=== PATIENT | female | born 1960 | race Caucasian/White ===

== ENCOUNTER 2018-12-15 09:03 | Day surgery (SDC) | payer BC, OTHER ==
[2018-12-15] MEDS ORDERED: Propofol 200 MG/20 ML SDV ONE (09:25)
[2018-12-15] MEDS ORDERED: fentaNYL 100 MCG/2 ML SDV ONE (09:25)
[2018-12-15] MEDS ORDERED: Midazolam 1 MG/ML 2 ML SDV ONE (09:25)
[2018-12-15] MEDS ORDERED: Dextrose 5%-Lactated Ringers 1,000 ML IV SCH (09:45)
[2018-12-15] MEDS ORDERED: Glycopyrrolate 0.2 MG/ML 2 ML SDV IVPUSH ONE (10:00)
--- NOTE | 2018-12-19 11:07 | OR ---
DATE OF PROCEDURE: 12/15/2018 SURGEON: Erlin Lala MD PREOPERATIVE DIAGNOSIS: Weight regain, status post laparoscopic adjustable gastric band placement. POSTOPERATIVE DIAGNOSES: 1. Weight regain, status post laparoscopic adjustable gastric band placement. 2. Marked esophageal dilation and esophagitis above the band. OPERATIVE PROCEDURE: Esophagogastroduodenoscopy with antral biopsies for CLOtest. ANESTHESIA: IV sedation. INDICATION FOR PROCEDURE: This is a 58-year-old, status post laparoscopic adjustable gastric band placement in December of 2006. This was done in [facility] in [place]. The patient's preoperative weight was 245 pounds. She did get down to around 203 pounds, more or less, postoperatively and maintained the range in the 203 to 208 pounds range for 5 years and gradually has increased her weight. Her present weight is 236 pounds with a height of 5 feet 4.5 inches, giving her a BMI of 39.9. At this point, the patient wishes to consider conversion of band status to Ruperto-en-Y gastric bypass. Plan is to proceed with an upper GI endoscopy for evaluation of the band situation, and potential risks including bleeding and perforation were discussed, and the patient wishes to proceed. DETAILS OF PROCEDURE: The patient was taken to the operating room and placed in a left lateral decubitus position. IV sedation was administered, after which the upper GI endoscope was passed orally through the length of the esophagus into the stomach, and from there, through the pyloric channel and into the proximal duodenum. Findings included a quite markedly dilated esophagus with some marked esophagitis in the distal one-third of the esophagus. This was associated with a band implant, which was in normal location and easily traversed, i.e., there is no obstruction related to the band. We were likely dealing with an esophageal dilation above the band. Apart from that, retroflexion in the stomach revealed no evident complications with the band, such as erosion, and there was some patchy antral gastritis. The visualized portion of the pyloric channel and duodenum were unremarkable. At this point, biopsies were taken from the antrum, and they were sent for CLOtest to assess the patient's H. pylori status, and the scope was withdrawn and the procedure was then concluded. The patient appeared to be a candidate for conversion to Ruperto-en-Y gastric bypass, and in fact, given the degree of esophageal dilation, this would appear to be medically necessary. This will also result in improvement in the patient's obesity to a significant degree, and we will contact the patient's health insurance regarding prior authorization for the conversion of the band to Ruperto-en-Y gastric bypass status. Erlin Lala MD /[id number]
== END 2018-12-15 13:03 | disposition home or self-care (01) ==
LOC: JP.SDS 09:03
PROVIDERS: ATTEND Surgery
DX: K20.9 Esophagitis, unspecified (principal); K29.70 Gastritis, unspecified, without bleeding; Z98.84 Bariatric surgery status; E66.01 Morbid (severe) obesity due to excess calories; Z68.39 Body mass index [BMI] 39.0-39.9, adult; Z88.0 Allergy status to penicillin
CPT/HCPCS: 43239; 87081; J2250; J2704; J3010; J3490; J7042

== ENCOUNTER 2019-03-05 05:28 | Inpatient (IN) | payer OTHER ==
[2019-03-05] MEDS ORDERED: Celecoxib 200 MG Cap PO ONE (05:30)
[2019-03-05] MEDS ORDERED: Gabapentin 300 MG Cap PO ONE (05:30)
[2019-03-05] MEDS ORDERED: Acetaminophen 500 MG Tab PO ONE (05:30)
[2019-03-05] MEDS ORDERED: Scopolamine 1.5 MG Transdermal Patch TOP ONE (06:00)
[2019-03-05] MEDS ORDERED: Dextrose 5%-Lactated Ringers 1,000 ML IV SCH (06:00)
[2019-03-05] MEDS ORDERED: fentaNYL 250 MCG/5 ML SDV ONE ×2 (06:37→08:26)
[2019-03-05] MEDS ORDERED: Lactated Ringers 1,000 ML ONE (06:38)
[2019-03-05] MEDS ORDERED: Dexamethasone 4 MG/ML SDV ONE (06:38)
[2019-03-05] MEDS ORDERED: Ondansetron 4 MG/2 ML SDV ONE (06:38)
[2019-03-05] MEDS ORDERED: Neostigmine Methylsulfate 1 MG/ML 5 ML Syringe ONE (06:38)
[2019-03-05] MEDS ORDERED: Rocuronium 50 MG/5 ML Vial ONE (06:38)
[2019-03-05] MEDS ORDERED: Propofol 200 MG/20 ML SDV ONE (06:38)
[2019-03-05] MEDS ORDERED: Glycopyrrolate 0.2 MG/ML 5 ML MDV ONE (06:38)
[2019-03-05] MEDS ORDERED: Succinylcholine 200 MG/10 ML MDV ONE (06:38)
[2019-03-05] MEDS ORDERED: cefOXitin 2 GM Vial ONE (06:41)
[2019-03-05] MEDS: cefOXitin 2 GM in Sodium Chloride 0.9% 50 ML IV ONE ×2 (07:26→08:46)
[2019-03-05] MEDS ORDERED: Lidocaine 0.4%/D5W 2 GM/500 ML BAG IV SCH (07:30)
[2019-03-05] MEDS ORDERED: Ketamine 500 MG/5 ML MDV IV SCH (07:30)
[2019-03-05] MEDS ORDERED: Ketamine 50 MG in Sodium Chloride 0.9% 49.5 ML IV SCH (07:30)
[2019-03-05] MEDS ORDERED: Lidocaine 2% 100 MG/5 ML Syringe IVPUSH SCH (07:30)
[2019-03-05] MEDS ORDERED: HYDROmorphone 1 MG/ML Syringe IV PRN (11:20)
[2019-03-05] MEDS ORDERED: Ondansetron 4 MG/2 ML SDV IVPUSH PRN (11:20)
[2019-03-05] MEDS ORDERED: HYDROmorphone 0.5 MG/0.5 ML Syringe IVPUSH PRN (11:20)
[2019-03-05] MEDS ORDERED: hydrOXYzine HCl 100 MG/2 ML SDV IM PRN (11:20)
[2019-03-05] MEDS ORDERED: diphenhydrAMINE 50 MG/ML SDV IVPUSH PRN (11:20)
[2019-03-05] MEDS ORDERED: Labetalol 20 MG/4 ML Syringe IVPUSH PRN (11:20)
[2019-03-05] MEDS ORDERED: Metoclopramide 10 MG/2 ML SDV IVPUSH PRN (11:20)
[2019-03-05] MEDS ORDERED: Pantoprazole 40 MG Vial IVPUSH SCH (12:00)
[2019-03-05] MEDS ORDERED: Acetaminophen Soln 650 MG/20.3 ML UD Cup PO SCH (12:00)
[2019-03-05] MEDS: Dextrose 5%-Lactated Ringers 1,000 ML IV SCH ×2 (12:09→23:15)
[2019-03-05] MEDS: Acetaminophen 325 MG Tab PO SCH ×3 (12:11→23:14)
[2019-03-05] MEDS: Gabapentin 250 MG/5 ML Solution ML 470 ML Bottle PO SCH ×2 (14:04→20:18)
[2019-03-05] MEDS: cefOXitin 2 GM in Sodium Chloride 0.9% 50 ML IV SCH ×2 (14:05→20:18)
[2019-03-05] MEDS ORDERED: MVI, Adult with Vitamin K 10 ML, Thiamine 200 MG, Chromium/Copper/Mang/Selen/Zn 1 ML in... IV SCH ×4 (16:00)
[2019-03-05] MEDS: Heparin Sodium 5,000 Units/ML Vial SUBCUT SCH (17:49)
[2019-03-06] MEDS: cefOXitin 2 GM in Sodium Chloride 0.9% 50 ML IV SCH ×3 (01:50→14:08)
[2019-03-06] MEDS ORDERED: Iopamidol 612 MG/ML 50 ML SDV PO STA (02:53)
--- NOTE | 2019-03-06 03:21 | CRLCR ---
Indication: Status post Ruperto-en-Y leak check Technique: Abdomen 3 view Comparison: None Findings/Impression: Three submitted images for interpretation. On the 1st image, contrast is present in the distal esophagus, residual stomach and proximal small bowel with a suture line in the epigastric region. Left upper quadrant drain present. Subsequent 2 images show further small bowel opacification consistent with a gastrojejunostomy without gross extravasation. Dictated by Nikolay Escalante MD @ Mar 06 2019 3:18AM Signed by Dr. Nikolay Escalante @ Mar 06 2019 3:20AM
[2019-03-06] MEDS: Acetaminophen 325 MG Tab PO SCH ×4 (05:33→23:29)
[2019-03-06] MEDS: Heparin Sodium 5,000 Units/ML Vial SUBCUT SCH ×2 (05:36→17:09)
[2019-03-06] MEDS: Dextrose 5%-Lactated Ringers 1,000 ML IV SCH (05:36)
[2019-03-06] MEDS: Celecoxib 200 MG Cap PO SCH (08:17)
[2019-03-06] MEDS: Gabapentin 250 MG/5 ML Solution ML 470 ML Bottle PO SCH ×3 (08:17→20:59)
[2019-03-06] MEDS ORDERED: traZODone 50 MG Tab PO PRN (08:44)
[2019-03-06] MEDS ORDERED: Dextrose 5%-Lactated Ringers 1,000 ML IV SCH (08:45)
[2019-03-06] MEDS: SCOPOLAMINE PATCH CHECK TOP SCH (09:37)
[2019-03-06] MEDS: Aspirin 81 MG Tab.EC PO SCH (09:52)
[2019-03-06] MEDS: Chlorthalidone 25 MG Tab PO SCH (09:52)
[2019-03-06] MEDS: FLUoxetine 10 MG Cap PO SCH (09:52)
[2019-03-06] MEDS ORDERED: Pantoprazole 40 MG Delayed-Release Granules 1 Packet PO SCH (12:00)
[2019-03-06] MEDS ORDERED: MVI, Adult with Vitamin K 10 ML, Thiamine 200 MG, Chromium/Copper/Mang/Selen/Zn 1 ML in... IV SCH ×4 (16:00)
[2019-03-07] MEDS: Acetaminophen 325 MG Tab PO SCH (05:56)
[2019-03-07] MEDS: Heparin Sodium 5,000 Units/ML Vial SUBCUT SCH (05:56)
[2019-03-07] MEDS ORDERED: Magnesium Hydroxide 400 MG/5 ML Susp 30 ML Cup PO PRN (07:24)
[2019-03-07] MEDS: Gabapentin 250 MG/5 ML Solution ML 470 ML Bottle PO SCH (08:52)
[2019-03-07] MEDS: Aspirin 81 MG Tab.EC PO SCH (08:53)
[2019-03-07] MEDS: Chlorthalidone 25 MG Tab PO SCH (08:53)
[2019-03-07] MEDS: FLUoxetine 10 MG Cap PO SCH (08:53)
[2019-03-07] MEDS: SCOPOLAMINE PATCH CHECK TOP SCH (08:53)
[2019-03-07] MEDS: Celecoxib 200 MG Cap PO SCH (08:53)
[2019-03-07] MEDS ORDERED: Cyanocobalamin (Vitamin B12) 1,000 MCG/ML SDV IM ONE (09:00)
--- NOTE | 2019-03-07 15:06 | DISCH ---
ADMISSION DIAGNOSES: 1. Morbid obesity. 2. Intolerance to gastric laparoscopic band. 3. Generalized anxiety disorder. 4. Heartburn. 5. Hyperlipidemia. 6. Hypertension. 7. Insomnia. 8. Obstructive sleep apnea, on CPAP. 9. Osteopenia. DISCHARGE DIAGNOSIS: 1. Removal of laparoscopic gastric band system. 2. Formation of Ruperto-en-Y gastric bypass surgery. 3. Liver biopsy. 4. 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 Date of surgery 03/05/2019. Surgeon, Erlin Lala MD. HISTORY: Aiyana Ortiz is a 58-year-old female, who had laparoscopic gastric band system. She had intolerance to the lap band with gastric reflux. She also had some weight regain. After preoperative evaluation and discussion of possible risks and possible complications, she wished to proceed with surgical procedure. HOSPITAL COURSE: Aiyana had her surgery on 03/05/2019. She had no operative complications. On postoperative day #1, she was started on step 2 gastric bypass diet, her home medications. On postoperative day #2, she received dietary instruction, a B12 1000 mcg IM injection, postop instructions. Vital signs were stable, pain was well managed, and she was able to be discharged to home. PHYSICAL EXAMINATION: GENERAL: Aiyana Ortiz is a 58-year-old female. Height is 5 feet 4.5 inches, weight is 226 pounds, BMI is 38. VITAL SIGNS: TPR is 98, 58, 16. Blood pressure 122/52. HEENT: Negative. NECK: Supple. HEART: Regular rate and rhythm. LUNGS: Clear. ABDOMEN: Incisions look good. Abdominal binder is on. EXTREMITIES: Without peripheral edema. DISPOSITION: Discharged home. CONDITION: Stable and improving. FOLLOWUP APPOINTMENT: Vivian Haley PA-C, 03/14/2019 at 11 a.m. DISCHARGE MEDICATIONS: 1. Tylenol 650 mg q.6 hours p.r.n. pain. 2. Celebrex 200 mg p.o. daily #14. 3. Milk of magnesia 30 mL, 2 were sent home with the patient to take daily as needed for constipation. 4. Zofran ODT 4 mg q.6 hours p.r.n. nausea #30. She is to resume home medications: 1. Chlorthalidone 12.5 mg oral daily. 2. Fluoxetine 10 mg oral daily. 3. Claritin-D 24 hour tablet one oral daily p.r.n. allergies. 4. Lipitor 20 mg oral daily. 5. Trazodone 25 mg oral at bedtime p.r.n. sleep. Discontinue taking all vitamins and supplements until first postoperative appointment. DIET: Step 2 gastric bypass diet for 2 weeks until 03/20/2019. Drink 8 to 10 glasses of water a day. ACTIVITY: No lifting greater than 10 pounds for 2 weeks. Other activity: Walk at least 6 times daily inside your home. Driving, do not drive for one week. Shower/bathing: May shower. DISCHARGE INSTRUCTIONS: Notify provider if any fever, increased pain, nausea, vomiting. Keep site clean and dry. Wear abdominal binder for 2 weeks and then as tolerated. SPECIAL INSTRUCTION: Use incentive spirometer 10 times every hour while awake for 1 week. CC: Francine Choudhury [employer] [place] [id number] [place] [address]
--- NOTE | 2019-03-09 17:39 | PN ---
DATE OF SERVICE: 03/06/2019 The patient has been afebrile with stable vital signs, status post conversion of band status to Ruperto-en-Y gastric bypass. Clinically, she is doing well at this point, and her upper GI x-ray looks good. We will go up to a step-2 diet today and pain control is adequate. We will restart some of her pertinent oral medications. Erlin Lala MD /[id number]
--- NOTE | 2019-03-12 11:43 | OR ---
DATE OF PROCEDURE: 03/05/2019 PREOPERATIVE DIAGNOSIS: Progressive intolerance of laparoscopic adjustable gastric band associated with weight regain. POSTOPERATIVE DIAGNOSES: 1. Progressive intolerance of laparoscopic adjustable gastric band associated with weight regain. 2. Marked hepatomegaly. 3. Immobile small bowel mesentery, requiring small bowel resection to allow adequate mobility of jejunojejunostomy. OPERATIVE PROCEDURE: Diagnostic laparoscopy with 1. Removal of laparoscopic adjustable gastric band system (61664). 2. Formation of Ruperto-en-Y gastric bypass with long limb gastroenterostomy (96679). 3. Palmer-Cut needle liver biopsy (59088). 4. Small bowel resection (05462). ANESTHESIA: General. ATHLETIC FIELD CUSTODIAN: Vivian Haley PA-C, and KELSI Denton1. INDICATION FOR PROCEDURE: This is a 58-year-old presenting for removal of laparoscopic adjustable gastric band system along with conversion to Ruperto-en-Y gastric bypass. The patient has had significant weight regain with the band in place. The patient also had developed pain at her port site as well as symptoms consistent with the endoscopically identified esophageal dilation and fluid retention within the esophagus. The plan is to proceed with band removal and conversion to Ruperto-en-Y gastric bypass. Potential risks including bleeding, infection, leaks from various GI tract closures as well as possibility of bowel obstruction over time were all reviewed, and the patient wishes to proceed. DETAILS OF PROCEDURE: The patient was taken to the operating room and placed in a supine position. After general endotracheal anesthesia was induced, a Koehler catheter was inserted which was removed at the end of the procedure and the abdomen prepped and draped. 15 cm inferior and 5 cm left of xiphoid process, a transverse incision was made and the peritoneal cavity entered under direct vision with an Optiview trocar, inflated to 15 mmHg pressure of CO2. Laparoscope was then reinserted. No underlying trocar insertion site injuries were seen. Following this, bilateral subcostal transverse abdominis plane blocks were placed and 5 additional trocars were placed across the upper and mid abdomen. Attention was then taken initially to removal of the band. The liver was retracted anteriorly, and some attachments between the band and the area of the stomach and the liver were taken down with Harmonic Scalpel. The band was then freed up of its fibrous attachments to the point that it could be mobilized through the band tunnel. The band was divided and removed from the area of encirclement of the gastric cardia. The port tubing was divided in the main portion of the band. It was then detached and brought out through the left lateral trocar site. At this point, the pouch formation was accomplished by means of vision of the imprinted area in the gastric cardia, which provided a nice-sized pouch. This was done with 3 firings of JOSE black loads, and upon completion of the pouch, both staple lines appeared to be intact. At this point, the patient was noted to have marked hepatomegaly, and Palmer-Cut needle biopsy was obtained from left lobe of the liver. The omentum was then divided in the midline up to the level of the transverse colon. This allowed identification of small bowel at ligament of Treitz. The small bowel was then traced out 150 cm distal to that point, where it was divided transversely with the JOSE stapler. The small bowel mesentery was quite thickened and foreshortened. Some of this was related to the band tubing being down in the area of the mesenteric base causing some fibrous reaction in those areas to facilitate a more adequate mobility of the jejunojejunostomy. Roughly 10 cm of the biliopancreatic limb was then divided after division of the underlying mesentery and the small limb being divided with additional JOSE staple load. That small bowel specimen was delivered from the field. The small bowel was then traced out 200 cm distal to that point, where the [id number] enteroenterostomy was accomplished with internal firing of the Endo-JOSE 60 mm stapler. Common opening was then closed transversely with the same stapler and the angles anastomosed and mesenteric defect approximated with some 0 Ethibond stitch along with 4 mL of fibrin sealant. The Ruperto limb was then brought up through the antecolic, positioned up to the level of the gastroesophageal junction without tension. The anvil of a 25 mm EEA stapler was then attached to Uinta sump tube, brought down through the mouth, taken out a small opening in the gastric pouch just posterior of the staple line along the anvil likewise to be pulled down into that area. The main body of the EEA stapler was then brought through the opening made in the end of the Ruperto limb, brought up the anvil, and united with it thus creating gastrojejunostomy. Upon removal of the stapler, double donuts of the mucosa were noted within it, and the small bowel was closed off with a vascular staple line. Gastrojejunostomy was reinforced with some 3-0 Vicryl seromuscular stitch along with fibrin sealant. The omentum was then mobilized along the left side of the anastomosis to the extent possible as well. Leak test was accomplished with injection of 120 mL of air in the gastric pouch while it was submerged with cefoxitin-containing saline solution. No leaks were identified. A single Vinny-Parish drain was then placed through the left lateral trocar site and positioned adjacent to the gastric cardia and from there down into the splenic fossa. With no further problems noted, the trocars were removed and the peritoneal cavity deflated. Incisions were closed with 4-0 Vicryl skin stitch and dressing applied. The patient was taken to the recovery room in satisfactory condition. Physician per diem physical therapist assistant, Vivian Haley, played an essential role in assisting in this case, helping to position the patient, retract structures as needed as well as suturing and cutting sutures when indicated. Her presence improved patient safety and decreased the operative time. Erlin Lala MD /[id number]
== END 2019-03-07 10:10 | disposition home or self-care (01) | DRG 328 ==
LOC: JP.SDSSCHI 05:28 → JP.SDS 05:28 → EDSTATUS 07:15 → JP.2SS 10:00
PROVIDERS: ADMIT Surgery; ATTEND Surgery
PROC: 0DP64CZ Removal of Extraluminal Device from Stomach, Percutaneous Endoscopic Approach (ICD-10-PCS; principal; 2019-03-05)
PROC: 0D164ZA Bypass Stomach to Jejunum, Percutaneous Endoscopic Approach (ICD-10-PCS; 2019-03-05)
PROC: 0FB24ZX Excision of Left Lobe Liver, Percutaneous Endoscopic Approach, Diagnostic (ICD-10-PCS; 2019-03-05)
PROC: 0DB84ZZ Excision of Small Intestine, Percutaneous Endoscopic Approach (ICD-10-PCS; 2019-03-05)
DX: K95.09 Other complications of gastric band procedure (principal); Y83.8 Other surgical procedures as the cause of abnormal reaction of the patient, or of later complication, without mention of misadventure at the time of the procedure; Z98.84 Bariatric surgery status; E66.9 Obesity, unspecified; Z68.38 Body mass index [BMI] 38.0-38.9, adult; R16.0 Hepatomegaly, not elsewhere classified; K59.8 Other specified functional intestinal disorders; F41.1 Generalized anxiety disorder; E78.5 Hyperlipidemia, unspecified; I10 Essential (primary) hypertension; G47.33 Obstructive sleep apnea (adult) (pediatric); Z99.89 Dependence on other enabling machines and devices; Z86.718 Personal history of other venous thrombosis and embolism; M25.659 Stiffness of unspecified hip, not elsewhere classified; M25.652 Stiffness of left hip, not elsewhere classified; G47.00 Insomnia, unspecified; M85.80 Other specified disorders of bone density and structure, unspecified site; Z78.0 Asymptomatic menopausal state; R06.83 Snoring; H25.13 Age-related nuclear cataract, bilateral; Z79.82 Long term (current) use of aspirin; Z90.710 Acquired absence of both cervix and uterus; R63.5 Abnormal weight gain
CPT/HCPCS: 36415; 74240; 86850; 86900; 86901; 88304; 88305; 88307; 88313; 94762; A9270-GY; C9113; J0171; J0330; J0694; J1100; J1644; J2001; J2405; J2704; J2710; J2795; J3010; J3411; J3420; J3490; J7042; J7050; J7120; Q9967

== ENCOUNTER 2019-03-08 08:27 | Inpatient (IN) | payer OTHER ==
[2019-03-08] MEDS ORDERED: Scopolamine 1.5 MG Transdermal Patch TOP SCH (09:00)
[2019-03-08] MEDS ORDERED: Naloxone 0.4 MG/ML SDV IV PRN (09:04)
[2019-03-08] MEDS: HYDROmorphone/Normal Saline 15 MG/30 ML PCA IV PRN (09:26)
[2019-03-08] MEDS: Sodium Chloride 0.9% 1,000 ML IV SCH (09:31)
[2019-03-08] MEDS ORDERED: Ondansetron 4 MG/2 ML SDV IVPUSH PRN (10:56)
[2019-03-08] MEDS ORDERED: fentaNYL 250 MCG/5 ML SDV ONE ×2 (14:25→18:24)
[2019-03-08] MEDS ORDERED: Glycopyrrolate 0.2 MG/ML 5 ML MDV ONE (14:26)
[2019-03-08] MEDS ORDERED: Propofol 200 MG/20 ML SDV ONE (14:26)
[2019-03-08] MEDS ORDERED: Rocuronium 50 MG/5 ML Vial ONE ×2 (14:26→17:26)
[2019-03-08] MEDS ORDERED: Succinylcholine 200 MG/10 ML MDV ONE (14:26)
[2019-03-08] MEDS ORDERED: Ondansetron 4 MG/2 ML SDV ONE (14:26)
[2019-03-08] MEDS ORDERED: Neostigmine Methylsulfate 1 MG/ML 5 ML Syringe ONE (14:26)
[2019-03-08] MEDS ORDERED: Dexamethasone 4 MG/ML SDV ONE (14:26)
[2019-03-08] MEDS ORDERED: Bupivacaine 0.5%/EPINEPHrine 1:200,000 50 ML MDV ONE (17:16)
[2019-03-08] MEDS ORDERED: Meropenem 500 MG SDV ONE (17:16)
[2019-03-08] MEDS ORDERED: hydrOXYzine HCl 100 MG/2 ML SDV IM PRN (18:11)
[2019-03-08] MEDS ORDERED: Benzocaine/Cetylpyridinium/Menthol Lozenge MUCMEM PRN (18:11)
[2019-03-08] MEDS ORDERED: diphenhydrAMINE 50 MG/ML SDV IVPUSH PRN (18:11)
[2019-03-08] MEDS ORDERED: Lactated Ringers 1,000 ML ONE (18:25)
[2019-03-08] MEDS ORDERED: Ketorolac 60 MG/2 ML SDV ONE (18:34)
--- NOTE | 2019-03-08 20:34 | CRLCR ---
INDICATION: Pneumonia TECHNIQUE: Chest radiograph 1 view COMPARISON: None FINDINGS: Severe degradation of image quality noted due to body habitus. Mediastinum: The mediastinum is normal in appearance. The heart silhouette is normal in size and morphology. Lung: Small lung volumes are present bilaterally with patchy airspace infiltrates seen throughout the left lung, likely due to pneumonia. No sign of pleural effusion seen. No pneumothorax is identified. IMPRESSION: 1. Small lung volumes are present bilaterally with patchy airspace infiltrates seen throughout the left lung, likely due to pneumonia. Dictated by Bhanu Casillas MD @ 03/08/2019 8:31:51 PM Dictated by: Bhanu Casillas MD @ 03/08/2019 20:31:54 (Electronically Signed)
[2019-03-08] MEDS ORDERED: Sodium Chloride 0.9% 250 ML IV SCH (21:00)
[2019-03-08] MEDS ORDERED: Sodium Chloride 0.9% 250 ML IV ONE (21:06)
[2019-03-08] MEDS ORDERED: Sodium Chloride 0.9% 1,000 ML IV ONE (23:10)
[2019-03-08] MEDS: Albuterol/Ipratropium 3.0-0.5 MG/3 ML Neb Soln NEB PRN (23:21)
[2019-03-09] MEDS: Sodium Chloride 0.9% 1,000 ML IV SCH ×4 (00:14→23:26)
[2019-03-09] MEDS ORDERED: Iopamidol 612 MG/ML 50 ML SDV PO ONE (08:13)
--- NOTE | 2019-03-09 08:18 | OR ---
DATE OF PROCEDURE: 03/08/2019 SURGEON: Yao Aleman MD PROCEDURES: 1. Diagnostic laparoscopy. 2. Reopening of recent laparotomy. 3. Revision of jejunojejunal anastomosis. FINDINGS: 1. Typical postoperative adhesions secondary to recent laparoscopic Ruperto-en-Y. 2. Jejunojejunal narrowing (not complete narrowing, approximately 50% of luminal volume remains). 3. Significant inflammation of the jejunojejunal anastomosis. 4. Small leak of gastrointestinal contents at the jejunojejunal anastomosis. 5. No other gross abnormalities. COMPLICATIONS: None. PERISHABLE FREIGHT INSPECTOR: None. INDICATIONS: A 58-year-old female who has been diagnosed with a high-grade bowel obstruction at another facility. The patient had significant acute pain in the last 24-hour period. RISKS: Risks, benefits, alternatives, and limitations including, but not limited to infection, bleeding, and perforation were explained to the patient, who wished to proceed. She also understood the risks of revision, open surgery, sepsis, , and other general postoperative complications such as myocardial infarction and stroke. The patient understands these risks and wished to proceed. PROCEDURE IN DETAIL: The patient was placed in a supine position. One of the previous laparoscopic port sites would be opened. This was opened and Optiview trocar was inserted. The patient had, what would be expected as, adhesions in the postoperative period. This was also in conjunction with previous lower abdominal incisions from surgeries in the remote past. Due to these adhesions and the inflammation, it was unable to determine the etiology of this; therefore, this was converted to an open laparotomy. A midline abdominal incision was made. The incision was carried down with electrocautery, and the abdomen was opened sharply with electrocautery. No evidence of enterotomy or abnormality noted during the entry. The small bowel was significantly dilated. The Ruperto-en-Y limb itself showed lymphatic congestion and dilation. This was also similar to the biliopancreatic limb, which also showed significant congestion, dilation and lymphatic congestion. At the jejunal outflow for the common channel, there was significant narrowing due to inflammation. The limb was not stapled off. However, this inflammation was most likely secondary to a small perforation, which was noted and well contained. Therefore, the decision was made to resect this jejunal anastomosis for the concern of a future or ongoing leak. The jejunal anastomosis was removed by using purple load staplers. This was in conjunction with pro yola. The vasculature was transected with pro load staplers. Once this was completed, the common channel was traced back to the ileocecal valve and then ran in a retrograde fashion to ensure a common channel. The anastomosis would be created by [id number] functional end-to-end staplers. These were double anastomosis with two 60 staplers, Vicryl sutures to reinforce the sutures to prevent "unzipping." Once the [id number] anastomosis was completed, the defect in the bowel was grasped with Stephanie clamps and subsequently transected. All anastomoses were inspected for viability, flow, leak, and bleeding, all were viable with no evidence of bleeding and no leaks noted. These were then reinforced with some Vicryl sutures. In addition, Tisseel, 8 mL, was used to reinforce this. Irrigation was performed at multiple points during this procedure with irrigation of both meropenem containing normal saline and normal saline. Once the anastomosis was noted to be viable and complete with Tisseel, two 10 flat Vinny- Parish drains were placed. One was placed in close proximity to the anastomosis and the other was placed in the lower pelvis. A third Vinny-Parish drain, which would be the superior one of the 3 drains, was also placed in the subcutaneous tissues. The fascia was then closed with #1 Vicryl in running sutures x2. The subcutaneous tissues were approximated and thoroughly irrigated. Skin was closed with yola. All drains were sutured in with silk sutures. Aquacel Ag dressing was applied. The patient remained normothermic during the entire procedure. There was no evidence of hypoxia. The patient did not have any episodes of hypotension during this procedure. The patient tolerated the procedure well. Yao Aleman MD /[id number]
--- NOTE | 2019-03-09 08:30 | CONS ---
DATE OF SERVICE: 03/08/2019 REFERRING PHYSICIAN: CONSULTING PHYSICIAN: Yao Aleman MD REASON FOR CONSULTATION: Abdominal pain. HISTORY OF PRESENT ILLNESS: A 58-year-old female who was admitted by the Bariatric Service for evaluation of abdominal pain. The patient was discharged on 03/07/2019, with an admission diagnosis related to a conversion of laparoscopic band to Ruperto-en-Y with small bowel resection. The patient was noted to have dietary instruction, along with starting a diet. She did not have a bowel movement during her hospitalization. The patient reports last bowel movement was a day prior to admission. Her pain is described as 5 to 6/10, is intermittent. A CT scan, which report is not available during this consultation, reports a high-grade bowel obstruction. No physician-to- physician report was given. PAST MEDICAL HISTORY: 1. Osteopenia. 2. History of knee pain. 3. Insomnia. 4. Hypertension. 5. Hyperlipidemia. 6. Heartburn. 7. Anxiety. 8. History of colon polyps. 9. Cataracts. 10.DVT. 11.Knee pain. 12.Sciatic problems. 13.Appendectomy. 14. x2. 15.Band as described above. 16.Hysterectomy. 17.Ventral hernia repair. SOCIAL HISTORY: She is not a smoker. REVIEW OF SYSTEMS: GENERAL: The patient is appropriate for condition. HEENT: Some coughing. CARDIOVASCULAR: No current chest pain. RESPIRATORY: Mild shortness of breath. NEUROLOGICAL: Alert and oriented x3. PSYCHIATRIC: No gross depression. PHYSICAL EXAMINATION: VITAL SIGNS: Temperature 96.4, blood pressure 154/72, pulse 63, respirations 18, and 97% on 2 L. HEENT: Pupils are equal. NECK: Supple. LUNGS: Crackles bilaterally. CARDIOVASCULAR: Regular rhythm and rate. ABDOMEN: Pain with palpation, diffuse mild tenderness, mild guarding, no rebound. EXTREMITIES: Full range of motion. LABORATORY RESULTS: No laboratory results ordered, but apparently were performed at another facility, but not available at this moment. A CT scan as described above. ASSESSMENT AND PLAN: 1. Abdominal pain, report of narrowing/stricture at the Jejunojejunal anastomosis. Plan: The patient will be taken to the operating room for exploratory diagnostic laparoscopy. There is obviously concern at the jejunojejunal anastomosis for a pending problem. The patient also states she has not passed gas for a few days. Plan will be diagnostic laparoscopy with possible revision of her jejunojejunal anastomosis or her Ruperto-en-Y limb. If this is an internal hernia, this will obviously be reduced. We also discussed the possibility of open surgery. We discussed risks, benefits, alternatives, and limitations of this plan, including infection, bleeding, requirement for revision of jejunojejunal anastomosis, septic shock, respiratory failure, cardiovascular compromise, and other risks not listed here. 2. Pneumonia. The patient has pneumonia reported. We will start the patient on broad- spectrum antibiotics in the postoperative pneumonia protocol. Yao Aleman MD /[id number]
[2019-03-09] MEDS: Enoxaparin 40 MG/0.4 ML Syringe SUBCUT SCH (09:00)
[2019-03-09] MEDS: SCOPOLAMINE PATCH CHECK TOP SCH (09:17)
--- NOTE | 2019-03-09 09:29 | CRLCR ---
Addendum: There is air in fluid in the gastric remnant. Contrast is identified within the loop of small bowel in the left abdomen that is likely distal to the jejunostomy. No evidence for small bowel leak or extraluminal contrast. Dictated by Micaela Marino MD @ Mar 09 2019 10:58AM Signed by Dr. Micaela Marino @ Mar 09 2019 11:01AM
--- NOTE | 2019-03-09 09:47 | CRLCR ---
INDICATION: Shortness of breath TECHNIQUE: Chest 2 views. COMPARISON: 17 ET FINDINGS: Two views of the chest. The lungs show mild interstitial opacities consistent with pulmonary edema. This may be increased in the prior study. No evidence for pneumonia. Costophrenic angles sharp. Heart size is within normal. IMPRESSION: Mild pulmonary edema. Dictated by Micaela Marino MD @ Mar 09 2019 9:53AM Signed by Dr. Micaela Marino @ Mar 09 2019 9:54AM
--- NOTE | 2019-03-09 11:18 | PN ---
DATE OF SERVICE: 03/09/2019 SUBJECTIVE: The patient is doing well, significantly improved compared to last night. 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 No nausea, vomiting, shortness of breath, or chest pain. Pain is tolerable with a 2 to 3 out of 10 with Dilaudid. PHYSICAL EXAMINATION: VITAL SIGNS: Temperature 98.3, blood pressure 97/62, pulse of 83, respirations 14, 95% on 6 L. CARDIOVASCULAR: Regular rhythm and rate. RESPIRATORY: Poor inspiratory effort bilaterally. ABDOMEN: Dressing intact. Drain output is serosanguineous. LABORATORY RESULTS: Show hemoglobin 11.9, white blood cell count is normal. Creatinine is slightly elevated at 1.4. ASSESSMENT: Status post revision of jejunojejunal anastomosis. PLAN: 1. GI: The patient will undergo an upper GI. She has already been started on a clear liquid diet, but not taking much amount of intake. 2. Pain. Continue Dilaudid QUALITY ASSURANCE ASSOCIATE. 3. General Disability: We will work on activity and ambulation today. 4. Prophylaxis. The patient is on SCD and Lovenox. 5. Pneumonia: She is on meropenem. Overall, her stats show subjective and objective improvement compared to last 24 hours. 6. ICU status. The patient will remain in the ICU until her saturations are improved. 7. The patient will be transferred to Dr. Chadwick today. Yao Aleman MD /[id number]
[2019-03-10] MEDS: Albuterol/Ipratropium 3.0-0.5 MG/3 ML Neb Soln NEB PRN ×2 (00:38→04:49)
[2019-03-10] MEDS: HYDROmorphone/Normal Saline 15 MG/30 ML PCA IV PRN (04:38)
[2019-03-10] MEDS: Sodium Chloride 0.9% 1,000 ML IV SCH ×3 (07:30→22:31)
[2019-03-10] MEDS: Enoxaparin 40 MG/0.4 ML Syringe SUBCUT SCH (09:51)
--- NOTE | 2019-03-10 09:56 | PCM.SURGPN ---
- General Info Date of Service: 03/10/19 Date of Surgery/Procedure: 03/08/19 POD#: 2 Post-Op Diagnosis: Leak Admission Diagnosis/Problem: Abdominal pain Functional Status: Reports: Pain Controlled, Tolerating Diet, Ambulating, Urinating (Koehler), Incentive Spirometry - Review of Systems General: Reports: No Symptoms HEENT: Reports: No Symptoms Pulmonary: Reports: No Symptoms Cardiovascular: Reports: No Symptoms Gastrointestinal: Reports: No Symptoms, Other (Tolerating Step 1 bariatric diet) . Denies: Flatus Genitourinary: Reports: No Symptoms Musculoskeletal: Reports: No Symptoms Skin: Reports: No Symptoms Neurological: Reports: No Symptoms Psychiatric: Reports: No Symptoms - Patient Data Vitals - Most Recent: Last Vital Signs Temp 95.8 F 03/10/19 07:00 Pulse 83 03/10/19 09:00 Resp 19 03/10/19 07:00 BP 108/66 03/10/19 07:00 Pulse Ox 96 03/10/19 07:00 Weight - Most Recent: 238 lb I&O - Last 24 Hours: Intake & Output 03/09/19 03/10/19 03/10/19 22:59 06:59 14:59 Intake Total 2566 1353 Output Total 475 625 Balance 2095 728 Lab Results Last 24 Hrs: Laboratory Results - last 24 hr 03/10/19 Range/Units 04:40 WBC 13.0 H (4.5-11.0) K/uL RBC 3.34 (3.30-5.50) M/uL Hgb 10.2 L (12.0-15.0) g/dL Hct 33.4 L (36.0-48.0) % MCV 100 H (80-98) fL MCH 31 (27-31) pg MCHC 31 L (32-36) % Plt Count 242 (150-400) K/uL Add Manual Diff Yes Neutrophils % (Manual) 57 (36-66) % Band Neutrophils % 15 H (5-11) % Lymphocytes % (Manual) 14 L (24-44) % Monocytes % (Manual) 13 H (2-6) % Eosinophils % (Manual) 1 L (2-4) % Med Orders - Current: Current Medications Albuterol/Ipratropium (Duoneb 3.0-0.5 Mg/3 Ml) 3 ml NEB Q4H PRN PRN Reason: Shortness of Breath Last Admin: 03/10/19 04:49 Dose: 3 ml Benzocaine/Menthol (Cepacol Sore Throat) 1 lozenge MUCMEM Q1H PRN PRN Reason: Sore Throat Diphenhydramine HCl (Benadryl) 50 mg IVPUSH Q4H PRN PRN Reason: Itching Enoxaparin Sodium (Lovenox) 40 mg SUBCUT DAILY [facility] Last Admin: 03/09/19 09:00 Dose: 40 mg Hydromorphone HCl (Dilaudid Pen Rider 15 Mg In Ns 30 Ml) 0 mg IV ASDIRECTED PRN; Protocol PRN Reason: Pain Last Admin: 03/10/19 04:38 Dose: 15 mg Hydroxyzine HCl (Vistaril) 100 mg IM Q4H PRN PRN Reason: Nausea Last Admin: 03/08/19 18:37 Dose: 100 mg Sodium Chloride (Normal Saline) 1,000 mls @ 125 mls/hr IV ASDIRECTED [facility] Last Admin: 03/10/19 07:30 Dose: 125 mls/hr Meropenem 1 gm/ Sodium (Chloride) 50 mls @ 100 mls/hr IV Q8H [facility] Last Admin: 03/10/19 07:44 Dose: 100 mls/hr Naloxone HCl (Narcan) 0.1 mg IV ASDIRECTED PRN PRN Reason: decreased respiratory rate Scopolamine Patch (Check) 1 each TOP DAILY [facility] Last Admin: 03/09/19 09:17 Dose: Not Given Ondansetron HCl (Zofran) 4 mg IVPUSH Q4H PRN PRN Reason: Nausea/Vomiting Scopolamine (Transderm-Scop) 1.5 mg TOP Q72H [facility] Stop: 03/11/19 08:00 Last Admin: 03/08/19 09:36 Dose: 1.5 mg Discontinued Medications Bupivacaine HCl/Epinephrine Bitart (Marcaine 0.5%/Epinephrine 1:200,000) Confirm Administered Dose 50 ml .ROUTE .STK-MED ONE Stop: 03/08/19 17:17 Last Admin: 03/08/19 17:30 Dose: 40 ml Ropivacaine 53 ml/Dexamethasone 8 mg/Epinephrine HCl 0.4 mg/ Sodium Chloride 24.6 ml 0 ml NERVRT ASDIRECTED [facility] Last Admin: 03/08/19 17:26 Dose: 80 syringe Dexamethasone (Dexamethasone) Confirm Administered Dose 4 mg .ROUTE .STK-MED ONE Stop: 03/08/19 14:27 Fentanyl (Sublimaze) Confirm Administered Dose 250 mcg .ROUTE .STK-MED ONE Stop: 03/08/19 14:26 Fentanyl (Sublimaze) Confirm Administered Dose 250 mcg .ROUTE .STK-MED ONE Stop: 03/08/19 18:25 Glycopyrrolate (Robinul) Confirm Administered Dose 1 mg .ROUTE .STK-MED ONE Stop: 03/08/19 14:27 Lactated Ringer's (Ringers, Lactated) Confirm Administered Dose 1,000 mls @ as directed .ROUTE .STK-MED ONE Stop: 03/08/19 18:26 Sodium Chloride (Normal Saline) 250 mls @ 250 mls/hr IV ASDIRECTED [facility] Sodium Chloride (Normal Saline) 250 mls @ 250 mls/hr IV ONETIME ONE Stop: 03/08/19 21:59 Last Admin: 03/08/19 21:09 Dose: 250 mls/hr Sodium Chloride (Normal Saline) 1,000 mls @ 999 mls/hr IV .BOLUS ONE Stop: 03/09/19 00:10 Last Admin: 03/08/19 23:20 Dose: 999 mls/hr Iopamidol (Isovue-300 (61%)) 50 ml PO ASDIRECTED ONE Stop: 03/09/19 08:14 Last Admin: 03/09/19 08:56 Dose: 50 ml Ketorolac Tromethamine (Toradol) Confirm Administered Dose 60 mg .ROUTE .STK- MED ONE Stop: 03/08/19 18:35 Meropenem (Merrem) Confirm Administered Dose 500 mg .ROUTE .STK-MED ONE Stop: 03/08/19 17:17 Last Admin: 03/08/19 17:31 Dose: 500 mg Neostigmine Methylsulfate (Neostigmine) Confirm Administered Dose 5 mg .ROUTE .STK-MED ONE Stop: 03/08/19 14:27 Ondansetron HCl (Zofran) Confirm Administered Dose 4 mg .ROUTE .STK-MED ONE Stop: 03/08/19 14:27 Propofol (Diprivan 20 Ml) Confirm Administered Dose 200 mg .ROUTE .STK-MED ONE Stop: 03/08/19 14:27 Rocuronium [place] (Zemuron) Confirm Administered Dose 50 mg .ROUTE .STK-MED ONE Stop: 03/08/19 14:27 Rocuronium [place] (Zemuron) Confirm Administered Dose 50 mg .ROUTE .STK-MED ONE Stop: 03/08/19 17:27 Succinylcholine Chloride (Quelicin) Confirm Administered Dose 200 mg .ROUTE .STK -MED ONE Stop: 03/08/19 14:27 - Exam Wound/Incisions: Dressing Dry and Intact General: Alert, Oriented, Cooperative, No Acute Distress Lungs: Clear to Auscultation, Normal Respiratory Effort Cardiovascular: Regular Rate, Regular Rhythm GI/Abdominal Exam: Normal Bowel Sounds, Soft, Non-Tender Extremities: Normal Inspection Skin: Warm, Dry, Intact Neurological: No New Focal Deficit Psy/Mental Status: Alert, Normal Affect, Normal Mood - Problem List & Annotations (1) Status post gastric bypass for obesity SNOMED Code(s): 672668429, 903365503, 713666930, 682386982 Code(s): Z98.84 - BARIATRIC SURGERY STATUS Status: Acute Current Visit: No Annotation/Comment:: Removal of band - Problem List Review Problem List Initiated/Reviewed/Updated: Yes - My Orders Last 24 Hours: Active Orders 24 hr Category Date Time Status Transfer Patient (Change bed) [ADT] Routine ADT 03/10/19 09:48 Ordered DC Koehler Catheter [Urinary Catheter Removal] [RC] Per Care 03/10/19 09:50 Ordered Unit Routine Bariatric Diet [DIET] Diet 03/09/19 Lunch Active Bariatric Diet [DIET] Diet 03/10/19 Lunch Ordered Enoxaparin [Lovenox] Med 03/09/19 09:00 Active 40 mg SUBCUT DAILY Oral Care [OM.PC] BID Oth 03/09/19 18:15 Ordered Oral Care [OM.PC] BID Oth 03/09/19 18:45 Ordered Medication Orders Albuterol/Ipratropium (Duoneb 3.0-0.5 Mg/3 Ml) 3 ml NEB Q4H PRN PRN Reason: Shortness of Breath Last Admin: 03/10/19 04:49 Dose: 3 ml Admin: 03/10/19 00:38 Dose: 3 ml Admin: 07/18/19 23:21 Dose: 3 ml Benzocaine/Menthol (Cepacol Sore Throat) 1 lozenge MUCMEM Q1H PRN PRN Reason: Sore Throat Diphenhydramine HCl (Benadryl) 50 mg IVPUSH Q4H PRN PRN Reason: Itching Enoxaparin Sodium (Lovenox) 40 mg SUBCUT DAILY [facility] Last Admin: 03/09/19 09:00 Dose: 40 mg Hydromorphone HCl (Dilaudid Pen Rider 15 Mg In Ns 30 Ml) 0 mg IV ASDIRECTED PRN; Protocol PRN Reason: Pain Last Admin: 03/10/19 04:38 Dose: 15 mg Admin: 03/08/19 09:26 Dose: 15 mg Hydroxyzine HCl (Vistaril) 100 mg IM Q4H PRN PRN Reason: Nausea Last Admin: 03/08/19 18:37 Dose: 100 mg Sodium Chloride (Normal Saline) 1,000 mls @ 125 mls/hr IV ASDIRECTED [facility] Last Admin: 03/10/19 07:30 Dose: 125 mls/hr Infusion: 03/10/19 07:26 Dose: 125 mls/hr Admin: 03/09/19 23:26 Dose: 125 mls/hr Infusion: 03/09/19 23:26 Dose: 125 mls/hr Admin: 03/09/19 15:47 Dose: 125 mls/hr Infusion: 03/09/19 15:47 Dose: 125 mls/hr Admin: 03/09/19 08:55 Dose: 125 mls/hr Infusion: 03/09/19 08:14 Dose: 125 mls/hr Admin: 03/09/19 00:14 Dose: 125 mls/hr Infusion: 03/08/19 17:31 Dose: 125 mls/hr Admin: 03/08/19 09:31 Dose: 125 mls/hr Meropenem 1 gm/ Sodium (Chloride) 50 mls @ 100 mls/hr IV Q8H [facility] Last Admin: 03/10/19 07:44 Dose: 100 mls/hr Admin: 03/09/19 23:25 Dose: 100 mls/hr Admin: 03/09/19 15:48 Dose: 100 mls/hr Admin: 03/09/19 08:55 Dose: 100 mls/hr Admin: 03/08/19 22:31 Dose: 100 mls/hr Admin: 03/08/19 15:28 Dose: 100 mls/hr Naloxone HCl (Narcan) 0.1 mg IV ASDIRECTED PRN PRN Reason: decreased respiratory rate Scopolamine Patch (Check) 1 each TOP DAILY [facility] Last Admin: 03/09/19 09:17 Dose: Ondansetron HCl (Zofran) 4 mg IVPUSH Q4H PRN PRN Reason: Nausea/Vomiting Scopolamine (Transderm-Scop) 1.5 mg TOP Q72H [facility] Stop: 03/11/19 08:00 Last Admin: 03/08/19 09:36 Dose: 1.5 mg - Assessment Assessment (Free Text/Narrative):: Doing well. Tolerating Step 1 bariatric diet. No flatus. Good UOP. Moving air well. - Plan Plan (Free Text/Narrative):: Step 2 diet. D/C Zakia. Transfer to Med/surg floor.
[2019-03-10] MEDS: SCOPOLAMINE PATCH CHECK TOP SCH (12:00)
[2019-03-11] MEDS: SCOPOLAMINE PATCH CHECK TOP SCH (09:37)
[2019-03-11] MEDS: Enoxaparin 40 MG/0.4 ML Syringe SUBCUT SCH (09:37)
[2019-03-11] MEDS ORDERED: Furosemide 20 MG/2 ML VIAL IVPUSH ONE (09:54)
[2019-03-11] MEDS ORDERED: Simethicone 80 MG Tab.Chew PO PRN (09:57)
--- NOTE | 2019-03-11 10:03 | PCM.SURGPN ---
- General Info Date of Service: 03/11/19 Date of Surgery/Procedure: 03/08/19 POD#: 3 Post-Op Diagnosis: Leak Functional Status: Reports: Pain Controlled, Tolerating Diet, Ambulating, Urinating, Incentive Spirometry - Review of Systems General: Reports: No Symptoms HEENT: Reports: No Symptoms Pulmonary: Reports: No Symptoms Cardiovascular: Reports: No Symptoms Gastrointestinal: Reports: No Symptoms, Flatus Genitourinary: Reports: No Symptoms Musculoskeletal: Reports: No Symptoms Skin: Reports: No Symptoms Neurological: Reports: No Symptoms Psychiatric: Reports: No Symptoms - Patient Data Vitals - Most Recent: Last Vital Signs Temp 97.9 F 03/11/19 07:45 Pulse 68 03/11/19 07:45 Resp 16 03/11/19 07:45 BP 135/78 03/11/19 07:45 Pulse Ox 95 03/11/19 07:45 Weight - Most Recent: 238 lb I&O - Last 24 Hours: Intake & Output 03/10/19 03/11/19 03/11/19 22:59 06:59 14:59 Intake Total 530 500 290 Output Total 1080 980 500 Balance -550 -480 -210 Lab Results Last 24 Hrs: Laboratory Results - last 24 hr 03/11/19 03/11/19 Range/Units 05:22 05:22 WBC 11.1 H (4.5-11.0) K/uL RBC 3.40 (3.30-5.50) M/uL Hgb 10.2 L (12.0-15.0) g/dL Hct 33.6 L (36.0-48.0) % MCV 99 H (80-98) fL MCH 30 (27-31) pg MCHC 30 L (32-36) % Plt Count 265 (150-400) K/uL Sodium 142 (140-148) mmol/L Potassium 3.7 (3.6-5.2) mmol/L Chloride 106 (100-108) mmol/L Carbon Dioxide 30 (21-32) mmol/L Anion Gap 6.4 (5.0-14.0) mmol/L BUN 11 (7-18) mg/dL Creatinine 0.7 (0.6-1.0) mg/dL Est Cr Clr Drug Dosing 78.83 mL/min Estimated GFR (MDRD) > 60 (>60) Glucose 99 (74-106) mg/dL Calcium 8.0 L (8.5-10.1) mg/dL Med Orders - Current: Current Medications Acetaminophen (Tylenol) 650 mg PO Q4H PRN PRN Reason: Abdominal Pain Albuterol/Ipratropium (Duoneb 3.0-0.5 Mg/3 Ml) 3 ml NEB Q4H PRN PRN Reason: Shortness of Breath Last Admin: 03/10/19 04:49 Dose: 3 ml Benzocaine/Menthol (Cepacol Sore Throat) 1 lozenge MUCMEM Q1H PRN PRN Reason: Sore Throat Diphenhydramine HCl (Benadryl) 50 mg IVPUSH Q4H PRN PRN Reason: Itching Enoxaparin Sodium (Lovenox) 40 mg SUBCUT DAILY [facility] Last Admin: 03/11/19 09:37 Dose: 40 mg Furosemide (Lasix) 20 mg IVPUSH ONETIME ONE Stop: 03/11/19 09:55 Hydroxyzine HCl (Vistaril) 100 mg IM Q4H PRN PRN Reason: Nausea Last Admin: 03/08/19 18:37 Dose: 100 mg Sodium Chloride (Normal Saline) 1,000 mls @ 25 mls/hr IV ASDIRECTED [facility] Last Admin: 03/10/19 22:31 Dose: 125 mls/hr Meropenem 1 gm/ Sodium (Chloride) 50 mls @ 100 mls/hr IV Q8H [facility] Last Admin: 03/11/19 07:33 Dose: 100 mls/hr Naloxone HCl (Narcan) 0.1 mg IV ASDIRECTED PRN PRN Reason: decreased respiratory rate Scopolamine Patch (Check) 1 each TOP DAILY [facility] Last Admin: 03/11/19 09:37 Dose: Not Given Ondansetron HCl (Zofran) 4 mg IVPUSH Q4H PRN PRN Reason: Nausea/Vomiting Simethicone (Simethicone) 80 mg PO Q6H PRN PRN Reason: Bloating Discontinued Medications Bupivacaine HCl/Epinephrine Bitart (Marcaine 0.5%/Epinephrine 1:200,000) Confirm Administered Dose 50 ml .ROUTE .STK-MED ONE Stop: 03/08/19 17:17 Last Admin: 03/08/19 17:30 Dose: 40 ml Ropivacaine 53 ml/Dexamethasone 8 mg/Epinephrine HCl 0.4 mg/ Sodium Chloride 24.6 ml 0 ml NERVRT ASDIRECTED [facility] Last Admin: 03/08/19 17:26 Dose: 80 syringe Dexamethasone (Dexamethasone) Confirm Administered Dose 4 mg .ROUTE .STK-MED ONE Stop: 03/08/19 14:27 Fentanyl (Sublimaze) Confirm Administered Dose 250 mcg .ROUTE .STK-MED ONE Stop: 03/08/19 14:26 Fentanyl (Sublimaze) Confirm Administered Dose 250 mcg .ROUTE .STK-MED ONE Stop: 03/08/19 18:25 Glycopyrrolate (Robinul) Confirm Administered Dose 1 mg .ROUTE .STK-MED ONE Stop: 03/08/19 14:27 Hydromorphone HCl (Dilaudid Art[employer] Insemination Technician 15 Mg In Ns 30 Ml) 0 mg IV ASDIRECTED PRN; Protocol PRN Reason: Pain Last Admin: 03/10/19 04:38 Dose: 15 mg Lactated Ringer's (Ringers, Lactated) Confirm Administered Dose 1,000 mls @ as directed .ROUTE .STK-MED ONE Stop: 03/08/19 18:26 Sodium Chloride (Normal Saline) 250 mls @ 250 mls/hr IV ASDIRECTED [facility] Sodium Chloride (Normal Saline) 250 mls @ 250 mls/hr IV ONETIME ONE Stop: 03/08/19 21:59 Last Admin: 03/08/19 21:09 Dose: 250 mls/hr Sodium Chloride (Normal Saline) 1,000 mls @ 999 mls/hr IV .BOLUS ONE Stop: 03/09/19 00:10 Last Admin: 03/08/19 23:20 Dose: 999 mls/hr Iopamidol (Isovue-300 (61%)) 50 ml PO ASDIRECTED ONE Stop: 03/09/19 08:14 Last Admin: 03/09/19 08:56 Dose: 50 ml Ketorolac Tromethamine (Toradol) Confirm Administered Dose 60 mg .ROUTE .STK- MED ONE Stop: 03/08/19 18:35 Meropenem (Merrem) Confirm Administered Dose 500 mg .ROUTE .STK-MED ONE Stop: 03/08/19 17:17 Last Admin: 03/08/19 17:31 Dose: 500 mg Neostigmine Methylsulfate (Neostigmine) Confirm Administered Dose 5 mg .ROUTE .STK-MED ONE Stop: 03/08/19 14:27 Ondansetron HCl (Zofran) Confirm Administered Dose 4 mg .ROUTE .STK-MED ONE Stop: 03/08/19 14:27 Propofol (Diprivan 20 Ml) Confirm Administered Dose 200 mg .ROUTE .STK-MED ONE Stop: 03/08/19 14:27 Rocuronium [place] (Zemuron) Confirm Administered Dose 50 mg .ROUTE .STK-MED ONE Stop: 03/08/19 14:27 Rocuronium [place] (Zemuron) Confirm Administered Dose 50 mg .ROUTE .STK-MED ONE Stop: 03/08/19 17:27 Scopolamine (Transderm-Scop) 1.5 mg TOP Q72H [facility] Stop: 03/11/19 08:00 Last Admin: 03/08/19 09:36 Dose: 1.5 mg Succinylcholine Chloride (Quelicin) Confirm Administered Dose 200 mg .ROUTE .STK -MED ONE Stop: 03/08/19 14:27 - Exam Wound/Incisions: Dressing Dry and Intact Quality Assessment: Supplemental Oxygen, DVT Prophylaxis General: Alert, Oriented, Cooperative, No Acute Distress Lungs: Clear to Auscultation, Normal Respiratory Effort Cardiovascular: Regular Rate, Regular Rhythm GI/Abdominal Exam: Normal Bowel Sounds, Soft, Non-Tender Extremities: Normal Inspection Skin: Warm, Dry, Intact Psy/Mental Status: Alert, Normal Affect, Normal Mood - Problem List & Annotations (1) Status post gastric bypass for obesity SNOMED Code(s): 373493666, 007008417, 932008693, 585128406 Code(s): Z98.84 - BARIATRIC SURGERY STATUS Status: Acute Current Visit: No Annotation/Comment:: Removal of band - Problem List Review Problem List Initiated/Reviewed/Updated: Yes - My Orders Last 24 Hours: Active Orders 24 hr Category Date Time Status Transfer Patient (Change bed) [ADT] Routine ADT 03/10/19 09:48 Ordered Communication Order [RC] ROUTINE Care 03/11/19 09:59 Ordered Bariatric Diet [DIET] Diet 03/10/19 Lunch Active Acetaminophen [Tylenol] Med 03/11/19 09:55 Ordered 650 mg PO Q4H PRN Furosemide [Lasix] Med 03/11/19 09:54 Once 20 mg IVPUSH ONETIME ONE Simethicone Med 03/11/19 09:57 Ordered 80 mg PO Q6H PRN Medication Orders Acetaminophen (Tylenol) 650 mg PO Q4H PRN PRN Reason: Abdominal Pain Albuterol/Ipratropium (Duoneb 3.0-0.5 Mg/3 Ml) 3 ml NEB Q4H PRN PRN Reason: Shortness of Breath Last Admin: 03/10/19 04:49 Dose: 3 ml Admin: 03/10/19 00:38 Dose: 3 ml Admin: 03/08/19 23:21 Dose: 3 ml Benzocaine/Menthol (Cepacol Sore Throat) 1 lozenge MUCMEM Q1H PRN PRN Reason: Sore Throat Diphenhydramine HCl (Benadryl) 50 mg IVPUSH Q4H PRN PRN Reason: Itching Enoxaparin Sodium (Lovenox) 40 mg SUBCUT DAILY [facility] Last Admin: 03/11/19 09:37 Dose: 40 mg Admin: 03/10/19 09:51 Dose: 40 mg Admin: 03/09/19 09:00 Dose: 40 mg Furosemide (Lasix) 20 mg IVPUSH ONETIME ONE Stop: 03/11/19 09:55 Hydroxyzine HCl (Vistaril) 100 mg IM Q4H PRN PRN Reason: Nausea Last Admin: 03/08/19 18:37 Dose: 100 mg Sodium Chloride (Normal Saline) 1,000 mls @ 25 mls/hr IV ASDIRECTED [facility] Last Admin: 03/10/19 22:31 Dose: 125 mls/hr Infusion: 03/10/19 22:31 Dose: 125 mls/hr Admin: 03/10/19 15:21 Dose: 125 mls/hr Infusion: 03/10/19 15:21 Dose: 125 mls/hr Admin: 03/10/19 07:30 Dose: 125 mls/hr Infusion: 03/10/19 07:26 Dose: 125 mls/hr Admin: 03/09/19 23:26 Dose: 125 mls/hr Infusion: 03/09/19 23:26 Dose: 125 mls/hr Admin: 03/09/19 15:47 Dose: 125 mls/hr Infusion: 03/09/19 15:47 Dose: 125 mls/hr Admin: 03/09/19 08:55 Dose: 125 mls/hr Infusion: 03/09/19 08:14 Dose: 125 mls/hr Admin: 03/09/19 00:14 Dose: 125 mls/hr Infusion: 03/08/19 17:31 Dose: 125 mls/hr Admin: 03/08/19 09:31 Dose: 125 mls/hr Meropenem 1 gm/ Sodium (Chloride) 50 mls @ 100 mls/hr IV Q8H [facility] Last Admin: 03/11/19 07:33 Dose: 100 mls/hr Admin: 03/10/19 22:31 Dose: 100 mls/hr Admin: 03/10/19 15:21 Dose: 100 mls/hr Admin: 03/10/19 07:44 Dose: 100 mls/hr Admin: 03/09/19 23:25 Dose: 100 mls/hr Admin: 03/09/19 15:48 Dose: 100 mls/hr Admin: 03/09/19 08:55 Dose: 100 mls/hr Admin: 03/08/19 22:31 Dose: 100 mls/hr Admin: 03/08/19 15:28 Dose: 100 mls/hr Naloxone HCl (Narcan) 0.1 mg IV ASDIRECTED PRN PRN Reason: decreased respiratory rate Scopolamine Patch (Check) 1 each TOP DAILY [facility] Last Admin: 03/11/19 09:37 Dose: Admin: 03/10/19 12:00 Dose: Admin: 03/09/19 09:17 Dose: Ondansetron HCl (Zofran) 4 mg IVPUSH Q4H PRN PRN Reason: Nausea/Vomiting Simethicone (Simethicone) 80 mg PO Q6H PRN PRN Reason: Bloating - Assessment Assessment (Free Text/Narrative):: Needs oxygen, probably too much fluid. Passing gas. Tolerating diet. Labs reviewed. 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
[2019-03-11] MEDS: Acetaminophen Soln 650 MG/20.3 ML UD Cup PO PRN ×3 (10:48→19:55)
[2019-03-12] MEDS: Acetaminophen Soln 650 MG/20.3 ML UD Cup PO PRN ×4 (03:59→23:47)
[2019-03-12] MEDS: Enoxaparin 40 MG/0.4 ML Syringe SUBCUT SCH (08:20)
[2019-03-12] MEDS: SCOPOLAMINE PATCH CHECK TOP SCH (08:21)
[2019-03-12] MEDS: Potassium Chloride 20 MEQ, Lidocaine 1% 2 ML in Sodium Chloride 0.9% 100 ML IV SCH ×2 (12:34→16:42)
[2019-03-12] MEDS: Sodium Chloride 0.9% 1,000 ML IV SCH (16:49)
[2019-03-13] MEDS: SCOPOLAMINE PATCH CHECK TOP SCH (08:11)
[2019-03-13] MEDS: Acetaminophen Soln 650 MG/20.3 ML UD Cup PO PRN (08:15)
[2019-03-13] MEDS ORDERED: Cyanocobalamin (Vitamin B12) 1,000 MCG/ML SDV IM ONE (09:00)
[2019-03-13] MEDS: Enoxaparin 40 MG/0.4 ML Syringe SUBCUT SCH (11:46)
--- NOTE | 2019-03-13 13:40 | DISCH ---
ADMISSION DIAGNOSES: 1. Partial small bowel obstruction. 2. Status post Ruperto-en-Y gastric bypass surgery. 3. Unspecified surgical malabsorption. 4. B12 deficiency. 5. Hypertension. 6. Generalized anxiety disorder. DISCHARGE DIAGNOSES: 1. Diagnostic laparoscopy turned to laparotomy. 2. Revision of jejunojejunal anastomosis for typical postoperative adhesions secondary to recent laparoscopic Ruperto-en-Y gastric bypass surgery, jejunojejunal narrowing (complete narrowing approximately 50% of luminal volume remains). 3. Significant inflammation of the jejunojejunal anastomosis. 4. Small leak at the gastrointestinal contents of the jejunojejunal anastomosis. 5. No other gross abnormalities. Date of surgery: 03/08/2019. Surgeon: Yao Aleman MD. HISTORY: Aiyana Ortiz is a 58-year-old female who had a Ruperto-en-Y gastric bypass surgery and removal of laparoscopic gastric band system 3 days prior to admission. She was discharged on 03/07/2019 and that evening developed severe abdominal pain. She went to the ER and was transferred to [facility] with a high-grade bowel obstruction. After preoperative evaluation and discussion of possible risks and possible complications, she wished to proceed with surgical procedure. HOSPITAL COURSE: On 03/08/2019, Dr. Yao Aleman performed the above procedure. On postoperative day #1, her upper GI was normal, she was started on clear liquids. Pain was controlled with CONSTRUCTION MATERIALS TESTER. She also had some atelectasis/pneumonia and was started on meropenem. She was in ICU until her saturations improved and transferred to Dr. Gonzalo Chadwick. On 03/10/2019, her pain was controlled, tolerating diet, ambulating. She remained to have her Koehler catheter in and her output was adequate, so this was removed and she was transferred to the med/surg floor. On 03/11/2019, she continued to improve, oral intake was adequate, pain was controlled, and she was ambulating. She did continue to have some oxygen thinking it was secondary to fluid overload and she was given IV Lasix. CONSTRUCTION MATERIALS TESTER was discontinued, and she was given Tylenol and simethicone. She did have a bowel movement that day. On 03/12/2019, her care was transferred to Erlin Lala MD's service. Potassium was replaced, 40 mEq IV. On 03/13/2019, she was able to be discharged to home without any complications. PHYSICAL EXAMINATION: GENERAL: Aiyana Ortiz is a pleasant 58-year-old female. VITAL SIGNS: Height is 5 feet 5 inches, weight is 238 pounds, BMI is 39. TPR 97.6, 77, 16, blood pressure 141/74. HEENT: Negative. NECK: Supple. HEART: Regular rate and rhythm. LUNGS: Clear. ABDOMEN: Gricelda intact. Three DAKSHA drains were removed and 4x4s placed over the DAKSHA drain sites. Abdominal binder is on. EXTREMITIES: Without peripheral edema. DISPOSITION: Discharged to home. CONDITION: Stable and improving. FOLLOWUP: Followup appointment with Vivian Haley PA-C, 03/26/2019 at 10 a.m. HOME MEDICATIONS: 1. Tylenol 650 mg q.4 hours p.r.n. pain. 2. Dilaudid 2 mg q.6 hours p.r.n. pain, #28. To resume home medication: 1. Aspirin 81 mg daily. 2. Celebrex 200 mg oral daily. 3. Chlorthalidone 12.5 mg oral daily. 4. Fluoxetine 10 mg oral daily. 5. Claritin-D one tablet oral daily. 6. Milk of Mag take p.r.n. 7. Zofran ODT 4 mg every 6 hours p.r.n. nausea. 8. Lipitor 20 mg oral daily. 9. Trazodone 25 mg at bedtime. DIET: Step 2 gastric bypass diet with no cereal. Drink 8 to 10 glasses of water a day. ACTIVITY: No lifting greater than 10 pounds for 6 weeks. Driving after discharge; do not drive for 1 week and while on narcotic pain medication. Shower/bathing: May shower. DISCHARGE INSTRUCTIONS: Notify provider if any fever, increased pain, nausea, vomiting. Keep site clean and dry. Use incentive spirometer 10 times every hour while awake.
--- NOTE | 2019-03-15 09:29 | PN ---
DATE OF SERVICE: 03/12/2019 SUBJECTIVE: Pain is well controlled. No nausea, vomiting, shortness of breath, or chest pain. OBJECTIVE: VITAL SIGNS: Stable. She is afebrile. CARDIOVASCULAR: Regular rhythm and rate. RESPIRATORY: Lungs are clear to auscultation bilaterally. ABDOMEN: Incision is healing well. The patient is having bowel movements. ASSESSMENT AND PLAN: The patient will be scheduled for discharge soon. Yao Aleman MD /[id number]
== END 2019-03-13 13:45 | disposition home or self-care (01) | DRG 329 ==
LOC: JP.MS 08:27 → JP.ICU 19:23 → JP.MS 03-10 13:24
PROVIDERS: ADMIT Surgery; ATTEND Surgery
PROC: 0DBA0ZZ Excision of Jejunum, Open Approach (ICD-10-PCS; principal; 2019-03-08)
PROC: 0DQA0ZZ Repair Jejunum, Open Approach (ICD-10-PCS; 2019-03-08)
PROC: 0DJD4ZZ Inspection of Lower Intestinal Tract, Percutaneous Endoscopic Approach (ICD-10-PCS; 2019-03-08)
DX: K56.51 Intestinal adhesions [bands], with partial obstruction (principal); K63.1 Perforation of intestine (nontraumatic); J18.9 Pneumonia, unspecified organism; K91.89 Other postprocedural complications and disorders of digestive system; K91.2 Postsurgical malabsorption, not elsewhere classified; Z53.31 Laparoscopic surgical procedure converted to open procedure; K52.9 Noninfective gastroenteritis and colitis, unspecified; I10 Essential (primary) hypertension; E78.5 Hyperlipidemia, unspecified; G47.00 Insomnia, unspecified; R12 Heartburn; Z86.010 Personal history of colon polyps; Z86.718 Personal history of other venous thrombosis and embolism; Z90.710 Acquired absence of both cervix and uterus; Z98.84 Bariatric surgery status; Z98.0 Intestinal bypass and anastomosis status; F41.1 Generalized anxiety disorder; E53.8 Deficiency of other specified B group vitamins; Z79.82 Long term (current) use of aspirin
CPT/HCPCS: 36415; 71045; 71046; 74240; 80048; 85025; 85027; 88307; 94640; 94762; A9270-GY; J0171; J0330; J1100; J1170; J1650; J1885; J1940; J2001; J2185; J2405; J2704; J2710; J2795; J3010; J3410; J3420; J3480; J3490; J7030; J7050; J7120; J7620-GY; Q9967

== ENCOUNTER 2019-03-19 15:01 | Inpatient (IN) | payer OTHER ==
[2019-03-19] MEDS ORDERED: Acetaminophen 325 MG Tab PO PRN (15:15)
[2019-03-19] MEDS ORDERED: Acetaminophen 650 MG Supp RECTAL PRN (15:15)
[2019-03-19] MEDS ORDERED: Sodium Chloride 0.9% 10 ML Syringe FLUSH PRN (15:45)
[2019-03-19] MEDS ORDERED: Iohexol 647 MG/ML 10 ML SDV PO SCH (15:45)
[2019-03-19] MEDS ORDERED: Iopamidol 612 MG/ML 200 ML Bottle IV SCH (15:45)
[2019-03-19] MEDS: Dextrose 5%-Lactated Ringers 1,000 ML IV SCH (16:51)
[2019-03-19] MEDS: Pantoprazole 40 MG Vial IV SCH (17:07)
[2019-03-19] MEDS: Meropenem 500 MG in Sodium Chloride 0.9% 50 ML IV SCH ×2 (17:11→23:41)
--- NOTE | 2019-03-19 17:11 | CRLCT ---
INDICATION: Gastric bypass on 03/05/2019. Evaluate for enterocutaneous fistula. TECHNIQUE: Volumetric helical scanning of the abdomen and pelvis was performed with oral contrast material and 150 cc of Isovue-300 contrast material IV. Coronal and sagittal reconstructions were obtained. COMPARISON: Abdomen/pelvis CT of 03/08/2019. FINDINGS: A small-bowel resection appears to been performed in the interval. Postop changes of gastric bypass are again demonstrated. The stomach and small bowel proximal to mid abdominal small bowel staple lines are distended and contain air-fluid levels. Beyond these staple lines, the bowel is normal in caliber. Air in fluid is present in the abdominal wall incision. An obvious enterocutaneous fistula is not identified. No free fluid or free air is identified. Sigmoid diverticulosis is noted. The liver is normal in size, shape and attenuation. No bile duct dilation is evident. The spleen is within normal limits. The adrenal glands are unremarkable. The pancreas is within normal limits. The kidneys are unremarkable. No lymphadenopathy is evident. Postop changes of total abdominal hysterectomy are demonstrated. The lung bases are clear. The heart is normal in size. IMPRESSION: 1. Interval small bowel resection with stomach and small bowel proximal to the staple lines distended and with air and fluid. Ileus versus partial obstruction. 2. Fluid and air in the midline incision but no obvious enterocutaneous fistula. 3. Post gastric bypass. 4. Sigmoid diverticulosis. 5. Post total abdominal hysterectomy. Please note that all CT scans at this facility use dose modulation, iterative reconstruction, and/or weight-based dosing when appropriate to reduce radiation dose to as low as reasonably achievable. Dictated by Aubrey Jacob MD @ Mar 19 2019 4:59PM Signed by Dr. Aubrey Jacob @ Mar 19 2019 5:09PM
[2019-03-19] MEDS ORDERED: traZODone 50 MG Tab PO SCH (21:00)
[2019-03-20] MEDS: Dextrose 5%-Lactated Ringers 1,000 ML IV SCH ×2 (04:05→17:25)
[2019-03-20] MEDS: Meropenem 500 MG in Sodium Chloride 0.9% 50 ML IV SCH ×4 (04:05→22:33)
[2019-03-20] MEDS ORDERED: Ketamine 500 MG/5 ML MDV IV SCH ×2 (07:30)
[2019-03-20] MEDS ORDERED: Enoxaparin 40 MG/0.4 ML Syringe SUBCUT ONE (07:30)
[2019-03-20] MEDS ORDERED: Mineral Oil/Petrolatum/Phenylephrine/Shark Liver Oil Oint 57 GM Tube RECTAL PRN (07:32)
[2019-03-20] MEDS ORDERED: Rocuronium 50 MG/5 ML Vial ONE ×2 (07:55→14:17)
[2019-03-20] MEDS ORDERED: fentaNYL 250 MCG/5 ML SDV ONE ×2 (07:55→14:18)
[2019-03-20] MEDS ORDERED: Propofol 200 MG/20 ML SDV ONE (07:55)
[2019-03-20] MEDS ORDERED: Dexamethasone 4 MG/ML SDV ONE (07:55)
[2019-03-20] MEDS ORDERED: Succinylcholine 200 MG/10 ML MDV ONE (07:55)
[2019-03-20] MEDS ORDERED: Neostigmine Methylsulfate 1 MG/ML 5 ML Syringe ONE (07:55)
[2019-03-20] MEDS ORDERED: Ondansetron 4 MG/2 ML SDV ONE (07:55)
[2019-03-20] MEDS ORDERED: Glycopyrrolate 0.2 MG/ML 5 ML MDV ONE (07:55)
--- NOTE | 2019-03-20 09:24 | PN ---
DATE OF SERVICE: 03/20/2019 SUBJECTIVE: Aiyana is n.p.o. She will be having exploratory laparotomy, drainage of intra- abdominal abscess with possible small bowel obstruction, TAP block, general anesthesia, ketamine bolus and infusion. Case to follow today, Tuesday03/20/2019. Surgeon, Erlin Lala MD. Aiyana continues to have a light brown drainage of her incision that was a total of 35 mL and an ostomy bag of light pro to light brown foul-smelling drainage. She has been up ambulating. Urine output is 1100. CT scan was reviewed. Labs revealed a white count of 11.6, hemoglobin 10.8, magnesium 1.7, albumin is 2.1. Pain is on a pain scale of 1 to 10, a 1/10. REVIEW OF SYSTEMS: Remainder of review of systems negative for any pertinent positives and negatives. OBJECTIVE: GENERAL: Aiyana Ortiz is a pleasant 58-year-old female. She is alert and oriented. Color, pale. SKIN: Warm and dry. VITAL SIGNS: TPR 97.6, 78, 16. Blood pressure 104/62. HEENT: Negative. NECK: Supple. HEART: Regular rate and rhythm. LUNGS: Clear. ABDOMEN: Ostomy bag is on. Florien intact. Minimal tenderness. Slight distention. EXTREMITIES: Without peripheral edema. SCDs are on. 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 PLAN: 1. Exploratory laparotomy with drainage of intra-abdominal abscess, possible small bowel resection. 2. Remain n.p.o., Lovenox 40 subcu given. 3. Note put on chart for anticoagulation therapy postoperatively. 4. Preparation H, use as directed p.r.n. hemorrhoid pain. 5. Hydrocortisone 1% cream, use p.r.n. rash on buttocks. 6. Good pulmonary toilet, incentive spirometer. 7. Magnesium 2 g IV q.6 hours x72 hours to start postoperatively. 8. We will evaluate p.r.n. or in a.m. Vivian Haley PA-C /[id number]
[2019-03-20] MEDS: Chlorthalidone 25 MG Tab PO SCH (09:41)
[2019-03-20] MEDS ORDERED: Ropivacaine 50 ML, dexAMETHasone 8 MG, EPINEPHrine 0.4 MG, Sodium Chloride 0.9% 27.6 ML NERVRT SCH ×4 (11:00)
[2019-03-20] MEDS ORDERED: Ketamine 50 MG in Sodium Chloride 0.9% 49.5 ML IV SCH (11:00)
[2019-03-20] MEDS ORDERED: Meropenem 500 MG SDV ONE (12:14)
[2019-03-20] MEDS ORDERED: Lactated Ringers 1,000 ML ONE ×2 (13:10→14:45)
[2019-03-20] MEDS ORDERED: Linezolid 600 MG in Premix Bag 1 BAG IV ONE (14:05)
[2019-03-20] MEDS ORDERED: Meropenem 500 MG SDV IRR ONE (14:11)
[2019-03-20] MEDS ORDERED: Albuterol/Ipratropium 3.0-0.5 MG/3 ML Neb Soln INH PRN (17:19)
[2019-03-20] MEDS ORDERED: hydrOXYzine HCl 100 MG/2 ML SDV IM PRN (17:24)
[2019-03-20] MEDS ORDERED: Ondansetron 4 MG/2 ML SDV IVPUSH PRN (17:24)
[2019-03-20] MEDS ORDERED: diphenhydrAMINE 50 MG/ML SDV IVPUSH PRN (17:24)
[2019-03-20] MEDS ORDERED: Labetalol 20 MG/4 ML Syringe IVPUSH PRN (17:24)
[2019-03-20] MEDS ORDERED: Metoclopramide 10 MG/2 ML SDV IVPUSH PRN (17:24)
[2019-03-20] MEDS: FLUoxetine 10 MG Cap PO SCH (17:26)
[2019-03-20] MEDS: Pantoprazole 40 MG Vial IV SCH (17:26)
[2019-03-20] MEDS ORDERED: HYDROmorphone/Normal Saline 15 MG/30 ML PCA IV PRN (17:27)
[2019-03-20] MEDS ORDERED: Naloxone 0.4 MG/ML SDV IV PRN (17:27)
[2019-03-20] MEDS: Enoxaparin 60 MG/0.6 ML Syringe SUBCUT SCH (17:38)
[2019-03-20] MEDS ORDERED: Magnesium Sulfate/Water 2 GM in Premix Bag 1 BAG IV SCH (18:00)
[2019-03-20] MEDS: MVI, Adult with Vitamin K 10 ML, Thiamine 200 MG, Chromium/Copper/Mang/Selen/Zn 1 ML in... IV SCH ×4 (18:15)
[2019-03-20] MEDS: Acetaminophen 325 MG Tab PO SCH (19:57)
[2019-03-20] MEDS: Hydrocortisone 1% Crm 30 GM Tube TOP PRN (22:57)
[2019-03-21] MEDS: Acetaminophen 325 MG Tab PO SCH ×4 (02:36→20:00)
[2019-03-21] MEDS: Dextrose 5%-Lactated Ringers 1,000 ML IV SCH ×2 (02:47→05:40)
[2019-03-21] MEDS: Meropenem 500 MG in Sodium Chloride 0.9% 50 ML IV SCH ×4 (05:37→22:58)
[2019-03-21] MEDS: Enoxaparin 60 MG/0.6 ML Syringe SUBCUT SCH ×2 (05:37→18:05)
[2019-03-21] MEDS ORDERED: Dextrose 5%-Lactated Ringers 1,000 ML IV SCH (07:46)
--- NOTE | 2019-03-21 08:54 | PN ---
DATE OF SERVICE: 03/21/2019 SUBJECTIVE: Aiyana is alert and orientated. She is lying in bed. Questions were answered. Her pain is controlled. Vital signs stable. She has been ambulating three times. Oral intake; ice chips of 80 mL. Urine output via Koehler catheter is 962. REVIEW OF SYSTEMS: Remainder of review of systems negative for any pertinent positives and negatives. OBJECTIVE: GENERAL: Aiyana Ortiz is a 58-year-old female, in no acute distress. VITAL SIGNS: TPR is 96.5, 57, 16, blood pressure 115/70. HEENT: Negative. NECK: Supple. HEART: Regular rate and rhythm. LUNGS: Clear. ABDOMEN: Dressing dry and intact. Abdominal binder is on. EXTREMITIES: Without peripheral edema. ASSESSMENT: Exploratory laparotomy with lysis of extensive adhesions. 1. Drainage of intraabdominal abscess extending into subcutaneous abscess. 2. Closure of enterocutaneous fistula. 3. Enterostomy to bypass obstructed biliopancreatic small bowel. 4. Debridement of abdominal wall focal necrosis for extensive intraabdominal adhesions, intraabdominal abscess extending into subcutaneous abscess, enterocutaneous fistula, obstructive biliopancreatic limb at the jejunojejunostomy, and focal abdominal fascial necrosis. Date of surgery: 03/20/2019. Surgeon: Erlin Lala MD. PLAN: 1. Decrease IV to 100 mL per hour. 2. Discontinue Koehler catheter in a.m. 03/22/2019 at 0500. 3. Dressing changes b.i.d. May shower before dressing changes. Pack open wound with approximately six dry 4x4s and Cover and place ABD over the top of that. 4. Continue sips of clear liquid and ice chips. 5. Magnesium 2 g IV q.6 hours x48 hours. 6. Good pulmonary toilet. 7. We will evaluate p.r.n. or in a.m. Vivian Haley PA-C /[id number]
[2019-03-21] MEDS: Chlorthalidone 25 MG Tab PO SCH (09:24)
[2019-03-21] MEDS: Hydrocortisone 1% Crm 30 GM Tube TOP PRN (09:25)
[2019-03-21] MEDS: Magnesium Sulfate/Water 2 GM in Premix Bag 1 BAG IV SCH ×3 (09:25→20:01)
[2019-03-21] MEDS: FLUoxetine 10 MG Cap PO SCH (09:31)
[2019-03-21] MEDS: MVI, Adult with Vitamin K 10 ML, Thiamine 200 MG, Chromium/Copper/Mang/Selen/Zn 1 ML in... IV SCH ×8 (14:13→17:21)
[2019-03-21] MEDS: Pantoprazole 40 MG Vial IV SCH (18:05)
[2019-03-21] MEDS: traZODone 50 MG Tab PO SCH (21:41)
[2019-03-22] MEDS: Magnesium Sulfate/Water 2 GM in Premix Bag 1 BAG IV SCH ×4 (02:34→20:31)
[2019-03-22] MEDS: Acetaminophen 325 MG Tab PO SCH ×4 (02:35→20:30)
[2019-03-22] MEDS ORDERED: Iopamidol 612 MG/ML 50 ML SDV PO ONE (03:05)
--- NOTE | 2019-03-22 05:05 | CRLCR ---
Indication: Ruperto-en-Y gastric bypass. Technique: Abdomen 3 view Comparison: Upper gastrointestinal exam 03/09/2019 Findings/Impression: Three submitted images. On the 1st image contrast fills proximal small bowel as well as a small amount of residual contrast within the colon. Suture lines are noted throughout the abdomen. On the 2nd image there is progressive filling of the small bowel as well as filling of a somewhat irregular loop of bowel within the left mid abdomen. There is progressive contrast within this loop on the 3rd image. No clear extraluminal contrast extension. Dictated by Nikolay Escalante MD @ Mar 22 2019 4:59AM Signed by Dr. Nikolay Escalante @ Mar 22 2019 5:04AM
[2019-03-22] MEDS: Enoxaparin 60 MG/0.6 ML Syringe SUBCUT SCH ×2 (05:44→17:20)
[2019-03-22] MEDS: Meropenem 500 MG in Sodium Chloride 0.9% 50 ML IV SCH ×4 (05:44→22:33)
[2019-03-22] MEDS ORDERED: Dextrose 5%-Lactated Ringers 1,000 ML IV SCH (07:46)
--- NOTE | 2019-03-22 08:01 | PN ---
DATE OF SERVICE: 03/22/2019 SUBJECTIVE: Aiyana is postoperative day #2. Her upper GI this morning was normal. Her Koehler was discontinued at 0500 hours. She has not voided yet. Vital signs have been stable. She has been afebrile, up ambulating. Pain has been controlled using the RECYCLING CREW SUPERVISOR. Dressings have been changed twice daily. REVIEW OF SYSTEMS: Remainder of review of systems negative for any pertinent positives and negatives. OBJECTIVE: GENERAL: Aiyana Ortiz is a pleasant 58-year-old female. She is alert and orientated. Color pale. VITAL SIGNS: TPR 97, 62, 16, blood pressure 91/61. HEENT: Negative. NECK: Supple. HEART: Regular rate and rhythm. LUNGS: Clear. ABDOMEN: Dressings dry and intact. Abdominal binder is on. EXTREMITIES: Without peripheral edema. ASSESSMENT: Exploratory laparotomy with lysis of extensive adhesions: 1. Drainage of intraabdominal abscess extending into subcutaneous abscess. 2. Closure of enterocutaneous fistula. 3. Enterostomy to bypass obstructed biliopancreatic small bowel. 4. Debridement of abdominal wall focal necrosis for extensive intraabdominal adhesions, intraabdominal abscess extending into the subcutaneous abscess, enterocutaneous fistula, obstructed biliopancreatic limb at the jejunojejunostomy and focal abdominal fascial necrosis. Date of surgery 03/20/2019. Surgeon, Erlin Lala MD. PLAN: 1. Step 2 gastric bypass diet without cereal, protein supplements q.i.d. and at bedtime. 2. Check CBC, CMP, and phos in a.m. 3. Dulcolax tablets 10 mg p.o. b.i.d. until bowel movement. 4. Decrease IV to 60 mL per hour. 5. Check culture and sensitivity daily and change antibiotics accordingly when they return. 6. We will evaluate p.r.n. or in a.m. Vivian Haley PA-C /[id number]
[2019-03-22] MEDS ORDERED: Cyanocobalamin (Vitamin B12) 1,000 MCG/ML SDV IM ONE (09:00)
[2019-03-22] MEDS: Bisacodyl 5 MG Tab PO SCH ×2 (10:14→22:09)
[2019-03-22] MEDS: Chlorthalidone 25 MG Tab PO SCH (10:14)
[2019-03-22] MEDS: FLUoxetine 10 MG Cap PO SCH (10:14)
[2019-03-22] MEDS: MVI, Adult with Vitamin K 10 ML, Thiamine 200 MG, Chromium/Copper/Mang/Selen/Zn 1 ML in... IV SCH ×4 (16:30)
[2019-03-22] MEDS: Pantoprazole 40 MG Vial IV SCH (16:30)
[2019-03-22] MEDS: traZODone 50 MG Tab PO SCH (21:44)
[2019-03-23] MEDS: Acetaminophen 325 MG Tab PO SCH ×4 (02:36→20:20)
[2019-03-23] MEDS: Magnesium Sulfate/Water 2 GM in Premix Bag 1 BAG IV SCH ×4 (02:36→20:20)
[2019-03-23] MEDS: Meropenem 500 MG in Sodium Chloride 0.9% 50 ML IV SCH ×4 (04:33→22:25)
[2019-03-23] MEDS: Enoxaparin 60 MG/0.6 ML Syringe SUBCUT SCH ×2 (05:12→17:37)
[2019-03-23] MEDS ORDERED: Dextrose 5%-Lactated Ringers 1,000 ML IV SCH (07:46)
--- NOTE | 2019-03-23 09:07 | PN ---
DATE OF SERVICE: 03/23/2019 SUBJECTIVE: Aiyana had a large bowel movement this morning. Pain has been controlled. Oral intake 1110. Urine output 2049. She has been consuming 100% of her Step 2 diet with no cereal. REVIEW OF SYSTEMS: Remainder of review of systems negative for any pertinent positives and negatives. OBJECTIVE: GENERAL: Aiyana Ortiz is a pleasant 58-year-old female. VITAL SIGNS: TPR is 96, 65, 16. Blood pressure 112/69. HEENT: Negative. NECK: Supple. HEART: Regular rate and rhythm. LUNGS: Clear. ABDOMEN: Open incision is granulating in. They are using two 4x4s and laying one on top with an ABD, twice daily changes. Abdominal binder is on. EXTREMITIES: SCDs are on and no peripheral edema. ASSESSMENT: Exploratory laparotomy with lysis of extensive adhesions. 1. Drainage of intraabdominal abscess extending into subcutaneous tissue. 2. Closure of enterocutaneous fistula. 3. Enterostomy to bypass obstructed biliopancreatic limb, small bowel. 4. Debridement of abdominal wall focal necrosis. POSTOPERATIVE DIAGNOSES: 1. Extensive intraabdominal adhesions. 2. Intraabdominal abscess extending into the subcutaneous tissues. 3. Enterocutaneous fistula. 4. Obstructive biliopancreatic limb at the jejunojejunostomy. 5. Focal abdominal necrosis. Date of surgery 03/20/2019. Surgeon, Erlin Lala MD. PLAN: 1. Change Dulcolax tablets p.o. one daily. 2. Decrease IV to keep vein open. 3. Good pulmonary toilet. 4. We will evaluate p.r.n. or in a.m. Vivian Haley PA-C /[id number]
[2019-03-23] MEDS: Bisacodyl 5 MG Tab PO SCH (09:32)
[2019-03-23] MEDS: FLUoxetine 10 MG Cap PO SCH (09:33)
[2019-03-23] MEDS: Chlorthalidone 25 MG Tab PO SCH (09:33)
[2019-03-23] MEDS: Hydrocortisone 1% Crm 30 GM Tube TOP PRN (10:00)
[2019-03-23] MEDS ORDERED: Pantoprazole 40 MG Tab.CR PO SCH (16:30)
[2019-03-23] MEDS: Pantoprazole 40 MG Delayed-Release Granules 1 Packet PO SCH (17:37)
[2019-03-23] MEDS: traZODone 50 MG Tab PO SCH (20:21)
[2019-03-24] MEDS: Acetaminophen 325 MG Tab PO SCH ×4 (01:11→20:22)
[2019-03-24] MEDS: Enoxaparin 60 MG/0.6 ML Syringe SUBCUT SCH ×2 (05:30→19:08)
[2019-03-24] MEDS: Meropenem 500 MG in Sodium Chloride 0.9% 50 ML IV SCH ×4 (05:31→22:54)
[2019-03-24] MEDS: Magnesium Sulfate/Water 2 GM in Premix Bag 1 BAG IV SCH (05:33)
[2019-03-24] MEDS ORDERED: HYDROmorphone 2 MG Tab PO PRN (07:10)
--- NOTE | 2019-03-24 08:17 | PN ---
DATE OF SERVICE: 03/24/2019 SUBJECTIVE: Aiyana reports her pain is controlled. She used 1 bump of the Dilaudid [employer] yesterday. Oral intake 1340 and urine output 4650. She has had no dysphagia. Pain is controlled with Tylenol, up ambulating and sitting in the chair. REVIEW OF SYSTEMS: Remainder of review of systems negative for any pertinent positives and negatives. OBJECTIVE: GENERAL: Aiyana Ortiz is a pleasant 58-year-old female. VITAL SIGNS: TPR is 98, 84, 18. Blood pressure is 127/82. O2 saturation by pulse oximetry 93% at 2 L of O2. HEENT: Negative. NECK: Supple. HEART: Regular rate and rhythm. LUNGS: Clear. ABDOMEN: Soft, minimally tender which would be expected. Incision negative. Abdominal binder is on. EXTREMITIES: Without peripheral edema. ASSESSMENT: Exploratory laparotomy with lysis of extensive adhesions: 1. Drainage of intraabdominal abscess extending into subcutaneous tissue. 2. Closure of enterocutaneous fistula. 3. Enterostomy to bypass obstructive biliopancreatic limb small bowel. 4. Debridement of abdominal wall focal necrosis. Postoperative diagnoses: 1. Extensive intraabdominal adhesions. 2. Intraabdominal abscess extending into the subcutaneous tissue. 3. Enterocutaneous fistula. 4. Obstructive biliopancreatic limb at the jejunojejunostomy. 5. Focal abdominal necrosis. Date of surgery 03/20/2019. Surgeon, Erlin Lala MD. PLAN: 1. Continue IV at TKO. 2. Continue vitamin bag at TKO. 3. Discontinue [employer]. 4. Dilaudid 2 mg q.6 hours orally p.r.n. pain. 5. Good pulmonary toilet. 6. We will evaluate p.r.n. or in a.m. Vivian Haley PA-C /[id number]
[2019-03-24] MEDS: Chlorthalidone 25 MG Tab PO SCH (09:26)
[2019-03-24] MEDS: Bisacodyl 5 MG Tab PO SCH (09:26)
[2019-03-24] MEDS: FLUoxetine 10 MG Cap PO SCH (09:26)
[2019-03-24] MEDS: MVI, Adult with Vitamin K 10 ML, Thiamine 200 MG, Chromium/Copper/Mang/Selen/Zn 1 ML in... IV SCH ×4 (16:16)
[2019-03-24] MEDS: Pantoprazole 40 MG Delayed-Release Granules 1 Packet PO SCH (16:20)
[2019-03-24] MEDS: Calcium Carbonate 500 MG Tab.Chew PO PRN ×2 (20:21→22:54)
[2019-03-24] MEDS: traZODone 50 MG Tab PO SCH (20:22)
[2019-03-25] MEDS: Acetaminophen 325 MG Tab PO SCH ×4 (02:00→19:31)
[2019-03-25] MEDS: Meropenem 500 MG in Sodium Chloride 0.9% 50 ML IV SCH ×4 (05:55→22:01)
[2019-03-25] MEDS: Enoxaparin 60 MG/0.6 ML Syringe SUBCUT SCH ×2 (05:55→17:01)
[2019-03-25] MEDS: Pantoprazole 40 MG Tab.CR PO SCH ×2 (07:54→17:02)
[2019-03-25] MEDS: FLUoxetine 10 MG Cap PO SCH (08:18)
[2019-03-25] MEDS: Chlorthalidone 25 MG Tab PO SCH (08:18)
[2019-03-25] MEDS: Bisacodyl 5 MG Tab PO SCH (08:19)
--- NOTE | 2019-03-25 09:16 | PN ---
DATE OF SERVICE: 03/25/2019 SUBJECTIVE: Aiyana's vital signs have been stable. She has reported some heartburn. No wet gastroesophageal reflux disease, but a feeling of heartburn. She was started on Tums yesterday along with her Protonix granules. She thinks it is after she takes the crushed Tylenol. She did not take that last night and the heartburn did resolve. No nausea. Vital signs have been stable. Up ambulating. Oral intake 920, urine output 3600. REVIEW OF SYSTEMS: Remainder of review of systems negative for any pertinent positives and negatives. OBJECTIVE: GENERAL: Aiyana Ortiz is a pleasant 58-year-old female. VITAL SIGNS: TPR is 97.3, 69, 16, blood pressure is 142/84. HEENT: Negative. NECK: Supple. HEART: Regular rate and rhythm. LUNGS: Clear. ABDOMEN: Incision is open, examined today with nurse. She does have 3 areas that are light pro to yellow color which is tissue that just is sloughing away. Otherwise, it looks nice, pink, and healing well. No signs of infection. This has been packed twice daily with abdominal binder. EXTREMITIES: Without peripheral edema. ASSESSMENT: Exploratory laparotomy with lysis of extensive adhesions. 1. Drainage of intraabdominal abscess extending into subcutaneous tissue. 2. Closure of enterocutaneous fistula. 3. Enterostomy to bypass obstructive biliopancreatic small bowel. 4. Debridement of abdominal wall focal necrosis. POSTOPERATIVE DIAGNOSES: 1. Extensive intra-abdominal adhesion. 2. Intraabdominal abscess extending into the subcutaneous tissue. 3. Enterocutaneous fistula. 4. Obstructive biliopancreatic limb of the jejunojejunostomy. 5. Focal abdominal necrosis. 6. Date of surgery: 03/20/2019. Surgeon: Erlin Lala MD. PLAN: 1. Sit up 20 to 30 minutes after taking medications or eating. 2. Dietary supplements, protein drinks q.i.d. 3. Discontinue Protonix granules. 4. Protonix 40 mg p.o. b.i.d. 5. Communication order: To drink 3 med cups 3 times every hour or one every 20 minutes, to avoid taking in too much liquid at one time. 6. Plan discharge in a.m. 7. Check CBC, CMP, mag, phos in a.m. Vivian Haley PA-C /[id number]
[2019-03-25] MEDS: Calcium Carbonate 500 MG Tab.Chew PO PRN ×3 (11:25→19:32)
[2019-03-25] MEDS: MVI, Adult with Vitamin K 10 ML, Thiamine 200 MG, Chromium/Copper/Mang/Selen/Zn 1 ML in... IV SCH ×4 (16:59)
[2019-03-25] MEDS: traZODone 50 MG Tab PO SCH (21:45)
[2019-03-26] MEDS: Acetaminophen 325 MG Tab PO SCH ×2 (02:09→08:32)
[2019-03-26] MEDS: Meropenem 500 MG in Sodium Chloride 0.9% 50 ML IV SCH (05:27)
[2019-03-26] MEDS: Enoxaparin 60 MG/0.6 ML Syringe SUBCUT SCH (05:30)
[2019-03-26] MEDS: Pantoprazole 40 MG Tab.CR PO SCH (08:33)
[2019-03-26] MEDS: Bisacodyl 5 MG Tab PO SCH (08:33)
[2019-03-26] MEDS: Chlorthalidone 25 MG Tab PO SCH (08:33)
[2019-03-26] MEDS: FLUoxetine 10 MG Cap PO SCH (08:34)
--- NOTE | 2019-03-28 07:45 | OR ---
DATE OF PROCEDURE: 03/20/2019 SURGEON: Erlin Lala MD PREOPERATIVE DIAGNOSES: 1. Subcutaneous, possibly intraabdominal abscess associated with possible enterocutaneous fistula. 2. Probable recurrent small bowel obstruction. POSTOPERATIVE DIAGNOSES: 1. Intraabdominal abscess extending into the subcutaneous tissue with associated enterocutaneous fistula. 2. Obstructive biliopancreatic limb at jejunojejunostomy. 3. Focal abdominal wall fascial necrosis. OPERATIVE PROCEDURES: Exploratory laparotomy with lysis of extensive adhesions: 1. Drainage of intraabdominal abscess extending into the subcutaneous tissue (06820). 2. Closure of enterocutaneous fistula (52612). 3. Enteroenterostomy to bypass obstructive biliopancreatic limb of small bowel (45089). 4. Debridement of abdominal wall fascial necrosis (12057). ANESTHESIA: General. BOLT HEADER: Vivian Haley PA-C INDICATION FOR PROCEDURE: The patient presents with an obvious purulent collection in the subcutaneous tissue. The patient is recently status post a revision of jejunojejunostomy, and the CT scan has what appeared to be partial obstruction once again with there being quite massive dilation of the biliopancreatic limb extending into the bypassed portion of the stomach, which is also markedly distended. Given this, my plan is to proceed with the exploratory laparotomy with drainage of the abscess as indicated and either resection or bypass of the obstructing elements of the jejunojejunostomy and other procedures as indicated by operative findings. Potential risks including bleeding, infection, leaks from various GI tract closures, as well as possibility of cardiopulmonary, septic, or hemorrhagic complications leading to were all discussed, and the patient wishes to proceed. DETAILS OF PROCEDURE: The patient was taken to the operating room. After general endotracheal anesthesia was induced, a Koehler catheter was inserted. The previous midline abdominal incision was opened. A large amount of purulent material was evacuated and cultures were obtained. As this was evacuated, there appeared to be a tract downward through the fascia into the intraabdominal location, where there was some additional purulence located. Associated with this in the area just below the recent jejunojejunostomy, there appeared to be enterocutaneous fistula with a small amount of irrigation and suctioning creating an obvious opening in that small bowel, and it appeared that the enterocutaneous fistula was probably what was behind the formation of the abscess. At this point, the fascial incision was extended proximally and distally for more or less full length, and a quite tedious dissection was then undertaken. The enterocutaneous fistula was eventually freed up, such that there appeared to be reasonably good bowel for closure at this relatively early stage postoperatively. This was felt to be especially important due to the amount of general induration of the mesentery making the small bowel itself quite immobile over the proximal two thirds of its extent. The closure of the enteroenterostomy was then accomplished with a transversely oriented JOSE purple load. This staple line was then reinforced with seromuscular 3-0 Vicryl stitch, also with a transverse orientation. At the end of the procedure, fibrin sealant was placed over this closure, and the omental patch was tacked adjacent to it as well with 3-0 Vicryl stitch. Further dissection revealed markedly distended biliopancreatic limb. Again, in general, the small bowel was not overly mobile. What was part of the now decompressed common limb, did eventually come up to the side of the biliopancreatic limb, fairly close to the anastomosis, and it was felt this would be best dealt with by means of a bypass between those 2 structures. The Ruperto limb at this point as it extended into the jejunojejunostomy and the common limb beyond that was not significantly distended, and this did not appear to involve significant obstruction at this point. This bdba-co-ndaz enteroenterostomy between the biliopancreatic limb and common limb 3 cm distal to the jejunojejunostomy was then accomplished with internal firing of the Endo JOSE 60 mm stapler. The common opening was closed transversely with the same stapler, the angles anastomosed, and mesenteric defect approximated with 3-0 Vicryl stitch. At this point, the abdomen was irrigated with meropenem and Zyvox containing saline solution until all areas were clear. Bilateral subcostal transversus abdominis plane blocks were placed, with this needle being placed externally and the needle tip palpably getting into the transversus abdominis plane block. Fibrin sealant and omentum were then placed over the bypassed anastomosis as well at this point and then also brought over the previously made jejunojejunostomy, which had otherwise been open barrier to the abdominal wall. The patient was noted to have some fascial necrosis present involving the subcutaneous tissue and muscular fascia, and this was debrided. At that point, with further irrigation coming back clear in all areas, the midline fascia was then approximated with #2 Vicryl stitch and subcutaneous tissue was packed open with iodoform gauze. The patient was taken to the recovery room in satisfactory condition. There were no evident complications. Physician farm assistant, Vivian Haley, played an essential role in assisting in this case, helping to position the patient, retract structures as needed, as well as suturing and cutting sutures when indicated. Her presence improved the patient's safety and decreased operative time. Erlin Lala MD /[id number]
--- NOTE | 2019-03-28 08:02 | DISCH ---
ADMISSION DIAGNOSES: 1. Enterocutaneous fistula. 2. Open abdominal incision with drainage, initial counter. 3. Status post Ruperto-en-Y gastric bypass surgery. 4. Status post small bowel obstruction. 5. Dyslipidemia. 6. Coronary artery disease involving [place] coronary artery and [place] heart. Angina presence unspecified. 7. History of deep vein thrombosis. 8. Pulmonary embolism without acute cor pulmonale, unspecified chronicity. 9. Sleep apnea with use of CPAP. 10.Essential hypertension. 11.Vitamin B12 deficiency. DISCHARGE DIAGNOSES: 1. Exploratory laparotomy with lysis of extensive adhesions. 2. Drainage of intraabdominal abscess extending into subcutaneous tissue. 3. Closure of enterocutaneous fistula. 4. Enterostomy to bypass obstructive biliopancreatic small bowel. 5. Debridement of abdominal wall focal necrosis. POSTOPERATIVE DIAGNOSES: 1. Extensive intra-abdominal adhesions. 2. Intraabdominal abscess extending to the subcutaneous tissue. 3. Enterocutaneous fistula. 4. Obstructive biliopancreatic limb of the jejunostomy. 5. Focal abdominal necrosis. 6. Date of surgery: 03/20/2019. Surgeon: Erlin Lala MD. HOSPITAL COURSE: Aiyana is a 58-year-old female, who had a removal of a lap-band with conversion to Ruperto-en-Y gastric bypass surgery. She came back into the hospital on 03/08/2019, had a partial small bowel obstruction, and she had surgery for that on 03/08/2019. She presented to the clinic on 03/19/2019, with copious amounts of drainage from her incision, and after preoperative evaluation and discussion of possible risks and possible complications, she had surgery on 03/20/2019. She had no operative complications. On postoperative day #1, her incision was left open and she started dressing changes twice a day. Koehler was discontinued. On 03/22/2019, she started step 2 gastric bypass diet without cereal, protein supplements, and Dulcolax tablets 10 mg b.i.d. On 03/23/2019, she was changed to Dulcolax tablets. IV was decreased. She was tolerating a step 2 gastric bypass diet without cereal without any complications. On 03/24/2019, IV including multivitamins to stay at [facility]. Her FOUR SLIDE OPERATOR was discontinued and she was started on oral pain medication. On 03/26/2019, she is ready to be discharged to home. Culture and sensitivity returned on her open wound and drainage of the wound and it showed Enterobacter cloacae, viridans streptococcus, and viridans streptococcus #2, sensitive to meropenem, which she has had since admission. On 03/26/2019, she was ready to be discharged to home. Her vital signs stable. Activity good. Pain is controlled on Tylenol. REVIEW OF SYSTEMS: Remainder of review of systems negative for any pertinent positives and negatives. LABORATORY DATA: Culture of wound showed Enterobacter cloacae, viridans streptococcus, and viridans streptococcus #2, sensitive to meropenem, which she has been on in the hospital and sensitive to Cipro. OBJECTIVE: GENERAL: Aiyana Ortiz is a 58-year-old female. VITAL SIGNS: Height is 5 feet 4.5 inches, weight is 222 pounds. TPR is 96.8, 70, 16, blood pressure 122/81. HEENT: Negative. NECK: Supple. HEART: Regular rate and rhythm. LUNGS: Clear. ABDOMEN: Dressings are dry and intact. Abdominal binder is on. EXTREMITIES: Without peripheral edema. DISPOSITION: Discharged to home. CONDITION: Stable and improving. FOLLOWUP: Followup appointment with Erlin Lala on 03/28/2019 at 10:15 a.m., to arrive at clinic at 9:30 a.m. to have lab work done before appointment. Check CBC, CMP, mag, and phos. HOME MEDICATIONS: 1. Tylenol 650 mg q.6 hours p.r.n. pain. 2. Cipro 500 mg oral b.i.d. #14. 3. Protonix 40 mg b.i.d. #60. 4. She is to take aspirin 81 mg oral daily. 5. Chlorthalidone 12.5 mg oral daily. 6. Fluoxetine 10 mg oral daily. 7. Loratadine-pseudoephedrine/Claritin-D 24 hour tablet one daily. 8. Zofran ODT 4 mg every 6 hours. 9. Lipitor 20 mg oral daily. 10.Trazodone 25 mg oral at bedtime. 11.She is to start taking vitamin B12 sublingual once daily and Chew[employer]'s Vitamin b.i.d. DIET: Step 2 gastric bypass diet with no cereal for 2 weeks. Drink 8 to 10 glasses of water a day. ACTIVITY: As tolerated. No lifting greater than 10 pounds for 2 weeks. Driving: Do not drive for 1 week and while on pain medication. Shower/bathing: May shower. Keep wound incision clean and dry. Change dressing and pack incision as directed twice a day. Wear abdominal binder until incision is closed. DISCHARGE INSTRUCTIONS: Notify provider if any fever, increased pain, nausea, or vomiting. Use incentive spirometer 10 times every hour while awake.
== END 2019-03-26 09:00 | disposition home or self-care (01) | DRG 330 ==
LOC: JP.MS 15:01
PROVIDERS: ADMIT Surgery; ATTEND Surgery
PROC: 0W9G0ZZ Drainage of Peritoneal Cavity, Open Approach (ICD-10-PCS; principal; 2019-03-20)
PROC: 0D1A0ZA Bypass Jejunum to Jejunum, Open Approach (ICD-10-PCS; 2019-03-20)
PROC: 0JB80ZZ Excision of Abdomen Subcutaneous Tissue and Fascia, Open Approach (ICD-10-PCS; 2019-03-20)
PROC: 3E0H3GC Introduction of Other Therapeutic Substance into Lower GI, Percutaneous Approach (ICD-10-PCS; 2019-03-20)
DX: K31.6 Fistula of stomach and duodenum (principal); K63.0 Abscess of intestine; K95.89 Other complications of other bariatric procedure; I96 Gangrene, not elsewhere classified; F41.9 Anxiety disorder, unspecified; I25.10 Atherosclerotic heart disease of native coronary artery without angina pectoris; I10 Essential (primary) hypertension; E78.5 Hyperlipidemia, unspecified; G47.00 Insomnia, unspecified; G47.39 Other sleep apnea; E66.9 Obesity, unspecified; Z68.37 Body mass index [BMI] 37.0-37.9, adult; R63.5 Abnormal weight gain; Z86.718 Personal history of other venous thrombosis and embolism; Z86.711 Personal history of pulmonary embolism; Z98.84 Bariatric surgery status
CPT/HCPCS: 36415; 74177; 74240; 80053; 83735; 83880; 84100; 85025; 85027; 87070; 87075; 87077; 87186; 87205; 88304; 88305; 94762; A9270-GY; C9113; J0171; J0330; J1100; J1170; J1650; J2020; J2185; J2405; J2704; J2710; J2795; J3010; J3411; J3420; J3475; J3490; J7042; J7050; J7120; Q9967

== ENCOUNTER 2019-04-06 06:58 | Day surgery (SDC) | payer OTHER ==
[2019-04-06] MEDS ORDERED: Propofol 200 MG/20 ML SDV ONE (06:59)
[2019-04-06] MEDS ORDERED: fentaNYL 100 MCG/2 ML SDV ONE (06:59)
[2019-04-06] MEDS ORDERED: Midazolam 1 MG/ML 2 ML SDV ONE (06:59)
[2019-04-06] MEDS ORDERED: Glycopyrrolate 0.2 MG/ML 2 ML SDV IVPUSH ONE (07:45)
[2019-04-06] MEDS ORDERED: Lactated Ringers 1,000 ML IV ONE (07:45)
[2019-04-06] MEDS ORDERED: Cyanocobalamin (Vitamin B12) 1,000 MCG/ML SDV IM ONE (07:45)
[2019-04-06] MEDS ORDERED: MVI, Adult with Vitamin K 10 ML, Thiamine 200 MG, Chromium/Copper/Mang/Selen/Zn 1 ML in... IV ONE ×4 (07:45)
[2019-04-06] MEDS ORDERED: Pantoprazole 40 MG Vial IVPUSH ONE (08:36)
[2019-04-06] MEDS ORDERED: Magnesium Sulfate/Water 2 GM in Premix Bag 1 BAG IV ONE (09:30)
[2019-04-06] MEDS ORDERED: Alum Hydrox/Mag Hydrox/Simeth 360 ML, Lidocaine 2% 60 ML PO SCH ×2 (11:00)
--- NOTE | 2019-04-12 13:07 | OR ---
DATE OF PROCEDURE: 04/06/2019 SURGEON: Erlin Lala MD PREOPERATIVE DIAGNOSIS: Epigastric pain and dysphagia referable to the gastrojejunostomy. POSTOPERATIVE DIAGNOSIS: Large marginal ulcer at the gastrojejunostomy. OPERATIVE PROCEDURE: Upper gastrointestinal endoscopy. ANESTHESIA: IV sedation. INDICATION FOR PROCEDURE: The patient is status post a Ruperto-en-Y gastric bypass and presents with a significant dysphagia referable to the gastrojejunostomy along with some "quite a bit in the way of discomfort when eating." The plan is to proceed with upper GI endoscopy with biopsies and/or dilation as indicated. Potential risks including bleeding and perforation were discussed, and the patient wishes to proceed. DETAILS OF PROCEDURE: The patient was taken to the operating room and placed in a left lateral decubitus position. IV sedation was administered, after which the upper GI endoscope was passed orally through the length of the esophagus and into the area of the gastrojejunostomy and from there roughly 20 cm beyond the gastrojejunostomy to the Ruperto limb. Findings included normal esophagus, EG junction, and gastric pouch. Just beyond the gastric pouch, the patient had a quite large marginal ulcer with around 30% of the circumference of the jejunum and immediately adjacent to this gastrojejunostomy being occupied by an ulcer, which was covered with fibrinous exudate. At this point, no bleeding was seen. There was no significant stricturing per se with the scope easily passed through that area. No blood or bleeding was seen. The remainder of the Ruperto limb was visualized and was unremarkable. Scope was then withdrawn. The procedure then concluded. The plan at this point will be to give the patient Protonix 40 mg IV in the recovery room. She had been prescribed Protonix 40 mg b.i.d., but has not been on that so that will be restarted, and we will also give her liquid Carafate 500 mg q.i.d. on an empty stomach. This should maximally treat this ulcer. To facilitate the reduction of pain when eating in the short term, she will also mix 2 bottles of 2 ounces of viscous lidocaine in 12 ounces of Maalox to be taken prior to eating or drinking. One additional finding was, on her labs, magnesium level was quite low. She will be given magnesium sulfate 2 g in the ICU postoperatively and begin on magnesium oxide 400 mg a day. She will be following up with Vivian Haley in [facility] in about 2 weeks. Erlin Lala MD /[id number]
== END 2019-04-06 12:19 | disposition home or self-care (01) ==
LOC: JP.SDS 06:58
PROVIDERS: ATTEND Surgery
DX: K28.9 Gastrojejunal ulcer, unspecified as acute or chronic, without hemorrhage or perforation (principal); R13.10 Dysphagia, unspecified; I10 Essential (primary) hypertension; E78.5 Hyperlipidemia, unspecified; F41.9 Anxiety disorder, unspecified; Z98.0 Intestinal bypass and anastomosis status; Z88.0 Allergy status to penicillin
CPT/HCPCS: 43235; A9270; C9113; J2250; J2704; J3010; J3411; J3420; J3475; J3490; J7120

== ENCOUNTER → 2019-04-15 | Day surgery (SDC) | payer OTHER ==
[~2019-04-15] MED LIST: Lactated Ringers 1,000 ML IV ONE; MVI, Adult with Vitamin K 10 ML, Chromium/Copper/Mang/Selen/Zn 1 ML, Thiamine 100 MG in... IV ONE; Metoclopramide 10 MG/2 ML SDV IVPUSH ONE; Midazolam 1 MG/ML 2 ML SDV ONE; Propofol 200 MG/20 ML SDV ONE; Sodium Chloride 0.9% 10 ML Syringe FLUSH PRN; fentaNYL 100 MCG/2 ML SDV ONE
--- NOTE | 2019-04-15 13:33 | EDM.PDOC ---
ED HPI GENERAL MEDICAL PROBLEM - General Chief Complaint: General Stated Complaint: COMPLICATIONS FROM SURGERY Time Seen by Provider: 04/15/19 12:38 Source of Information: Reports: Patient, Family, Old Records, RN Notes Reviewed History Limitations: Reports: No Limitations - History of Present Illness INITIAL COMMENTS - FREE TEXT/NARRATIVE: 58-year-old female presents emergency department today complaint of dry heaves, she recently underwent EGD with dilatation approximately one week ago states did fine for the last several days however 2 days ago started developing dry heaves difficult for her to keep any liquids down. - Related Data Allergies Allergy/AdvReac Type Severity Reaction Status Date / Time Penicillins Allergy Rash Verified 04/06/19 07:19 Home Meds: Home Meds Aspirin [Adult Low Dose Aspirin EC] 81 mg PO DAILY 12/14/18 [History] Chlorthalidone 12.5 mg PO DAILY 12/14/18 [History] FLUoxetine HCl [Prozac] 10 mg PO DAILY 12/14/18 [History] atorvaSTATin Calcium [Lipitor] 20 mg PO DAILY 12/14/18 [History] traZODone HCl [Trazodone HCl] 25 mg PO BEDTIME PRN 12/14/18 [History] Ondansetron [Zofran ODT] 4 mg PO Q6H PRN #30 tab.dis 03/07/19 [Rx] Acetaminophen [Tylenol] 650 mg PO Q4H PRN cup 03/13/19 [Rx] Acetaminophen [Tylenol] 650 mg PO Q6H tablet 03/26/19 [Rx] Pantoprazole [ProTONIX] 40 mg PO BIDAC #60 tab.cr 03/26/19 [Rx] Cyanocobalamin (Vitamin B12) [Vitamin B12] 1,000 mcg PO DAILY 04/06/19 [History] Multivitamin with Minerals [Multiple Vitamin] 1 tab PO DAILY 04/06/19 [History] Vitamin B Complex 1 each PO DAILY 04/06/19 [History] Sucralfate [Carafate] 0.5 g PO QID 04/15/19 [History] Past Medical History HEENT History: Reports: Other (See Below) Other HEENT History: wears glasses Cardiovascular History: Reports: Blood Clots/VTE/DVT, High Cholesterol, Hypertension, Other (See Below) Other Cardiovascular History: 2009 angiogram showed "small blockage" - 2018 recheck showed no change in blockage Respiratory History: Reports: PE Gastrointestinal History: Reports: Bowel Obstruction, Colon Polyp, Irritable Bowel Syndrome Genitourinary History: Reports: None 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 BELT 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 History: Reports: , Other (See Below) Other CARTRIDGE BELT PUNCHER History: ovarian cysts Musculoskeletal History: Reports: Arthritis, Gout Neurological History: Reports: Concussion Psychiatric History: Reports: Anxiety Endocrine/Metabolic History: Reports: Obesity/BMI 30+ Hematologic History: Reports: B12 Deficiency - Infectious Disease History Infectious Disease History: Reports: Chicken Pox - Past Surgical History HEENT Surgical History: Reports: Oral Surgery, Other (See Below) Other HEENT Surgeries/Procedures: wisdom teeth removed Cardiovascular Surgical History: Reports: Other (See Below) Other Cardiovascular Surgeries/Procedures: angiogram Respiratory Surgical History: Reports: None GI Surgical History: Reports: Appendectomy, Bariatric Procedure, Colon, Colonoscopy, EGD, Hernia Repair/Other, Small Bowel, Other (See Below) Other GI Surgeries/Procedures: Lap Band 12 years ago. 7-15 removal lap band with RNY gastric bypass Female Surgical History: Reports: Section, Hysterectomy, Salpingo- Oophorectomy Endocrine Surgical History: Reports: None Neurological Surgical History: Reports: None Musculoskeletal Surgical History: Reports: None Social & Family History - Family History Family Medical History: Noncontributory Cardiac: Reports: MS - Tobacco Use Smoking Status *Q: Never Smoker - Caffeine Use Caffeine Use: Reports: None - Recreational Drug Use Recreational Drug Use: No ED ROS GENERAL - Review of Systems Review Of Systems: See Below Constitutional: Reports: No Symptoms Respiratory: Reports: No Symptoms Cardiovascular: Reports: No Symptoms GI/Abdominal: Reports: Other (Dry heaves) ED EXAM, GENERAL - Physical Exam Exam: See Below Exam Limited By: No Limitations General Appearance: Alert, WD/WN, No Apparent Distress Respiratory/Chest: No Respiratory Distress, Lungs Clear, Normal Breath Sounds, No Accessory Muscle Use, Chest Non-Tender Cardiovascular: Regular Rate, Rhythm, No Murmur GI/Abdominal: Soft, Tender (Tender over her surgical incision) Course - Vital Signs Last Recorded V/S: Last Vital Signs Temp 96.7 F 04/15/19 12:40 Pulse 81 04/15/19 17:31 Resp 16 04/15/19 17:31 BP 120/73 04/15/19 17:31 Pulse Ox 95 04/15/19 17:31 - Orders/Labs/Meds Orders: Active Orders 24 hr Category Date Time Status Patient Status [ADT] Routine ADT 04/15/19 13:36 Active Peripheral IV Care [RC] . DIRECTED Care 04/15/19 13:34 Active OR Fluoro-NC [CR] Routine Exams 04/15/19 16:49 Taken Sodium Chloride 0.9% [Saline Flush] Med 04/15/19 13:34 Active 10 ml FLUSH ASDIRECTED PRN Peripheral IV Insertion Adult [OM.PC] Urgent Oth 04/15/19 13:34 Ordered Medication Orders Sodium Chloride (Saline Flush) 10 ml FLUSH ASDIRECTED PRN PRN Reason: Keep Vein Open Last Admin: 04/15/19 15:09 Dose: 10 ml Meds: Medications Generic Name Dose Route Start Last Admin Trade Name Freq PRN Reason Stop Dose Admin Sodium Chloride 10 ml 04/15/19 13:34 04/15/19 15:09 Saline Flush FLUSH 10 ml ASDIRECTED PRN Administration Keep Vein Open Discontinued Medications Generic Name Dose Route Start Last Admin Trade Name Freq PRN Reason Stop Dose Admin Fentanyl Confirm 04/15/19 13:17 Sublimaze Administered 04/15/19 13:18 Dose 100 mcg .ROUTE .STK-MED ONE Lactated Ringer's 1,000 mls @ 500 mls/hr 04/15/19 13:45 04/15/19 14:09 Ringers, Lactated IV 04/15/19 15:44 Not Given ONETIME ONE Multivitamins/Minerals 10 ml/ 1,012 mls @ 500 mls/hr 04/15/19 14:45 04/15/19 15:08 Chromium/Copper/Manganese/ IV 04/15/19 16:46 500 mls/hr Seleni/Zn 1 ml/ Thiamine HCl ONETIME ONE Administration 100 mg/ Lactated Ringer's Lactated Ringer's 1,000 mls @ 999 mls/hr 04/15/19 13:34 04/15/19 13:56 Ringers, Lactated IV 04/15/19 14:34 999 mls/hr BOLUS ONE Administration Metoclopramide HCl 10 mg 04/15/19 16:59 04/15/19 17:17 Reglan IVPUSH 04/15/19 17:00 10 mg ONETIME ONE Administration Midazolam HCl Confirm 04/15/19 13:17 Versed 1 Mg/Ml Administered 04/15/19 13:18 Dose 2 mg .ROUTE .STK-MED ONE Propofol Confirm 04/15/19 13:17 Diprivan 20 Ml Administered 04/15/19 13:18 Dose 200 mg .ROUTE .STK-MED ONE Departure - Departure Time of Disposition: 17:51 Disposition: Home, Self-Care 01 Condition: Fair Clinical Impression: Epigastric pain - Discharge Information - My Orders Last 24 Hours: My Active Orders 04/15/19 13:34 Peripheral IV Care [RC] . DIRECTED Sodium Chloride 0.9% [Saline Flush] 10 ml FLUSH ASDIRECTED PRN Peripheral IV Insertion Adult [OM.PC] Urgent 04/15/19 13:36 Patient Status [ADT] Routine - Assessment/Plan Last 24 Hours: My Active Orders 04/15/19 13:34 Peripheral IV Care [RC] . DIRECTED Sodium Chloride 0.9% [Saline Flush] 10 ml FLUSH ASDIRECTED PRN Peripheral IV Insertion Adult [OM.PC] Urgent 04/15/19 13:36 Patient Status [ADT] Routine Plan: Assessment Acuity = acute Site and laterality = dry heaves, complicated in a patient with history of gastric bypass Etiology = unknown etiology Manifestations = none Location of injury = Home Lab values = [none Plan Discussed case Dr. Lala at 1330 he agreed to come and evaluate patient emergency department plan for EGD with dilation will give 1 L lactated Ringer's followed by lactated Ringer's, trace elements, multivitamin, and 100 mg thiamine This note was dictated using [employer] voice recognition software please call with any questions on syntax or grammar.
--- NOTE | 2019-05-24 14:59 | OR ---
DATE OF PROCEDURE: 04/15/2019 SURGEON: Erlin Lala MD PREOPERATIVE DIAGNOSIS: Dysphagia, status post Ruperto-en-Y gastric bypass. POSTOPERATIVE DIAGNOSES: 1. Improving ulcer with no stricture at gastrojejunostomy. 2. Bilious return within Ruperto limb and gastrojejunostomy, suggestive of possible partial small bowel obstruction, which has impaired small bowel motility. OPERATIVE PROCEDURE: Upper gastrointestinal endoscopy. ANESTHESIA: IV sedation. INDICATION FOR PROCEDURE: The patient is status post Ruperto-en-Y gastric bypass presenting with some symptoms suggestive of stricturing or ulceration at her gastrojejunostomy. The plan is to proceed with upper GI endoscopy with dilation as indicated. Potential risks including bleeding and perforation were discussed, and the patient wishes to proceed. DETAILS OF PROCEDURE: The patient was taken to the operating room and placed in a left lateral decubitus position. IV sedation was administered, after which the upper GI endoscope was passed orally through the length of the esophagus and into the area of the gastrojejunostomy and from there roughly 20 cm into the Ruperto limb. Findings included normal hypopharynx, larynx, upper esophageal sphincter, and esophageal body. Within the distal esophagus, the patient has been noted to have a small amount of bile present. The areas of ulceration previously seen at the gastrojejunostomy and gastric pouch were now markedly improved, and there was no significant stricturing of the gastrojejunostomy. The scope easily could be passed through that area, and apart from the bile and a small amount of inflammation at the gastrojejunostomy, the findings were otherwise normal. The amount of bile present may be related to a partial more distal small bowel obstruction, which at this point hopefully will resolve as the patient's postoperative edema from recent surgeries improves. There also might be some generalized poor motility related to that, and at this point, we will continue to facilitate frequent small meals to maintain adequate oral intake. Erlin Lala MD /[id number]
== END ==
LOC: JP.ED 12:13 → JP.SDS 16:23
PROVIDERS: ATTEND Surgery
DX: K95.89 Other complications of other bariatric procedure (principal); K28.9 Gastrojejunal ulcer, unspecified as acute or chronic, without hemorrhage or perforation; E78.00 Pure hypercholesterolemia, unspecified; I10 Essential (primary) hypertension; M19.90 Unspecified osteoarthritis, unspecified site; M10.9 Gout, unspecified; F41.9 Anxiety disorder, unspecified; E66.9 Obesity, unspecified; E53.8 Deficiency of other specified B group vitamins; Z98.84 Bariatric surgery status; Z88.0 Allergy status to penicillin; Z79.82 Long term (current) use of aspirin; Z79.899 Other long term (current) drug therapy; Z68.34 Body mass index [BMI] 34.0-34.9, adult
CPT/HCPCS: 43235; 96361; 96365; 96366; 96375; 99282; J2250; J2704; J2765; J3010; J3411; J7120

== ENCOUNTER 2019-05-18 07:43 | Day surgery (SDC) | payer OTHER ==
[2019-05-18] MEDS ORDERED: Ondansetron 4 MG/2 ML SDV IVPUSH ONE (08:28)
[2019-05-18] MEDS ORDERED: Cyanocobalamin (Vitamin B12) 1,000 MCG/ML SDV IM ONE (08:30)
[2019-05-18] MEDS ORDERED: Lactated Ringers 1,000 ML IV SCH (08:30)
[2019-05-18] MEDS ORDERED: Glycopyrrolate 0.2 MG/ML 2 ML SDV IVPUSH ONE (08:30)
[2019-05-18] MEDS ORDERED: MVI, Adult with Vitamin K 10 ML, Thiamine 200 MG, Chromium/Copper/Mang/Selen/Zn 1 ML in... IV ONE ×4 (09:00)
[2019-05-18] MEDS ORDERED: MVI, Adult with Vitamin K 10 ML, Thiamine 200 MG, Chromium/Copper/Mang/Selen/Zn 1 ML in... IV SCH ×4 (09:30)
[2019-05-18] MEDS ORDERED: Propofol 200 MG/20 ML SDV ONE (09:43)
[2019-05-18] MEDS ORDERED: fentaNYL 100 MCG/2 ML SDV ONE (09:43)
[2019-05-18] MEDS ORDERED: Scopolamine 1.5 MG Transdermal Patch TOP ONE (10:24)
[2019-05-18] MEDS ORDERED: Lidocaine 2% 60 ML, Alum Hydrox/Mag Hydrox/Simeth 360 ML PO PRN ×2 (10:29)
[2019-05-18] MEDS ORDERED: Vitamin A 100,000 Units/2 ML SDV IM ONE (13:15)
--- NOTE | 2019-05-24 12:39 | OR ---
DATE OF PROCEDURE: 05/18/2019 SURGEON: Erlin Lala MD PREOPERATIVE DIAGNOSIS: Nausea and relative anorexia status post revision of band to Ruperto- en-Y gastric bypass status. POSTOPERATIVE DIAGNOSES: 1. 2. Nausea and relative anorexia status post revision of band to Ruperto-en-Y gastric bypass status. 3. Some bile reflux in the area around the gastrojejunostomy suggestive of some impaired gastrointestinal tract motility or possible partial small bowel obstruction. OPERATIVE PROCEDURE: Upper GI endoscopy. ANESTHESIA: IV sedation. INDICATION FOR PROCEDURE: The patient presents with the above-noted symptoms. She has had some problems with stricturing and ulceration of the gastrojejunostomy in the past and presently is on Protonix. The plan is to proceed with upper GI endoscopy with biopsies and/or dilation as indicated. Potential risks including bleeding and perforation were discussed, and the patient wishes to proceed. DETAILS OF PROCEDURE: The patient was taken to the operating room and placed in a left lateral decubitus position. IV sedation was administered after which the upper GI endoscope was passed orally through the length of the esophagus, into the gastric pouch, and from there through the gastrojejunostomy roughly 20 cm into the Ruperto limb. Overall, there appeared to be no significant abnormalities in the upper esophageal sphincter or the esophagus itself. At the gastrojejunostomy, there was minimal in way of inflammation at this point with there not being any significant stricturing, and the scope easily passed through the area of the gastrojejunostomy into the Ruperto limb. The only abnormality at this point seen was that of some ongoing bile reflux from the Ruperto limb up into the area of the gastrojejunostomy. This may be related to some impaired GI tract motility and edema status post recent surgery versus a partial small bowel obstruction. The latter hopefully will improve with time, and at this point, we will add the Xylocaine and Mylanta mix to use p.r.n., and then for the nausea, add a scopolamine patch to be placed every 3 days. Her albumin is somewhat low at this point and we will give her 50 g of albumin today as well prior to discharge, and she will be following up with Vivian Haley at [facility] in [place] next Tuesday. We will need to watch this case fairly closely at this point to make sure that we are turning the corner in terms of her nutritional status. Erlin Lala MD /[id number]
== END 2019-05-18 15:57 | disposition home or self-care (01) ==
LOC: JP.SDS 07:43
PROVIDERS: ATTEND Surgery
DX: R11.0 Nausea (principal); R63.0 Anorexia; K21.9 Gastro-esophageal reflux disease without esophagitis; I10 Essential (primary) hypertension; Z98.0 Intestinal bypass and anastomosis status; Z98.84 Bariatric surgery status
CPT/HCPCS: 43235; A9270; J2405; J2704; J3010; J3411; J3420; J3490; J7120; P9047

== ENCOUNTER 2019-08-11 11:43 | Inpatient (IN) | payer OTHER ==
--- NOTE | 2019-08-11 12:41 | EDM.PDOC ---
ED HPI GENERAL MEDICAL PROBLEM - General Chief Complaint: Gastrointestinal Problem Stated Complaint: WEAKNESS POST GASTRIC BYPASS SURGERY Time Seen by Provider: 08/11/19 12:40 Source of Information: Reports: Patient History Limitations: Reports: No Limitations - History of Present Illness INITIAL COMMENTS - FREE TEXT/NARRATIVE: 59 years old female patient with history of gastric bypass back in 2014, was complicated with bowel obstruction, status post small bowel resection presented to the ER with chief complaint of nausea and vomiting/dry heaving since Tuesday. Progressively given Worse. Mild abdominal pain of left lower quadrant. Denies any urinary symptom. Denies any fever. Did not have a bowel movement for the last 3 days. Denies any chest pain shortness breath. Denies any cough or fever. She has this problem was nausea and vomiting since is a surgery for the last 4 or 5 years, worse for the last week - Related Data Allergies Allergy/AdvReac Type Severity Reaction Status Date / Time Penicillins Allergy Rash Verified 08/11/19 17:53 Home Meds: Home Meds Ondansetron [Zofran ODT] 4 mg PO Q6H PRN #30 tab.dis 03/07/19 [Rx] Cyanocobalamin (Vitamin B12) [Vitamin B12] 1,000 mcg PO DAILY 04/06/19 [History] Multivitamin with Minerals [Multiple Vitamin] 1 tab PO DAILY 04/06/19 [History] Vitamin B Complex 1 each PO DAILY 04/06/19 [History] Escitalopram Oxalate 1 tab PO DAILY 08/11/19 [History] Pantoprazole Sodium [Protonix] 40 mg PO DAILY 08/11/19 [History] Potassium Chloride In 0.9%NaCl [Potassium Cl Conc 20 Meq/20 ml] 15 ml PO DAILY 08/11/19 [History] Past Medical History HEENT History: Reports: Other (See Below) Other HEENT History: wears glasses Cardiovascular History: Reports: Blood Clots/VTE/DVT, High Cholesterol, Hypertension, Other (See Below) Other Cardiovascular History: 2009 angiogram showed "small blockage" - 2018 recheck showed no change in blockage Respiratory History: Reports: PE Gastrointestinal History: Reports: Bowel Obstruction, Colon Polyp, Irritable Bowel Syndrome Genitourinary History: Reports: None WOODYARD OPERATOR History: Reports: , Other (See Below) Other WOODYARD OPERATOR History: ovarian cysts Musculoskeletal History: Reports: Arthritis, Gout Neurological History: Reports: Concussion Psychiatric History: Reports: Anxiety Endocrine/Metabolic History: Reports: Obesity/BMI 30+ Hematologic History: Reports: B12 Deficiency - Infectious Disease History Infectious Disease History: Reports: Chicken Pox - Past Surgical History HEENT Surgical History: Reports: Oral Surgery, Other (See Below) Other HEENT Surgeries/Procedures: wisdom teeth removed Cardiovascular Surgical History: Reports: Other (See Below) Other Cardiovascular Surgeries/Procedures: angiogram Respiratory Surgical History: Reports: None GI Surgical History: Reports: Appendectomy, Bariatric Procedure, Colon, Colonoscopy, EGD, Hernia Repair/Other, Small Bowel, Other (See Below) Other GI Surgeries/Procedures: Lap Band 12 years ago. 7-15 removal lap band with RNY gastric bypass Female Surgical History: Reports: Section, Hysterectomy, Salpingo- Oophorectomy Endocrine Surgical History: Reports: None Neurological Surgical History: Reports: None Musculoskeletal Surgical History: Reports: None Dermatological Surgical History: Reports: None Social & Family History - Family History Family Medical History: Noncontributory Cardiac: Reports: NM - Tobacco Use Smoking Status *Q: Never Smoker - Caffeine Use Caffeine Use: Reports: None ED ROS GENERAL - Review of Systems Review Of Systems: Comprehensive ROS is negative, except as noted in HPI. ED EXAM, GI/ABD - Physical Exam Exam: See Below Exam Limited By: No Limitations General Appearance: Alert, WD/WN, No Apparent Distress Ears: Normal External Exam, Hearing Grossly Normal Head: Atraumatic, Normocephalic Neck: Normal Inspection, Supple, Non-Tender, Full Range of Motion Respiratory/Chest: No Respiratory Distress, Lungs Clear, Normal Breath Sounds, No Accessory Muscle Use, Chest Non-Tender Cardiovascular: Normal Peripheral Pulses, Regular Rate, Rhythm, No Edema, No Gallop, No JVD, No Murmur, No Rub GI/Abdominal Exam: Normal Bowel Sounds, Soft, No Organomegaly, No Abnormal Bruit , No Mass, Pelvis Stable, Tender, Other (Mild tenderness of the left lower quadrant. No guarding no rebound. Abdominal scars.). No: Guarding, Rigid, Rebound Extremities: Normal Inspection, Normal Range of Motion, Non-Tender, Normal Capillary Refill, No Pedal Edema Neurological: Alert, Oriented, CN II-XII Intact, Normal Cognition, Normal Gait, Normal Reflexes, No Motor/Sensory Deficits Skin Exam: Warm, Dry, Intact, Normal Color, No Rash Course - Vital Signs Last Recorded V/S: Last Vital Signs Temp 36.1 C 08/11/19 17:29 Pulse 68 08/11/19 17:29 Resp 16 08/11/19 17:29 BP 116/78 08/11/19 17:29 Pulse Ox 99 08/11/19 17:29 - Orders/Labs/Meds Orders: Active Orders 24 hr Category Date Time Status PTT,PARTIAL THROMBOPLSTIN TIME [COAG] Routine Lab 08/11/19 22:30 Ordered Heparin Sodium/D5W [Heparin 25,000 Units in D5W 500 ML] Med 08/11/19 16:15 Active 25,000 units in 500 ml IV TITRATE Medication Orders Acetaminophen (Tylenol) 650 mg PO Q4H PRN PRN Reason: Pain (Mild 1-3)/fever Cyanocobalamin (Vitamin B12) 1,000 mcg PO DAILY QUIN Escitalopram Oxalate (Lexapro) 5 mg PO DAILY QUIN Hydromorphone HCl (Dilaudid) 0.5 mg IVPUSH Q2H PRN PRN Reason: Pain (severe 7-10) Heparin Sodium/Dextrose (Heparin 25,000 Units In D5w 500 Ml) 25,000 units in 500 mls @ 24.732 mls/hr IV TITRATE QUIN; Protocol Last Admin: 08/11/19 17:45 Dose: 18 units/kg/hr, 24.732 mls/hr Potassium Cl/Dextrose/Lact Ringer's (D5 Lr With 20 Meq Kcl) 1,000 mls @ 75 mls/ hr IV ASDIRECTED QUIN Last Admin: 08/11/19 19:06 Dose: 75 mls/hr Lorazepam (Ativan) 0.5 mg IVPUSH Q4H PRN PRN Reason: Nausea/Vomiting Magnesium Hydroxide (Milk Of Magnesia) 30 ml PO Q12H PRN PRN Reason: Constipation Last Admin: 08/11/19 18:38 Dose: 30 ml Ondansetron HCl (Zofran Odt) 4 mg PO Q6H PRN PRN Reason: Nausea able to take PO Ondansetron HCl (Zofran) 4 mg IV Q6H PRN PRN Reason: Nausea/Vomiting Oxycodone HCl (Oxycodone) 5 - 10 mg PO Q4H PRN PRN Reason: Pain Pantoprazole Sodium (Protonix) 40 mg PO BIDAC QUIN Last Admin: 08/11/19 17:56 Dose: Senna/Docusate Sodium (Senna Plus) 1 tab PO BID PRN PRN Reason: Constipation Vitamin B Complex (Vitamin B Complex) 1 each PO DAILY QUIN Labs: Laboratory Tests 08/11/19 08/11/19 08/11/19 Range/Units 12:46 13:00 13:00 WBC 11.6 H (4.5-11.0) K/uL RBC 3.69 (3.30-5.50) M/uL Hgb 11.6 L (12.0-15.0) g/dL Hct 35.7 L (36.0-48.0) % MCV 97 (80-98) fL MCH 31 (27-31) pg MCHC 33 (32-36) % Plt Count 298 (150-400) K/uL Neut % (Auto) 69 H (36-66) % Lymph % (Auto) 21 L (24-44) % Calhoun % (Auto) 10 H (2-6) % Eos % (Auto) 0 L (2-4) % Baso % (Auto) 0 (0-1) % APTT (27.0-36.0) sec Sodium 135 L (140-148) mmol/L Potassium 4.1 (3.6-5.2) mmol/L Chloride 100 (100-108) mmol/L Carbon Dioxide 23 (21-32) mmol/L Anion Gap 16.1 H (5.0-14.0) mmol/L BUN 24 H D (7-18) mg/dL Creatinine 0.9 (0.6-1.0) mg/dL Est Cr Clr Drug Dosing 58.12 mL/min Estimated GFR (MDRD) > 60 (>60) Glucose 88 (74-106) mg/dL Lactic Acid (0.4-2.0) mmol/L Calcium 8.2 L (8.5-10.1) mg/dL Total Bilirubin 0.7 D (0.2-1.0) mg/dL AST 34 D (15-37) U/L ALT 19 (12-78) U/L Alkaline Phosphatase 133 H (46-116) U/L C-Reactive Protein 2.87 H (0.0-0.3) mg/dL Total Protein 6.3 L (6.4-8.2) g/dL Albumin 2.0 L (3.4-5.0) g/dL Globulin 4.3 H (2.3-3.5) g/dL Albumin/Globulin Ratio 0.5 L (1.2-2.2) Lipase 71 L (73-393) U/L Urine Color Yellow (YELLOW) Urine Appearance Slightly cloudy A (CLEAR) Urine pH 7.0 (5.0-8.0) Ur Specific Bruno 1.015 (1.008-1.030) Urine Protein Negative (NEGATIVE) mg/dL Urine Glucose (UA) Negative (NEGATIVE) mg/dL Urine Ketones Trace H (NEGATIVE) mg/dL Urine Occult Blood Negative (NEGATIVE) Urine Nitrite Negative (NEGATIVE) Urine Bilirubin Small H (NEGATIVE) Urine Urobilinogen 4.0 H (0.2-1.0) EU/dL Ur Leukocyte Esterase Small H (NEGATIVE) Urine RBC 5-10 H (0-5) Urine WBC 20-30 H (0-5) Ur Epithelial Cells Few Amorphous Sediment Not seen Urine Bacteria Many Urine Mucus Moderate 08/11/19 08/11/19 Range/Units 13:00 16:13 WBC (4.5-11.0) K/uL RBC (3.30-5.50) M/uL Hgb (12.0-15.0) g/dL Hct (36.0-48.0) % MCV (80-98) fL MCH (27-31) pg MCHC (32-36) % Plt Count (150-400) K/uL Neut % (Auto) (36-66) % Lymph % (Auto) (24-44) % Calhoun % (Auto) (2-6) % Eos % (Auto) (2-4) % Baso % (Auto) (0-1) % APTT 25.7 L (27.0-36.0) sec Sodium (140-148) mmol/L Potassium (3.6-5.2) mmol/L Chloride (100-108) mmol/L Carbon Dioxide (21-32) mmol/L Anion Gap (5.0-14.0) mmol/L BUN (7-18) mg/dL Creatinine (0.6-1.0) mg/dL Est Cr Clr Drug Dosing mL/min Estimated GFR (MDRD) (>60) Glucose (74-106) mg/dL Lactic Acid 1.4 (0.4-2.0) mmol/L Calcium (8.5-10.1) mg/dL Total Bilirubin (0.2-1.0) mg/dL AST (15-37) U/L ALT (12-78) U/L Alkaline Phosphatase (46-116) U/L C-Reactive Protein (0.0-0.3) mg/dL Total Protein (6.4-8.2) g/dL Albumin (3.4-5.0) g/dL Globulin (2.3-3.5) g/dL Albumin/Globulin Ratio (1.2-2.2) Lipase (73-393) U/L Urine Color (YELLOW) Urine Appearance (CLEAR) Urine pH (5.0-8.0) Ur Specific Bruno (1.008-1.030) Urine Protein (NEGATIVE) mg/dL Urine Glucose (UA) (NEGATIVE) mg/dL Urine Ketones (NEGATIVE) mg/dL Urine Occult Blood (NEGATIVE) Urine Nitrite (NEGATIVE) Urine Bilirubin (NEGATIVE) Urine Urobilinogen (0.2-1.0) EU/dL Ur Leukocyte Esterase (NEGATIVE) Urine RBC (0-5) Urine WBC (0-5) Ur Epithelial Cells Amorphous Sediment Urine Bacteria Urine Mucus Meds: Medications Generic Name Dose Route Start Last Admin Trade Name Freq PRN Reason Stop Dose Admin Acetaminophen 650 mg 08/11/19 16:33 Tylenol PO Q4H PRN Pain (Mild 1-3)/fever Cyanocobalamin 1,000 mcg 08/12/19 09:00 Vitamin B12 PO DAILY [facility] Escitalopram Oxalate 5 mg 08/12/19 09:00 Lexapro PO DAILY QUIN Hydromorphone HCl 0.5 mg 08/11/19 16:33 Dilaudid IVPUSH Q2H PRN Pain (severe 7-10) Heparin Sodium/Dextrose 25,000 units in 500 mls @ 24.732 mls/hr 08/11/19 16: 15 08/11/19 17:45 Heparin 25,000 Units In D5w 500 Ml IV 18 units/kg/hr TITRATE QUIN 24.732 mls/hr Administration Protocol 18 UNITS/KG/HR Potassium Cl/Dextrose/Lact Ringer's 1,000 mls @ 75 mls/hr 08/11/19 20:00 19:06 D5 Lr With 20 Meq Kcl IV 75 mls/hr ASDIRECTED QUIN Administration Lorazepam 0.5 mg 08/11/19 16:33 Ativan IVPUSH Q4H PRN Nausea/Vomiting Magnesium Hydroxide 30 ml 08/11/19 16:33 08/11/19 18:38 Milk Of Magnesia PO 30 ml Q12H PRN Administration Constipation Ondansetron HCl 4 mg 08/11/19 16:33 Zofran Odt PO Q6H PRN Nausea able to take PO Ondansetron HCl 4 mg 08/11/19 16:33 Zofran IV Q6H PRN Nausea/Vomiting Oxycodone HCl 5 - 10 mg 08/11/19 16:33 Oxycodone PO Q4H PRN Pain Pantoprazole Sodium 40 mg 08/11/19 16:33 08/11/19 17:56 Protonix PO Not Given BIDAC QUIN Senna/Docusate Sodium 1 tab 08/11/19 16:33 Senna Plus PO BID PRN Constipation Vitamin B Complex 1 each 08/12/19 09:00 Vitamin B Complex PO DAILY QUIN Discontinued Medications Generic Name Dose Route Start Last Admin Trade Name Freq PRN Reason Stop Dose Admin Heparin Sodium (Porcine) 5,000 units 08/11/19 16:15 08/11/19 17:44 Heparin Sodium IVPUSH 08/11/19 16:16 5,000 units ONETIME ONE Administration Sodium Chloride 1,000 mls @ 999 mls/hr 08/11/19 12:48 08/11/19 13:49 Normal Saline IV 08/11/19 13:48 999 mls/hr .BOLUS STA Administration Sodium Chloride 71 mls @ 0 mls/hr 08/11/19 13:00 08/11/19 13:41 Normal Saline IV 08/11/19 13:01 3 mls/hr ASDIRECTED QUIN Administration KVO Multivitamins/Minerals 10 ml/ 1,010 mls @ 500 mls/hr 08/11/19 16:33 Sodium Chloride IV 08/11/19 18:34 ASDIRECTED ONE Iopamidol 100 ml 08/11/19 13:00 08/11/19 13:41 Isovue-300 (61%) IV 08/11/19 13:01 100 ml . DIRECTED QUIN Administration Ondansetron HCl 4 mg 08/11/19 12:48 08/11/19 13:06 Zofran IVPUSH 08/11/19 12:49 4 mg ONETIME ONE Administration Sodium Chloride 10 ml 08/11/19 12:53 08/11/19 13:41 Saline Flush FLUSH 08/11/19 12:54 10 ml ONETIME ONE Administration - Re-Assessments/Exams Free Text/Narrative Re-Assessment/Exam: 08/11/19 12:52 Patient was seen and examined shortly after arrival. Stable. Given 1 L normal saline bolus, 4 mg IV Zofran, lab and imaging reviewed with the patient. CT shows abdominal mass 8.4 x 4.8 cm concerning for omentum infarction, also multiple right lower lobe pulmonary embolism. Patient denies any chest pain shortness breath. I did consulted was Dr. Lala general surgeon hydroelectric component machinist and he recommended admitting the patient to Dr. Campo hospitalist hydroelectric component machinist and he will see the patient in the morning. I did consulted was Dr. Campo and he accepted admission for further management. He will start patient on Antivert relation. Patient agrees with the plan. Stable for admission. 08/11/19 19:14 Departure - Departure Time of Disposition: 16:30 Disposition: Admitted As Inpatient 66 Condition: Good Clinical Impression: Abdominal mass, Pulmonary embolism, Vomiting - Discharge Information Sepsis Event Note - Evaluation Sepsis Screening Result: No Definite Risk - Focused Exam Vital Signs: Vital Signs Temp Pulse Resp BP Pulse Ox 08/11/19 12:30 35.3 C 59 L 12 112/73 99 08/11/19 12:17 35.3 C 59 L 12 112/73 99 Date Exam was Performed: 08/11/19 Time Exam was Performed: 19:13 - Assessment/Plan Plan: admitt to Dr. Campo
[2019-08-11] MEDS ORDERED: Ondansetron 4 MG/2 ML SDV IVPUSH ONE (12:48)
[2019-08-11] MEDS ORDERED: Sodium Chloride 0.9% 1,000 ML IV STA (12:48)
[2019-08-11] MEDS ORDERED: Sodium Chloride 0.9% 10 ML Syringe FLUSH ONE (12:53)
[2019-08-11] MEDS ORDERED: Iopamidol 612 MG/ML 100 ML Bottle IV SCH (13:00)
[2019-08-11] MEDS ORDERED: Sodium Chloride 0.9% 71 ML IV SCH (13:00)
--- NOTE | 2019-08-11 14:44 | CRLCT ---
INDICATION: Nausea. Vomiting. Abdominal pain. TECHNIQUE: CT abdomen and pelvis acquired with 100 mL of Isovue-300 contrast. COMPARISON: CT abdomen and pelvis 03/19/2019. FINDINGS: Lower chest: Pulmonary embolus extending into multiple right lower lobe pulmonary artery branches, for example as seen on image 2 of series 2. Lung bases are otherwise clear. No pleural or pericardial effusions. Small hiatal hernia. Liver: Unremarkable. Spleen: Unremarkable. Pancreas: Unremarkable. Gallbladder and bile ducts: Cholelithiasis. No inflammatory changes involving the gallbladder. No biliary ductal dilatation. Kidneys: Unremarkable. Adrenal glands: Unremarkable. GI tract: Gastric bypass changes, as before. Small bowel anastomosis in the left abdomen appears intact. There is a new rounded mixed attenuation masslike focus in the lower abdomen/pelvis at the level of the iliac wings in an area where there are also new postoperative changes. This measures up to 8.4 x 4.8 cm in transverse and AP dimension on image 90 of series 2. This causes mild mass effect on the anterior abdominal wall and small bowel. No foci of gas associated with this abnormality. Colonic diverticulosis without evidence of acute diverticulitis. No free air or free fluid. Vascular structures: Atherosclerotic disease. No abdominal aortic aneurysm. Lymph nodes: Unremarkable. Pelvic Organs: Hysterectomy. Bladder as imaged is unremarkable. Bones: Mild degenerative changes of the spine. Mild to moderate degenerative changes of the bilateral hips. IMPRESSION: 1. New 8.4 x 4.8 cm heterogeneous masslike focus in the midline lower abdomen in the region of interval postoperative change, concerning for intra-abdominal fat necrosis or omental infarction. No bowel obstruction, pneumatosis or free intraperitoneal gas. 2. Multiple right lower lobe pulmonary emboli. Discussed with Dr. Morales at the time of dictation. Dictated by Zhao Eid MD @ 08/11/2019 2:41:44 PM Dictated by: Zhao Eid MD @ 08/11/2019 14:41:58 (Electronically Signed)
[2019-08-11] MEDS ORDERED: Heparin Sodium 5,000 Units/ML Vial IVPUSH ONE (16:15)
--- NOTE | 2019-08-11 16:24 | PCM.HP.2 ---
H&P History of Present Illness - General Date of Service: 08/11/19 Admit Problem/Dx: Admission Diagnosis/Problem Admission Diagnosis/Problem Pulmonary embolism on right Source of Information: Patient, Family, Provider History Limitations: Reports: No Limitations - History of Present Illness Initial Comments - Free Text/Narative: CC: I've felt better HPI: Aiyana presents to the emergency room today with acute on chronic nausea with dry heaves as well as abdominal discomfort. She says that she has not felt well for at least the last month. She has had intermittent nausea and intermittent dry heaving. Appetite has not been very good and she has struggled to get in her daily recommendation of fluid and protein because of the nausea. She has been evaluated several times and has not responded well to sublingual ondansetron. Symptoms get worse whenever she tries to eat and even sometimes prior to eating. Over the past few days she is developed some mild left sided and left lower quadrant abdominal discomfort. She describes this as a mild ache. No obvious exacerbating factors and it seems to wax and wane on its own. She has not taken anything to make it feel better. Pain has slowly been getting worse. The pain is not constant. She has not had much of a bowel movement in the last few days and thought this may have been the reason for the pain. She is not aware of any fevers or chills. She thinks that her strength has been slowly declining. She has been working with physical therapy but seems to be getting weaker despite the therapy. No significant change in her bladder habits. She does not feel short of breath and has not had any chest pain or calf swelling. She does note intermittent dizziness and lightheadedness. Work-up in the emergency room was suggestive of mild dehydration based on laboratory studies. White blood cell count is mildly elevated. A CT scan of the abdomen and pelvis revealed an 8.4 x 4.8 cm heterogenous mass in the lower portion of the abdomen in the midline. This is concerning for either fat necrosis or omental infarction. No evidence for bowel obstruction. Also noted was multiple right lower lung pulmonary emboli. - Related Data Allergies/Adverse Reactions: Allergies Allergy/AdvReac Type Severity Reaction Status Date / Time Penicillins Allergy Rash Verified 08/11/19 12:19 Home Medications: Home Meds Ondansetron [Zofran ODT] 4 mg PO Q6H PRN #30 tab.dis 07/17/19 [Rx] Pantoprazole [ProTONIX] 40 mg PO BIDAC #60 tab.cr 03/26/19 [Rx] Cyanocobalamin (Vitamin B12) [Vitamin B12] 1,000 mcg PO DAILY 04/06/19 [History] Multivitamin with Minerals [Multiple Vitamin] 1 tab PO DAILY 04/06/19 [History] Vitamin B Complex 1 each PO DAILY 04/06/19 [History] Escitalopram Oxalate 1 tab PO DAILY 08/11/19 [History] Potassium Chloride In 0.9%NaCl [Potassium Cl Conc 20 Meq/20 ml] 15 ml PO DAILY 08/11/19 [History] Past Medical History HEENT History: Reports: Other (See Below) Other HEENT History: wears glasses Cardiovascular History: Reports: Blood Clots/VTE/DVT, High Cholesterol, Hypertension, Other (See Below) Other Cardiovascular History: 2009 angiogram showed "small blockage" - 2018 recheck showed no change in blockage Respiratory History: Reports: PE Gastrointestinal History: Reports: Bowel Obstruction, Colon Polyp, Irritable Bowel Syndrome Genitourinary History: Reports: None [employer] History: Reports: , Other (See Below) Other OB/BYN History: ovarian cysts Musculoskeletal History: Reports: Arthritis, Gout Neurological History: Reports: Concussion Psychiatric History: Reports: Anxiety Endocrine/Metabolic History: Reports: Obesity/BMI 30+ Hematologic History: Reports: B12 Deficiency - Infectious Disease History Infectious Disease History: Reports: Chicken Pox - Past Surgical History HEENT Surgical History: Reports: Oral Surgery, Other (See Below) Other HEENT Surgeries/Procedures: wisdom teeth removed Cardiovascular Surgical History: Reports: Other (See Below) Other Cardiovascular Surgeries/Procedures: angiogram Respiratory Surgical History: Reports: None GI Surgical History: Reports: Appendectomy, Bariatric Procedure, Colon, Colonoscopy, EGD, Hernia Repair/Other, Small Bowel, Other (See Below) Other GI Surgeries/Procedures: Lap Band 12 years ago. 7-15 removal lap band with RNY gastric bypass Female Surgical History: Reports: Section, Hysterectomy, Salpingo- Oophorectomy Endocrine Surgical History: Reports: None Neurological Surgical History: Reports: None Musculoskeletal Surgical History: Reports: None Dermatological Surgical History: Reports: None Social & Family History - Family History Family Medical History: Noncontributory Cardiac: Reports: PR - Tobacco Use Smoking Status *Q: Never Smoker - Caffeine Use Caffeine Use: Reports: None - Alcohol Use Alcohol Use History: No H&P Review of Systems - Review of Systems: Review Of Systems: See Below Free Text/Narrative: A complete 12 point review of systems was obtained. Pertinent positives and negatives are noted in the history of present illness. All other systems were reviewed and were negative except as noted. Exam - Exam Exam: See Below - Vital Signs Vital Signs: Last Vital Signs Temp 35.3 C 08/11/19 12:30 Pulse 59 L 08/11/19 12:30 Resp 12 08/11/19 12:30 BP 112/73 08/11/19 12:30 Pulse Ox 99 08/11/19 12:30 Weight: 68.7 kg - Exam Quality Assessment: No: Supplemental Oxygen General: Alert, Oriented, Cooperative. No: Mild Distress HEENT: Conjunctiva Clear, Mucosa Moist & [place]. No: Scleral Icterus Neck: Supple, Trachea Midline. No: Lymphadenopathy Lungs: Clear to Auscultation, Normal Respiratory Effort Cardiovascular: Regular Rate, Regular Rhythm. No: Systolic Murmur GI/Abdominal Exam: Normal Bowel Sounds, Soft, No Distention, No Mass, Tender ( mild LLQ and LUQ). No: Guarding Back Exam: Normal Inspection, Full Range of Motion Extremities: No Pedal Edema. No: Baldemar's Sign, Increased Warmth Peripheral Pulses: 1+: Dorsalis Pedis (L), Dorsalis Pedis (R) Skin: Warm, Dry Neuro Extensive - Mental Status: Alert, Oriented x3, Nl Response to Commands Neuro Extensive - Motor, Sensory, Reflexes: No: Dysarthria, Abnormal Motor, Tremor Psychiatric: Alert, Normal Affect - Patient Data Lab Results Last 24 hrs: Laboratory Results - last 24 hr 08/11/19 08/11/19 08/11/19 Range/Units 12:46 13:00 13:00 WBC 11.6 H (4.5-11.0) K/uL RBC 3.69 (3.30-5.50) M/uL Hgb 11.6 L (12.0-15.0) g/dL Hct 35.7 L (36.0-48.0) % MCV 97 (80-98) fL MCH 31 (27-31) pg MCHC 33 (32-36) % Plt Count 298 (150-400) K/uL Neut % (Auto) 69 H (36-66) % Lymph % (Auto) 21 L (24-44) % [place] % (Auto) 10 H (2-6) % Eos % (Auto) 0 L (2-4) % Baso % (Auto) 0 (0-1) % Sodium 135 L (140-148) mmol/L Potassium 4.1 (3.6-5.2) mmol/L Chloride 100 (100-108) mmol/L Carbon Dioxide 23 (21-32) mmol/L Anion Gap 16.1 H (5.0-14.0) mmol/L BUN 24 H D (7-18) mg/dL Creatinine 0.9 (0.6-1.0) mg/dL Est Cr Clr Drug Dosing 58.12 mL/min Estimated GFR (MDRD) > 60 (>60) Glucose 88 (74-106) mg/dL Lactic Acid (0.4-2.0) mmol/L Calcium 8.2 L (8.5-10.1) mg/dL Total Bilirubin 0.7 D (0.2-1.0) mg/dL AST 34 D (15-37) U/L ALT 19 (12-78) U/L Alkaline Phosphatase 133 H (46-116) U/L C-Reactive Protein 2.87 H (0.0-0.3) mg/dL Total Protein 6.3 L (6.4-8.2) g/dL Albumin 2.0 L (3.4-5.0) g/dL Globulin 4.3 H (2.3-3.5) g/dL Albumin/Globulin Ratio 0.5 L (1.2-2.2) Lipase 71 L (73-393) U/L Urine Color Yellow (YELLOW) Urine Appearance Slightly cloudy A (CLEAR) Urine pH 7.0 (5.0-8.0) Ur Specific [place] 1.015 (1.008-1.030) Urine Protein Negative (NEGATIVE) mg/dL Urine Glucose (UA) Negative (NEGATIVE) mg/dL Urine Ketones Trace H (NEGATIVE) mg/dL Urine Occult Blood Negative (NEGATIVE) Urine Nitrite Negative (NEGATIVE) Urine Bilirubin Small H (NEGATIVE) Urine Urobilinogen 4.0 H (0.2-1.0) EU/dL Ur Leukocyte Esterase Small H (NEGATIVE) Urine RBC 5-10 H (0-5) Urine WBC 20-30 H (0-5) Ur Epithelial Cells Few Amorphous Sediment Not seen Urine Bacteria Many Urine Mucus Moderate 08/11/19 Range/Units 13:00 WBC (4.5-11.0) K/uL RBC (3.30-5.50) M/uL Hgb (12.0-15.0) g/dL Hct (36.0-48.0) % MCV (80-98) fL MCH (27-31) pg MCHC (32-36) % Plt Count (150-400) K/uL Neut % (Auto) (36-66) % Lymph % (Auto) (24-44) % [place] % (Auto) (2-6) % Eos % (Auto) (2-4) % Baso % (Auto) (0-1) % Sodium (140-148) mmol/L Potassium (3.6-5.2) mmol/L Chloride (100-108) mmol/L Carbon Dioxide (21-32) mmol/L Anion Gap (5.0-14.0) mmol/L BUN (7-18) mg/dL Creatinine (0.6-1.0) mg/dL Est Cr Clr Drug Dosing mL/min Estimated GFR (MDRD) (>60) Glucose (74-106) mg/dL Lactic Acid 1.4 (0.4-2.0) mmol/L Calcium (8.5-10.1) mg/dL Total Bilirubin (0.2-1.0) mg/dL AST (15-37) U/L ALT (12-78) U/L Alkaline Phosphatase (46-116) U/L C-Reactive Protein (0.0-0.3) mg/dL Total Protein (6.4-8.2) g/dL Albumin (3.4-5.0) g/dL Globulin (2.3-3.5) g/dL Albumin/Globulin Ratio (1.2-2.2) Lipase (73-393) U/L Urine Color (YELLOW) Urine Appearance (CLEAR) Urine pH (5.0-8.0) Ur Specific [place] (1.008-1.030) Urine Protein (NEGATIVE) mg/dL Urine Glucose (UA) (NEGATIVE) mg/dL Urine Ketones (NEGATIVE) mg/dL Urine Occult Blood (NEGATIVE) Urine Nitrite (NEGATIVE) Urine Bilirubin (NEGATIVE) Urine Urobilinogen (0.2-1.0) EU/dL Ur Leukocyte Esterase (NEGATIVE) Urine RBC (0-5) Urine WBC (0-5) Ur Epithelial Cells Amorphous Sediment Urine Bacteria Urine Mucus Result Diagrams: 08/11/19 13:00 08/11/19 13:00 Imaging Impressions Last 24 hrs: CT scan of the abdomen and pelvis -images personally reviewed-incidentally noted were multiple right lower lobe pulmonary emboli. In the abdomen there was an 8.4 x 4.8 cm heterogenous mass concerning for fat necrosis or omental infarction. Cholelithiasis was noted. No cholecystitis. Status post gastric bypass surgery. Sepsis Event Note - Evaluation Sepsis Screening Result: No Definite Risk - Focused Exam Vital Signs: Vital Signs Temp Pulse Resp BP Pulse Ox 08/11/19 12:30 35.3 C 59 L 12 112/73 99 08/11/19 12:17 35.3 C 59 L 12 112/73 99 Date Exam was Performed: 08/11/19 Time Exam was Performed: 16:36 *Q Meaningful Use (ADM) - VTE Risk Assess *Q Each Risk Factor Represents 1 Point: Age 41 - 59 years, Obesity ( BMI > 25 kg/m2 ) Total Score 1 Point Risk Factors: 2 Each Risk Factor Represents 2 Points: None Total Score 2 Point Risk Factors: 0 Each Risk Factor Represents 3 Points: History of DVT/PE Total Score 3 Point Risk Factors: 3 Each Risk Factor Represents 5 Points: None Total Score 5 Point Risk Factors: 0 Venous Thromboembolism Risk Factor Score *Q: 5 - Problem List (1) Pulmonary embolism on right SNOMED Code(s): 84810933 ICD Code: I26.99 - OTHER PULMONARY EMBOLISM WITHOUT ACUTE COR PULMONALE Status: Acute Current Visit: Yes (2) Fat necrosis of omentum SNOMED Code(s): 399211194 ICD Code: K65.4 - SCLEROSING MESENTERITIS Status: Suspected Current Visit : Yes (3) Status post gastric bypass for obesity SNOMED Code(s): 976111227, 192864927, 914747922, 677940591 ICD Code: Z98.84 - BARIATRIC SURGERY STATUS Status: Acute Current Visit: No Problem Details: Removal of band Problem List Initiated/Reviewed/Updated: Yes Orders Last 24hrs: Active Orders 24 hr Category Date Time Status Patient Status Manage Transfer [TRANSFER] Routine ADT 08/11/19 16:16 Ordered PTT,PARTIAL THROMBOPLSTIN TIME [COAG] Routine Lab 08/11/19 22:30 Ordered PTT,PARTIAL THROMBOPLSTIN TIME [COAG] Stat Lab 08/11/19 16:13 Ordered Heparin Sodium/D5W [Heparin 25,000 Units in D5W 500 ML] Med 08/11/19 16:15 Active 25,000 units in 500 ml IV TITRATE Resuscitation Status Routine Resus Stat 08/11/19 16:18 Ordered Medication Orders Heparin Sodium/Dextrose (Heparin 25,000 Units In D5w 500 Ml) 25,000 units in 500 mls @ 24.732 mls/hr IV TITRATE QUIN; Protocol Assessment/Plan Comment:: ASSESSMENT AND PLAN - Fat necrosis/omental infarct, suspected-CT scan showed 8.4 x 4.8 cm heterogenous mass concerning for fat necrosis/infarction. This area is not tender but could explain some of her abdominal symptoms. Surgical intervention is likely necessary with additional plans to be developed over the next couple of days. -Symptom management -IV fluids -Consult with Dr. Lala regarding surgical intervention Right lower lung pulmonary emboli-incidentally noted on CT scan. These are likely chronic and I suspect they may have been there for a month or more based on symptoms. Vital signs are stable. -5000 unit heparin bolus -Heparin drip per VTE protocol Status post gastric bypass surgery-gastric bypass completed in February of this year. Multiple postoperative complications including small bowel obstruction requiring additional resection. -Multivitamin bag Maintenance issues - - DVT prophylaxis -heparin - GI prophylaxis -PPI - Nutrition -full liquids - Koehler catheter -not indicated CODE STATUS -full code Admission justification -this patient will be admitted for inpatient services and is medically appropriate meeting medical necessity for inpatient admission as outlined in my documentation. I reasonably expect the patient will require inpatient services that span a period time over 2 midnights. I reasonably expect this patient to be discharged or transferred within 96 hours [facility]. Disposition -I would anticipate discharge to home after the hospital stay Manuel Campo M.D. - Mortality Measure Prognosis:: Good
[2019-08-11] MEDS ORDERED: Acetaminophen 325 MG Tab PO PRN (16:33)
[2019-08-11] MEDS ORDERED: Ondansetron 4 MG Tab.DIS PO PRN (16:33)
[2019-08-11] MEDS ORDERED: oxyCODONE 5 MG Tab PO PRN (16:33)
[2019-08-11] MEDS ORDERED: HYDROmorphone 1 MG/ML Syringe IVPUSH PRN (16:33)
[2019-08-11] MEDS ORDERED: Ondansetron 4 MG/2 ML SDV IV PRN (16:33)
[2019-08-11] MEDS ORDERED: MVI, Adult with Vitamin K 10 ML in Sodium Chloride 0.9% 1,000 ML IV ONE ×2 (16:33)
[2019-08-11] MEDS: Heparin Sodium/D5W 25,000 UNITS/500 ML BAG IV SCH (17:45)
[2019-08-11] MEDS: Pantoprazole 40 MG Tab.CR PO SCH (17:56)
[2019-08-11] MEDS: Magnesium Hydroxide 400 MG/5 ML Susp 30 ML Cup PO PRN (18:38)
[2019-08-11] MEDS: Dextrose 5%-Lact Ringers w/KCl 1,000 ML IV SCH (19:06)
[2019-08-12] MEDS: Pantoprazole 40 MG Tab.CR PO SCH ×2 (07:21→17:24)
[2019-08-12] MEDS: Vitamin B Complex Tab PO SCH (09:44)
[2019-08-12] MEDS: Escitalopram 10 MG Tab PO SCH (09:45)
[2019-08-12] MEDS: Dextrose 5%-Lact Ringers w/KCl 1,000 ML IV SCH ×2 (09:45→23:03)
[2019-08-12] MEDS: Cyanocobalamin (Vitamin B12) 1,000 MCG Tab PO SCH (09:45)
[2019-08-12] MEDS: LORazepam 2 MG/ML SDV IVPUSH PRN ×3 (10:06→20:24)
--- NOTE | 2019-08-12 11:07 | PCM.PN ---
- General Info Date of Service: 08/12/19 Subjective Update: No acute events overnight following admission. No significant abdominal pain or nausea. Not much of an appetite. No complaints of shortness of breath. Vital signs stable and she has not been hypoxic. Surgical intervention is planned for tomorrow. No evidence for bleeding with the heparin infusion. Functional Status: Reports: Pain Controlled, Tolerating Diet - Review of Systems General: Reports: Weakness. Denies: Fever Pulmonary: Denies: Shortness of Breath - Patient Data Vitals - Most Recent: Last Vital Signs Temp 36.2 C 08/12/19 11:04 Pulse 59 L 08/12/19 11:04 Resp 16 08/12/19 11:04 BP 116/80 08/12/19 11:04 Pulse Ox 95 08/12/19 11:04 Weight - Most Recent: 69.49 kg I&O - Last 24 Hours: Intake & Output 08/11/19 08/12/19 08/12/19 22:59 06:59 14:59 Intake Total 300 1882 Output Total 300 700 Balance 0 1182 Lab Results Last 24 Hours: Laboratory Results - last 24 hr 08/11/19 08/11/19 08/11/19 Range/Units 12:46 13:00 13:00 WBC 11.6 H (4.5-11.0) K/uL RBC 3.69 (3.30-5.50) M/uL Hgb 11.6 L (12.0-15.0) g/dL Hct 35.7 L (36.0-48.0) % MCV 97 (80-98) fL MCH 31 (27-31) pg MCHC 33 (32-36) % Plt Count 298 (150-400) K/uL Neut % (Auto) 69 H (36-66) % Lymph % (Auto) 21 L (24-44) % Stone % (Auto) 10 H (2-6) % Eos % (Auto) 0 L (2-4) % Baso % (Auto) 0 (0-1) % APTT (27.0-36.0) sec Sodium 135 L (140-148) mmol/L Potassium 4.1 (3.6-5.2) mmol/L Chloride 100 (100-108) mmol/L Carbon Dioxide 23 (21-32) mmol/L Anion Gap 16.1 H (5.0-14.0) mmol/L BUN 24 H D (7-18) mg/dL Creatinine 0.9 (0.6-1.0) mg/dL Est Cr Clr Drug Dosing 58.12 mL/min Estimated GFR (MDRD) > 60 (>60) Glucose 88 (74-106) mg/dL Lactic Acid (0.4-2.0) mmol/L Calcium 8.2 L (8.5-10.1) mg/dL Magnesium (1.8-2.4) mg/dL Total Bilirubin 0.7 D (0.2-1.0) mg/dL AST 34 D (15-37) U/L ALT 19 (12-78) U/L Alkaline Phosphatase 133 H (46-116) U/L C-Reactive Protein 2.87 H (0.0-0.3) mg/dL Total Protein 6.3 L (6.4-8.2) g/dL Albumin 2.0 L (3.4-5.0) g/dL Globulin 4.3 H (2.3-3.5) g/dL Albumin/Globulin Ratio 0.5 L (1.2-2.2) Lipase 71 L (73-393) U/L Urine Color Yellow (YELLOW) Urine Appearance Slightly cloudy A (CLEAR) Urine pH 7.0 (5.0-8.0) Ur Specific [place] 1.015 (1.008-1.030) Urine Protein Negative (NEGATIVE) mg/dL Urine Glucose (UA) Negative (NEGATIVE) mg/dL Urine Ketones Trace H (NEGATIVE) mg/dL Urine Occult Blood Negative (NEGATIVE) Urine Nitrite Negative (NEGATIVE) Urine Bilirubin Small H (NEGATIVE) Urine Urobilinogen 4.0 H (0.2-1.0) EU/dL Ur Leukocyte Esterase Small H (NEGATIVE) Urine RBC 5-10 H (0-5) Urine WBC 20-30 H (0-5) Ur Epithelial Cells Few Amorphous Sediment Not seen Urine Bacteria Many Urine Mucus Moderate 08/11/19 08/11/19 08/11/19 Range/Units 13:00 16:13 22:25 WBC (4.5-11.0) K/uL RBC (3.30-5.50) M/uL Hgb (12.0-15.0) g/dL Hct (36.0-48.0) % MCV (80-98) fL MCH (27-31) pg MCHC (32-36) % Plt Count (150-400) K/uL Neut % (Auto) (36-66) % Lymph % (Auto) (24-44) % Stone % (Auto) (2-6) % Eos % (Auto) (2-4) % Baso % (Auto) (0-1) % APTT 25.7 L 277.5 H* (27.0-36.0) sec Sodium (140-148) mmol/L Potassium (3.6-5.2) mmol/L Chloride (100-108) mmol/L Carbon Dioxide (21-32) mmol/L Anion Gap (5.0-14.0) mmol/L BUN (7-18) mg/dL Creatinine (0.6-1.0) mg/dL Est Cr Clr Drug Dosing mL/min Estimated GFR (MDRD) (>60) Glucose (74-106) mg/dL Lactic Acid 1.4 (0.4-2.0) mmol/L Calcium (8.5-10.1) mg/dL Magnesium (1.8-2.4) mg/dL Total Bilirubin (0.2-1.0) mg/dL AST (15-37) U/L ALT (12-78) U/L Alkaline Phosphatase (46-116) U/L C-Reactive Protein (0.0-0.3) mg/dL Total Protein (6.4-8.2) g/dL Albumin (3.4-5.0) g/dL Globulin (2.3-3.5) g/dL Albumin/Globulin Ratio (1.2-2.2) Lipase (73-393) U/L Urine Color (YELLOW) Urine Appearance (CLEAR) Urine pH (5.0-8.0) Ur Specific [place] (1.008-1.030) Urine Protein (NEGATIVE) mg/dL Urine Glucose (UA) (NEGATIVE) mg/dL Urine Ketones (NEGATIVE) mg/dL Urine Occult Blood (NEGATIVE) Urine Nitrite (NEGATIVE) Urine Bilirubin (NEGATIVE) Urine Urobilinogen (0.2-1.0) EU/dL Ur Leukocyte Esterase (NEGATIVE) Urine RBC (0-5) Urine WBC (0-5) Ur Epithelial Cells Amorphous Sediment Urine Bacteria Urine Mucus 08/12/19 08/12/19 08/12/19 Range/Units 05:42 05:42 05:42 WBC 9.7 (4.5-11.0) K/uL RBC 2.97 L (3.30-5.50) M/uL Hgb 9.5 L D (12.0-15.0) g/dL Hct 29.4 L (36.0-48.0) % MCV 99 H (80-98) fL MCH 32 H (27-31) pg MCHC 32 (32-36) % Plt Count 247 (150-400) K/uL Neut % (Auto) (36-66) % Lymph % (Auto) (24-44) % Stone % (Auto) (2-6) % Eos % (Auto) (2-4) % Baso % (Auto) (0-1) % APTT 159.2 H* (27.0-36.0) sec Sodium 139 L (140-148) mmol/L Potassium 3.9 (3.6-5.2) mmol/L Chloride 107 (100-108) mmol/L Carbon Dioxide 26 (21-32) mmol/L Anion Gap 9.9 (5.0-14.0) mmol/L BUN 13 (7-18) mg/dL Creatinine 0.8 (0.6-1.0) mg/dL Est Cr Clr Drug Dosing 65.38 mL/min Estimated GFR (MDRD) > 60 (>60) Glucose 107 H (74-106) mg/dL Lactic Acid (0.4-2.0) mmol/L Calcium 7.7 L (8.5-10.1) mg/dL Magnesium 2.1 (1.8-2.4) mg/dL Total Bilirubin (0.2-1.0) mg/dL AST (15-37) U/L ALT (12-78) U/L Alkaline Phosphatase (46-116) U/L C-Reactive Protein (0.0-0.3) mg/dL Total Protein (6.4-8.2) g/dL Albumin (3.4-5.0) g/dL Globulin (2.3-3.5) g/dL Albumin/Globulin Ratio (1.2-2.2) Lipase (73-393) U/L Urine Color (YELLOW) Urine Appearance (CLEAR) Urine pH (5.0-8.0) Ur Specific [place] (1.008-1.030) Urine Protein (NEGATIVE) mg/dL Urine Glucose (UA) (NEGATIVE) mg/dL Urine Ketones (NEGATIVE) mg/dL Urine Occult Blood (NEGATIVE) Urine Nitrite (NEGATIVE) Urine Bilirubin (NEGATIVE) Urine Urobilinogen (0.2-1.0) EU/dL Ur Leukocyte Esterase (NEGATIVE) Urine RBC (0-5) Urine WBC (0-5) Ur Epithelial Cells Amorphous Sediment Urine Bacteria Urine Mucus Med Orders - Current: Current Medications Acetaminophen (Tylenol) 650 mg PO Q4H PRN PRN Reason: Pain (Mild 1-3)/fever Ropivacaine 35 ml/Dexamethasone 8 mg/Epinephrine HCl 0.4 mg/ Sodium Chloride 42.6 ml 0 ml NERVRT ASDIRECTED [facility] Cyanocobalamin (Vitamin B12) 1,000 mcg PO DAILY QUIN Last Admin: 08/12/19 09:45 Dose: 1,000 mcg Escitalopram Oxalate (Lexapro) 5 mg PO DAILY QUIN Last Admin: 08/12/19 09:45 Dose: 5 mg Hydromorphone HCl (Dilaudid) 0.5 mg IVPUSH Q2H PRN PRN Reason: Pain (severe 7-10) Heparin Sodium/Dextrose (Heparin 25,000 Units In D5w 500 Ml) 25,000 units in 500 mls @ 24.732 mls/hr IV TITRATE QUIN; Protocol Stop: 08/13/19 06:00 Last Titration: 08/12/19 09:37 Dose: 12 units/kg/hr, 16.488 mls/hr Potassium Cl/Dextrose/Lact Ringer's (D5 Lr With 20 Meq Kcl) 1,000 mls @ 75 mls/ hr IV ASDIRECTED QUIN Last Admin: 08/12/19 09:45 Dose: 75 mls/hr Lidocaine HCl/Dextrose (Lidocaine 2 Gm/D5w 500 Ml) 2 gm in 500 mls @ 15 mls/hr IV .Q24H QUIN Ketamine HCl 50 mg/ Sodium (Chloride) 50 mls @ 16.41 mls/hr IV ASDIRECTED QUIN Meropenem 500 mg/ Sodium (Chloride) 50 mls @ 100 mls/hr IV ONCALL ONE Stop: 08/13/19 12:29 Ketamine HCl (Ketalar) 27 mg IV ASDIRECTED [facility] Lidocaine HCl (Xylocaine 2%) 90 mg IVPUSH ASDIRECTED [facility] Lorazepam (Ativan) 0.5 mg IVPUSH Q4H PRN PRN Reason: Nausea/Vomiting Last Admin: 08/12/19 10:06 Dose: 0.5 mg Magnesium Hydroxide (Milk Of Magnesia) 30 ml PO Q12H PRN PRN Reason: Constipation Last Admin: 08/11/19 18:38 Dose: 30 ml Ondansetron HCl (Zofran Odt) 4 mg PO Q6H PRN PRN Reason: Nausea able to take PO Ondansetron HCl (Zofran) 4 mg IV Q6H PRN PRN Reason: Nausea/Vomiting Oxycodone HCl (Oxycodone) 5 - 10 mg PO Q4H PRN PRN Reason: Pain Pantoprazole Sodium (Protonix) 40 mg PO BIDAC [facility] Last Admin: 08/12/19 07:21 Dose: 40 mg Senna/Docusate Sodium (Senna Plus) 1 tab PO BID PRN PRN Reason: Constipation Vitamin B Complex (Vitamin B Complex) 1 each PO DAILY [facility] Last Admin: 08/12/19 09:44 Dose: 1 each Discontinued Medications Heparin Sodium (Porcine) (Heparin Sodium) 5,000 units IVPUSH ONETIME ONE Stop: 08/11/19 16:16 Last Admin: 08/11/19 17:44 Dose: 5,000 units Sodium Chloride (Normal Saline) 1,000 mls @ 999 mls/hr IV .BOLUS STA Stop: 08/11/19 13:48 Last Admin: 08/11/19 13:49 Dose: 999 mls/hr Sodium Chloride (Normal Saline) 71 mls @ 0 mls/hr IV ASDIRECTED QUIN Stop: 08/11/19 13:01 Last Admin: 08/11/19 13:41 Dose: 3 mls/hr Multivitamins/Minerals 10 ml/ (Sodium Chloride) 1,010 mls @ 500 mls/hr IV ASDIRECTED ONE Stop: 08/11/19 18:34 Last Admin: 08/11/19 19:20 Dose: 500 mls/hr Iopamidol (Isovue-300 (61%)) 100 ml IV . DIRECTED QUIN Stop: 08/11/19 13:01 Last Admin: 08/11/19 13:41 Dose: 100 ml Ondansetron HCl (Zofran) 4 mg IVPUSH ONETIME ONE Stop: 08/11/19 12:49 Last Admin: 08/11/19 13:06 Dose: 4 mg Sodium Chloride (Saline Flush) 10 ml FLUSH ONETIME ONE Stop: 08/11/19 12:54 Last Admin: 08/11/19 13:41 Dose: 10 ml - Exam Quality Assessment: No: Supplemental Oxygen General: Alert, Oriented, Cooperative, No Acute Distress Lungs: Normal Respiratory Effort GI/Abdominal Exam: Soft, No Distention Extremities: No Pedal Edema Psy/Mental Status: Alert, Normal Affect Sepsis Event Note - Evaluation Sepsis Screening Result: No Definite Risk - Focused Exam Vital Signs: Vital Signs Temp Pulse Resp BP BP Pulse Ox 08/12/19 11:04 36.2 C 59 L 16 116/80 95 08/12/19 07:30 35.9 C 61 18 118/84 94 L 08/12/19 05:52 36.3 C 65 18 119/75 97 Date Exam was Performed: 08/12/19 Time Exam was Performed: 15:06 - Problem List & Annotations (1) Pulmonary embolism on right SNOMED Code(s): 95567424 Code(s): I26.99 - OTHER PULMONARY EMBOLISM WITHOUT ACUTE COR PULMONALE Status: Acute Current Visit: Yes (2) Fat necrosis of omentum SNOMED Code(s): 051651535 Code(s): K65.4 - SCLEROSING MESENTERITIS Status: Suspected Current Visit : Yes (3) Status post gastric bypass for obesity SNOMED Code(s): 080665085, 102864008, 517121990, 279405471 Code(s): Z98.84 - BARIATRIC SURGERY STATUS Status: Acute Current Visit: No Annotation/Comment:: Removal of band - Problem List Review Problem List Initiated/Reviewed/Updated: Yes - My Orders Last 24 Hours: My Active Orders 08/11/19 16:15 Heparin Sodium/D5W [Heparin 25,000 Units in D5W 500 ML] 25,000 units in 500 ml IV TITRATE 08/11/19 16:18 Resuscitation Status Routine 08/11/19 16:33 Patient Status [ADT] Routine Intake and Output [RC] QSHIFT Notify Provider Consults [RC] ASDIRECTED Notify Provider Vital Signs [RC] ASDIRECTED Oxygen Therapy [RC] PRN Up With Assistance [RC] ASDIRECTED VTE/DVT Education [RC] Per Unit Routine Vital Signs [RC] Q4H Consult to Physician [CONS] Routine Acetaminophen [Tylenol] 650 mg PO Q4H PRN Docusate Sodium/Sennosides [Senna Plus] 1 tab PO BID PRN HYDROmorphone [Dilaudid] 0.5 mg IVPUSH Q2H PRN LORazepam [Ativan] 0.5 mg IVPUSH Q4H PRN Magnesium Hydroxide [Milk of Magnesia] 30 ml PO Q12H PRN Ondansetron [Zofran ODT] 4 mg PO Q6H PRN Ondansetron [Zofran] 4 mg IV Q6H PRN Pantoprazole [ProTONIX] 40 mg PO BIDAC oxyCODONE 5 - 10 mg PO Q4H PRN 08/11/19 20:00 Dextrose 5%-Lact Ringers w/KCl [D5 LR with 20 mEq KCl] 1,000 ml IV ASDIRECTED 08/11/19 Dinner Full Liquid Diet [DIET] 08/12/19 09:00 Cyanocobalamin (Vitamin B12) [Vitamin B12] 1,000 mcg PO DAILY Escitalopram [Lexapro] 5 mg PO DAILY Vitamin B Complex 1 each PO DAILY 08/12/19 14:30 PTT,PARTIAL THROMBOPLSTIN TIME [COAG] Routine 08/12/19 Dinner NPO After Midnight [Nothing per Oral After Midnight Diet] [DIET] - Plan Plan:: ASSESSMENT AND PLAN - Fat necrosis/omental infarct, suspected-CT scan showed 8.4 x 4.8 cm heterogenous mass concerning for fat necrosis/infarction. Surgical intervention is planned for tomorrow. -Symptom management -IV fluids -Nothing by mouth after midnight -Consult with Dr. Lala regarding surgical intervention Right lower lung pulmonary emboli-incidentally noted on CT scan. These are likely chronic and I suspect they may have been there for a month or more based on symptoms. Vital signs are stable. -Heparin drip per VTE protocol, discontinue at 6 AM tomorrow morning -Consider rivaroxaban for longer-term management (15 mg p.o. twice daily x15 days then 20 mg daily) -Plan for 3 to 6 months of treatment Status post gastric bypass surgery-gastric bypass completed in February of this year. Multiple postoperative complications including abscess formation with drainage and small resection. -Multivitamin bag Maintenance issues - - DVT prophylaxis -heparin - GI prophylaxis -PPI - Nutrition -full liquids, nothing by mouth after midnight Disposition -I would anticipate discharge to home after the hospital stay Manuel Campo M.D.
[2019-08-12] MEDS: Magnesium Hydroxide 400 MG/5 ML Susp 30 ML Cup PO PRN (12:12)
[2019-08-12] MEDS: Heparin Sodium/D5W 25,000 UNITS/500 ML BAG IV SCH (23:05)
[2019-08-13] MEDS: Pantoprazole 40 MG Tab.CR PO SCH ×2 (07:33→17:28)
--- NOTE | 2019-08-13 08:42 | PN ---
DATE OF SERVICE: 08/13/2019 SUBJECTIVE: Aiyana was admitted on 08/11/2019 with nausea, dry heaves. She has not had any emesis, but she will spit some clear phlegm. She reports after her appointment on 08/07/2019, things got worse and she presented to the ER on Tuesday. Has noticed no improvement with IV fluid. Continues to have nausea. Has had no dry heaves because she has not had anything to eat. Pain is controlled. REVIEW OF SYSTEMS: Remainder of review of systems negative for any pertinent positives and negatives. OBJECTIVE: GENERAL: Aiyana Ortiz is a 59-year-old female. VITAL SIGNS: Height 5 feet 4 inches, weight is 153 pounds, BMI 26. TPR 97.5, 65, 18, blood pressure 104/78. HEENT: Negative. NECK: Supple. HEART: Regular rate and rhythm. LUNGS: Clear. ABDOMEN: Incision is well healed. There is pain to palpation in the left lower quadrant, otherwise exam is negative. EXTREMITIES: Negative. There is no peripheral edema. ASSESSMENT: 1. Pulmonary embolism, right lower lung, and mass-like fat necrosis, right lower abdomen. 2. Malnutrition. 3. Chronic nausea, dry heaves. 4. Status post gastric bypass for obesity. 5. Depression. PLAN: 1. Scheduled and have consent signed for placement of Soria catheter, IV sedation. 2. Plan is to start TPN therapy. 3. Upper GI with small-bowel follow-through in a.m., 08/14/2019. 4. We will check CBC, CMP, mag, phos, and BNP in a.m. 5. We will evaluate p.r.n. or in a.m. Vivian Haley PA-C /[id number]
[2019-08-13] MEDS: LORazepam 2 MG/ML SDV IVPUSH PRN (08:57)
[2019-08-13] MEDS: Escitalopram 10 MG Tab PO SCH (09:02)
[2019-08-13] MEDS ORDERED: Lidocaine 1% with EPINEPHrine 1:100,000 50 ML MDV ONE (10:08)
[2019-08-13] MEDS ORDERED: Bupivacaine 0.5% 50 ML MDV ONE (10:08)
[2019-08-13] MEDS: Cyanocobalamin (Vitamin B12) 1,000 MCG Tab PO SCH (10:47)
[2019-08-13] MEDS: Vitamin B Complex Tab PO SCH (10:47)
--- NOTE | 2019-08-13 10:57 | PCM.PN ---
- General Info Date of Service: 08/13/19 Subjective Update: No acute events overnight. No significant abdominal pain. Mild nausea. Soria catheter placement planned today and TPN will be initiated. Surgery will be delayed for a couple of days. Family had lots of questions about what the surgery will entail and what the recovery time may look like. Functional Status: Reports: Pain Controlled - Review of Systems General: Denies: Fever - Patient Data Vitals - Most Recent: Last Vital Signs Temp 36.4 C 08/13/19 07:00 Pulse 65 08/13/19 07:00 Resp 18 08/13/19 07:00 BP 104/78 08/13/19 07:00 Pulse Ox 94 L 08/13/19 07:00 Weight - Most Recent: 69.49 kg I&O - Last 24 Hours: Intake & Output 08/12/19 08/13/19 08/13/19 22:59 06:59 14:59 Intake Total 1988 1830 Output Total 400 500 450 Balance 1589 1330 -450 Lab Results Last 24 Hours: Laboratory Results - last 24 hr 08/12/19 08/12/19 08/13/19 Range/Units 14:30 20:50 04:10 WBC 9.4 (4.5-11.0) K/uL RBC 3.02 L (3.30-5.50) M/uL Hgb 9.5 L (12.0-15.0) g/dL Hct 30.4 L (36.0-48.0) % MCV 101 H (80-98) fL MCH 32 H (27-31) pg MCHC 31 L (32-36) % Plt Count 249 (150-400) K/uL APTT 50.4 H 69.9 H (27.0-36.0) sec Sodium (140-148) mmol/L Potassium (3.6-5.2) mmol/L Chloride (100-108) mmol/L Carbon Dioxide (21-32) mmol/L Anion Gap (5.0-14.0) mmol/L BUN (7-18) mg/dL Creatinine (0.6-1.0) mg/dL Est Cr Clr Drug Dosing mL/min Estimated GFR (MDRD) (>60) Glucose (74-106) mg/dL Calcium (8.5-10.1) mg/dL Phosphorus (2.5-4.9) mg/dL Magnesium (1.8-2.4) mg/dL Ferritin (8-388) ng/ml Total Bilirubin (0.2-1.0) mg/dL AST (15-37) U/L ALT (12-78) U/L Alkaline Phosphatase (46-116) U/L Total Protein (6.4-8.2) g/dL Albumin (3.4-5.0) g/dL Globulin (2.3-3.5) g/dL Albumin/Globulin Ratio (1.2-2.2) Vitamin B12 (193-986) pg/ml Blood Type Gel Antibody Screen Crossmatch 08/13/19 08/13/19 08/13/19 Range/Units 04:10 04:10 04:10 WBC (4.5-11.0) K/uL RBC (3.30-5.50) M/uL Hgb (12.0-15.0) g/dL Hct (36.0-48.0) % MCV (80-98) fL MCH (27-31) pg MCHC (32-36) % Plt Count (150-400) K/uL APTT 75.8 H (27.0-36.0) sec Sodium 140 (140-148) mmol/L Potassium 3.9 (3.6-5.2) mmol/L Chloride 108 (100-108) mmol/L Carbon Dioxide 25 (21-32) mmol/L Anion Gap 7.0 (5.0-14.0) mmol/L BUN 7 (7-18) mg/dL Creatinine 0.8 (0.6-1.0) mg/dL Est Cr Clr Drug Dosing 65.38 mL/min Estimated GFR (MDRD) > 60 (>60) Glucose 99 (74-106) mg/dL Calcium 7.8 L (8.5-10.1) mg/dL Phosphorus 3.2 (2.5-4.9) mg/dL Magnesium 2.2 (1.8-2.4) mg/dL Ferritin 284 (8-388) ng/ml Total Bilirubin 0.2 D (0.2-1.0) mg/dL AST 13 L (15-37) U/L ALT 15 (12-78) U/L Alkaline Phosphatase 91 (46-116) U/L Total Protein 4.5 L (6.4-8.2) g/dL Albumin 1.3 L (3.4-5.0) g/dL Globulin 3.2 (2.3-3.5) g/dL Albumin/Globulin Ratio 0.4 L (1.2-2.2) Vitamin B12 1967 H (193-986) pg/ml Blood Type A NEGATIVE Gel Antibody Screen Negative Crossmatch See Detail Med Orders - Current: Current Medications Acetaminophen (Tylenol) 650 mg PO Q4H PRN PRN Reason: Pain (Mild 1-3)/fever Ropivacaine 35 ml/Dexamethasone 8 mg/Epinephrine HCl 0.4 mg/ Sodium Chloride 42.6 ml 0 ml NERVRT ASDIRECTED [facility] Cyanocobalamin (Vitamin B12) 1,000 mcg PO DAILY [facility] Last Admin: 08/13/19 10:47 Dose: Not Given Escitalopram Oxalate (Lexapro) 5 mg PO DAILY [facility] Last Admin: 08/13/19 09:02 Dose: 5 mg Hydromorphone HCl (Dilaudid) 0.5 mg IVPUSH Q2H PRN PRN Reason: Pain (severe 7-10) Potassium Cl/Dextrose/Lact Ringer's (D5 Lr With 20 Meq Kcl) 1,000 mls @ 75 mls/ hr IV ASDIRECTED [facility] Last Admin: 08/12/19 23:03 Dose: 75 mls/hr Lidocaine HCl/Dextrose (Lidocaine 2 Gm/D5w 500 Ml) 2 gm in 500 mls @ 15 mls/hr IV .Q24H QUIN Ketamine HCl 50 mg/ Sodium (Chloride) 50 mls @ 16.41 mls/hr IV ASDIRECTED [facility] Meropenem 500 mg/ Sodium (Chloride) 50 mls @ 100 mls/hr IV ONCALL ONE Stop: 08/13/19 12:29 Ketamine HCl (Ketalar) 27 mg IV ASDIRECTED [facility] Lidocaine HCl (Xylocaine 2%) 90 mg IVPUSH ASDIRECTED [facility] Lorazepam (Ativan) 0.5 mg IVPUSH Q4H PRN PRN Reason: Nausea/Vomiting Last Admin: 08/13/19 08:57 Dose: 0.5 mg Magnesium Hydroxide (Milk Of Magnesia) 30 ml PO Q12H PRN PRN Reason: Constipation Last Admin: 08/12/19 12:12 Dose: 30 ml Ondansetron HCl (Zofran Odt) 4 mg PO Q6H PRN PRN Reason: Nausea able to take PO Ondansetron HCl (Zofran) 4 mg IV Q6H PRN PRN Reason: Nausea/Vomiting Oxycodone HCl (Oxycodone) 5 - 10 mg PO Q4H PRN PRN Reason: Pain Pantoprazole Sodium (Protonix) 40 mg PO BIDAC QUIN Last Admin: 08/13/19 07:33 Dose: 40 mg Senna/Docusate Sodium (Senna Plus) 1 tab PO BID PRN PRN Reason: Constipation Vitamin B Complex (Vitamin B Complex) 1 each PO DAILY QUIN Last Admin: 08/13/19 10:47 Dose: Not Given Discontinued Medications Bupivacaine HCl (Marcaine 0.5%) Confirm Administered Dose 50 ml .ROUTE .STK-MED ONE Stop: 08/13/19 10:09 Heparin Sodium (Porcine) (Heparin Sodium) 5,000 units IVPUSH ONETIME ONE Stop: 08/11/19 16:16 Last Admin: 08/11/19 17:44 Dose: 5,000 units Heparin Sodium (Porcine) (Heparin Lock Flush 100 Units/Ml) Confirm Administered Dose 1,500 units .ROUTE .STK-MED ONE Stop: 08/13/19 10:09 Sodium Chloride (Normal Saline) 1,000 mls @ 999 mls/hr IV .BOLUS STA Stop: 08/11/19 13:48 Last Admin: 08/11/19 13:49 Dose: 999 mls/hr Sodium Chloride (Normal Saline) 71 mls @ 0 mls/hr IV ASDIRECTED QUIN Stop: 08/11/19 13:01 Last Admin: 08/11/19 13:41 Dose: 3 mls/hr Heparin Sodium/Dextrose (Heparin 25,000 Units In D5w 500 Ml) 25,000 units in 500 mls @ 24.732 mls/hr IV TITRATE QUIN; Protocol Stop: 08/13/19 06:00 Last Titration: 08/13/19 05:12 Dose: 10 units/kg/hr, 13.74 mls/hr Multivitamins/Minerals 10 ml/ (Sodium Chloride) 1,010 mls @ 500 mls/hr IV ASDIRECTED ONE Stop: 08/11/19 18:34 Last Admin: 08/11/19 19:20 Dose: 500 mls/hr Iopamidol (Isovue-300 (61%)) 100 ml IV . DIRECTED QUIN Stop: 08/11/19 13:01 Last Admin: 08/11/19 13:41 Dose: 100 ml Lidocaine/Epinephrine (Xylocaine 1% With Epinephrine 1:100,000) Confirm Administered Dose 50 ml .ROUTE .STK-MED ONE Stop: 08/13/19 10:09 Ondansetron HCl (Zofran) 4 mg IVPUSH ONETIME ONE Stop: 08/11/19 12:49 Last Admin: 08/11/19 13:06 Dose: 4 mg Sodium Chloride (Saline Flush) 10 ml FLUSH ONETIME ONE Stop: 08/11/19 12:54 Last Admin: 08/11/19 13:41 Dose: 10 ml - Exam Quality Assessment: No: Supplemental Oxygen General: Alert, Oriented, Cooperative, No Acute Distress Lungs: Normal Respiratory Effort GI/Abdominal Exam: Soft, No Distention Extremities: No Pedal Edema Psy/Mental Status: Alert, Normal Affect Sepsis Event Note - Evaluation Sepsis Screening Result: No Definite Risk - Focused Exam Vital Signs: Vital Signs Temp Pulse Resp BP Pulse Ox 08/13/19 07:00 36.4 C 65 18 104/78 94 L 08/13/19 02:41 36.4 C 65 16 111/70 96 08/12/19 23:01 35.3 C 61 16 107/72 96 Date Exam was Performed: 08/13/19 Time Exam was Performed: 14:19 - Problem List & Annotations (1) Pulmonary embolism on right SNOMED Code(s): 37145669 Code(s): I26.99 - OTHER PULMONARY EMBOLISM WITHOUT ACUTE COR PULMONALE Status: Acute Current Visit: Yes (2) Fat necrosis of omentum SNOMED Code(s): 725122991 Code(s): K65.4 - SCLEROSING MESENTERITIS Status: Suspected Current Visit : Yes (3) Status post gastric bypass for obesity SNOMED Code(s): 653409007, 014032523, 816443385, 141386708 Code(s): Z98.84 - BARIATRIC SURGERY STATUS Status: Acute Current Visit: No Annotation/Comment:: Removal of band - Problem List Review Problem List Initiated/Reviewed/Updated: Yes - My Orders Last 24 Hours: My Active Orders 08/12/19 Dinner NPO After Midnight [Nothing per Oral After Midnight Diet] [DIET] - Plan Plan:: ASSESSMENT AND PLAN - Fat necrosis/omental infarct, suspected-CT scan showed 8.4 x 4.8 cm heterogenous mass concerning for fat necrosis/infarction. Surgical intervention is planned in the near future. She will be started on TPN after Soria catheter is placed today. -Symptom management -IV fluids -Additional care as per surgical team Right lower lung pulmonary emboli-incidentally noted on CT scan. These are likely chronic and I suspect they may have been there for a month or more based on symptoms. Vital signs are stable. -Heparin drip versus subcutaneous enoxaparin and until surgical intervention -Consider rivaroxaban for longer-term management (15 mg p.o. twice daily x15 days then 20 mg daily) -Plan for 3 to 6 months of treatment Status post gastric bypass surgery-gastric bypass completed in February of this year. Multiple postoperative complications including abscess formation with drainage and small resection. -Multivitamin bag Maintenance issues - - DVT prophylaxis -heparin - GI prophylaxis -PPI - Nutrition -full liquids Active problems are being managed by the surgical team at this point. The hospitalist service will sign off. Please feel free to contact us if you have specific questions or concerns. Manuel Campo M.D.
--- NOTE | 2019-08-13 11:02 | PN ---
DATE OF SERVICE: 08/12/2019 The patient was admitted yesterday with some increasing nausea and vomiting and some abdominal discomfort. Workup showed multiple pulmonary emboli in the right lung area, and she was started on heparin. Additionally, CT scan of the abdomen showed a heterogeneous mass affect, up to about 8 cm, located in the midline around the level of the iliac crest, causing some displacement of the anterior abdominal wall as well as surrounding small bowel. It does not appear to be infected in terms of any air within it and likewise her white count has been normal, and she has been afebrile. The radiologist suggests this might be some omental infarction. This was not clearly evident on a CT scan done in [facility] in [place] in May, but we will get those films and see to what extent this is a new finding. Otherwise, she continues to have problems with the nausea and vomiting over the past several months and nutritionally, still somewhat marginal. So, the plan will be to proceed with an exploratory laparotomy and evacuation of the mass-like focus in the lower abdomen along with insertion of central line to allow some postoperative TPN. To this extent, we were able to do more of a general bowel examination as well to see of there was anything we can do to get rid of her nausea, in addition to the drainage of the mass-like affect that is causing displacement of the small bowel. Her PTT has been quite high on both initially reads, and we are still adjusting the dose and will be getting an idea what her dose requirements are for the heparin before surgery tomorrow, so that we do not run into problems with too high of PTTs that might result in some postoperative bleeding. Potential risks of the procedure were reviewed with the patient and including bleeding, infection, possible injury to the underlying viscera, the likelihood that the procedure tomorrow may not get rid of all of her nausea and that further evaluation might be necessary, were all gone over. The patient wishes to proceed. We will plan a general anesthetic in terms of a TAP block, lidocaine and ketamine infusions, and some meropenem on- call to OR. Erlin Lala MD /[id number]
[2019-08-13] MEDS ORDERED: fentaNYL 100 MCG/2 ML SDV ONE (11:35)
[2019-08-13] MEDS ORDERED: Propofol 200 MG/20 ML SDV ONE (11:35)
[2019-08-13] MEDS ORDERED: Midazolam 1 MG/ML 2 ML SDV ONE (11:36)
[2019-08-13] MEDS ORDERED: Meropenem 500 MG in Sodium Chloride 0.9% 50 ML IV ONE (12:00)
[2019-08-13] MEDS ORDERED: Ropivacaine 35 ML, dexAMETHasone 8 MG, EPINEPHrine 0.4 MG, Sodium Chloride 0.9% 42.6 ML NERVRT SCH ×4 (12:00)
[2019-08-13] MEDS ORDERED: Lidocaine 2% 100 MG/5 ML Syringe IVPUSH SCH (12:00)
[2019-08-13] MEDS ORDERED: Ketamine 50 MG in Sodium Chloride 0.9% 49.5 ML IV SCH (12:00)
[2019-08-13] MEDS ORDERED: Ketamine 500 MG/5 ML MDV IV SCH (12:00)
[2019-08-13] MEDS ORDERED: Lidocaine 0.4%/D5W 2 GM/500 ML BAG IV SCH (12:00)
[2019-08-13] MEDS: Dextrose 5%-Lact Ringers w/KCl 1,000 ML IV SCH (14:37)
[2019-08-13] MEDS: Heparin Sodium/D5W 25,000 UNITS/500 ML BAG IV SCH (15:29)
[2019-08-13] MEDS ORDERED: Dextrose 5%-Lact Ringers w/KCl 1,000 ML IV SCH (16:30)
[2019-08-13] MEDS: 1: AA 5%/Calcium/D15W/Lytes 1,000 ML with MVI, Adult with Vitamin K 10 ML, Chromium/Copp IV SCH ×3 (17:16)
[2019-08-13] MEDS ORDERED: Fat Emulsion 100 ML IV SCH (18:00)
[2019-08-13] MEDS: Fat Emulsion 100 ML IV SCH (23:06)
[2019-08-14] MEDS: 1: AA 5%/Calcium/D15W/Lytes 1,000 ML with MVI, Adult with Vitamin K 10 ML, Chromium/Copp IV SCH ×6 (03:41→13:59)
[2019-08-14] MEDS ORDERED: Iopamidol 612 MG/ML 50 ML SDV PO STA (03:47)
[2019-08-14] MEDS: Pantoprazole 40 MG Tab.CR PO SCH ×2 (07:12→16:20)
[2019-08-14] MEDS ORDERED: Ondansetron 4 MG Tab.DIS PO PRN (08:00)
--- NOTE | 2019-08-14 09:19 | CRLCR ---
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 Findings/Impression: Bowel: Ingested oral contrast flows freely through the gastric bypass, small bowel and into the colon. The GI tract is normal in caliber and appearance. No sign of contrast extravasation to suggest leak. Soft tissues: No sign of free air. No sign of soft tissue mass. No suspicious calcifications. Bones: Unremarkable for age. Dictated by Jr Dos Santos MD @ Aug 14 2019 9:14AM Signed by Dr. Jr Dos Santos @ Aug 14 2019 9:17AM
[2019-08-14] MEDS: Vitamin B Complex Tab PO SCH (09:46)
[2019-08-14] MEDS: Escitalopram 10 MG Tab PO SCH (09:46)
[2019-08-14] MEDS: Scopolamine 1.5 MG Transdermal Patch TOP SCH (09:47)
[2019-08-14] MEDS: Cyanocobalamin (Vitamin B12) 1,000 MCG Tab PO SCH (09:47)
--- NOTE | 2019-08-14 11:31 | PN ---
DATE OF SERVICE: 08/14/2019 Patient has been afebrile with stable vital signs, looks a little bit less anxious today. TPN was started yesterday, and she is tolerating that satisfactory. Blood sugar this morning was 116 with TPN loading. Otherwise, she has had less in the way of nausea. I think we will try giving her a step-3 diet today. Upper GI x-ray and small-bowel follow- through are underway. At this point, she already has dye in the large bowel, and there is no evident dilation of the small bowel at any point along its course. In order to assess whether or not we are dealing with any problems with ulceration or inflammation at or around the gastrojejunostomy, we do an upper endoscopy tomorrow. If we are able to control the nausea and re-established adequate oral intake, we may not need to do exploratory laparotomy, as she really does not have any tenderness in the lower abdomen where the mass effect is identified. This is probably some necrotic omentum or something trever to that, that does not necessarily need to be operatively removed. Will continue the TPN. Sodium is slightly low today and potassium marginally low at 3.9. We will increase the sodium chloride and potassium acetate content. We will need to watch the phosphate for any refeeding syndrome. Phosphate this morning is 4.5. I plan to proceed with upper endoscopy tomorrow. I do not think we will need to hold heparin prior to that, and otherwise, add scopolamine patch and change Zofran to ODT form to see if we can get a medical management that would allow her to eat without significant nausea. Her hemoglobin this morning is 8.7, and we will give her 1 unit of packed RBCs. Erlin Lala MD /[id number]
[2019-08-14] MEDS: LORazepam 2 MG/ML SDV IVPUSH PRN ×2 (11:47→20:16)
[2019-08-15] MEDS: 1: AA 5%/Calcium/D15W/Lytes 1,000 ML with MVI, Adult with Vitamin K 10 ML, Chromium/Copp IV SCH ×9 (00:25→20:29)
[2019-08-15] MEDS: Fat Emulsion 100 ML IV SCH ×2 (00:25→22:21)
[2019-08-15] MEDS: Heparin Sodium/D5W 25,000 UNITS/500 ML BAG IV SCH (00:26)
--- NOTE | 2019-08-15 05:08 | CRLCR ---
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 Follow-up upper GI. COMPARISON: Limited upper GI examination from yesterday at 0634 hours FINDINGS: Erect examination of the abdomen was performed at 0409 hours. Again seen is a line of surgical yola in the area of the gastric cardia consistent with gastric bypass surgery. There has been appropriate passage of the ingested oral contrast into the colon, distributed from the cecum through the rectum. There is no sign of any extravasation of oral contrast. The bowel gas pattern is unremarkable with nothing seen to suggest obstruction or ileus. There is no sign of dilatation of the small bowel or colon. There is no free air. Soft tissue planes are preserved and there is no sign of a mass. No calcifications of concern are identified. The osseous structures are normal in appearance for the patient`s age. The lung bases remain clear. IMPRESSION: Appropriate passage of previously ingested oral contrast from the small bowel into the colon. No sign of obstruction or ileus. No sign of any extravasation of contrast or free air. Dictated by Jackson Arredondo MD @ Aug 15 2019 5:04AM Signed by Dr. Jackson Arredondo @ Aug 15 2019 5:08AM
[2019-08-15] MEDS ORDERED: fentaNYL 100 MCG/2 ML SDV ONE (07:12)
[2019-08-15] MEDS ORDERED: Propofol 200 MG/20 ML SDV ONE (07:12)
[2019-08-15] MEDS ORDERED: Midazolam 1 MG/ML 2 ML SDV ONE (07:12)
[2019-08-15] MEDS ORDERED: Sodium Chloride 0.9% 10 ML ONE (07:58)
[2019-08-15] MEDS: Pantoprazole 40 MG Tab.CR PO SCH ×2 (08:27→16:58)
--- NOTE | 2019-08-15 08:56 | OR ---
DATE OF PROCEDURE: 08/15/2019 SURGEON: Erlin Lala MD PREOPERATIVE DIAGNOSIS: Persistent nausea. POSTOPERATIVE DIAGNOSIS: Persistent nausea with very minimal (2 mm) marginal ulcer. OPERATIVE PROCEDURE: Upper gastrointestinal endoscopy. ANESTHESIA: IV sedation. INDICATION FOR PROCEDURE: The patient has been admitted for some persistent nausea. In the past, she has had problems with inflammation and ulceration at her gastrojejunostomy and gastric pouch. To evaluate that issue, the patient is to undergo an upper endoscopy with biopsies and/or dilation as indicated. Potential risks including bleeding and perforation were discussed, and the patient wishes to proceed. DETAILS OF PROCEDURE: The patient was taken to the operating room and placed in a left lateral decubitus position. IV sedation was administered, after which the upper GI endoscope was passed orally through the length of the esophagus and into the gastric pouch and through the gastrojejunostomy roughly 20 cm into the Ruperto limb. Findings overall appeared to be essentially normal. The previous generalized inflammation present in the pouch gastrojejunostomy was absent. There was one, perhaps 2 mm, area of probable ulceration in the very proximal jejunum adjacent to the gastrojejunostomy. This measured only around 2 mm and was covered with some white fibrinous exudate. Photographs were obtained. At this point, the scope was withdrawn and the procedure then concluded. The findings at this point would not likely be causing the patient's nausea. Erlin Lala MD /[id number]
--- NOTE | 2019-08-15 09:04 | PN ---
DATE OF SERVICE: 08/15/2019 The patient has been afebrile with stable vital signs. She has become nauseated after being started on a step-3 diet yesterday, but we are going back to a step-2 or more of a full- liquid diet, as she was able to maintain oral intake of around 420 mL. The upper endoscopy today showed things to be generally soft and supple in terms of the area of the gastric pouch and gastrojejunostomy. There was one tiny area covered with some fibrinous exudate, which probably has, perhaps, 2 mm underlying marginal ulcer. This is unlikely to be causing the patient's nausea. Today, we will go with full liquid diet and then have the patient work on protein drinks. We will have Dietary see the patient tomorrow and Tuesday. I will also have Dr. Campo evaluate the patient to see if there is any additional ideas regarding the nausea, and we will otherwise continue the present TPN. Her labs are improved in terms of protein levels and such. The patient's heparin was slightly subtherapeutic today, later it was bumped up, but we will probably begin coumadinizing the patient tomorrow. At this point, I do not think we need to proceed with anything operatively as the transit through the small bowel was very rapid, and there were no areas that were dilated or in any way suggestive of a partial obstruction or ileus. Erlin Lala MD /[id number]
[2019-08-15] MEDS: Vitamin B Complex Tab PO SCH (09:50)
[2019-08-15] MEDS: SCOPOLAMINE PATCH CHECK TOP SCH (09:50)
[2019-08-15] MEDS: Cyanocobalamin (Vitamin B12) 1,000 MCG Tab PO SCH (09:50)
[2019-08-15] MEDS: Escitalopram 10 MG Tab PO SCH (09:50)
--- NOTE | 2019-08-15 17:21 | PCM.CONS ---
H&P History of Present Illness - General Date of Service: 08/15/19 Admit Problem/Dx: Admission Diagnosis/Problem Admission Diagnosis/Problem Pulmonary embolism on right Source of Information: Patient, Family, Provider, RN Notes Reviewed History Limitations: Reports: No Limitations - History of Present Illness Initial Comments - Free Text/Narative: Ms. Ortiz is a 59-year-old woman who I have been asked to see by Dr. Lala for recommendations concerning further evaluation and management of persistent nausea and vomiting. She underwent a gastric sleeve procedure done this past summer, complicated by bowel obstruction requiring 2 additional surgeries. She has had ongoing intermittent difficulty with nausea that is become worse over the past month and significantly worse over the past week. She readily admits that she is developed some food aversions, where just the site of certain foods or supplements makes her feel nauseated. She also experiences nausea sometimes about 1/2-hour to an hour after eating. Upper GI endoscopy was performed and showed no obvious potential cause of her current symptoms. CT scan of the abdomen obtained on admission shows an area of potential omental or fat necrosis. No other significant abnormalities were identified. Upper GI x-ray with small bowel follow-through showed no evidence of obstruction. 1 Pain Score (Numeric/FACES): 0 - Related Data Allergies/Adverse Reactions: Allergies Allergy/AdvReac Type Severity Reaction Status Date / Time Penicillins Allergy Rash Verified 08/11/19 17:53 Home Medications: Home Meds Ondansetron [Zofran ODT] 4 mg PO Q6H PRN #30 tab.dis 03/07/19 [Rx] Cyanocobalamin (Vitamin B12) [Vitamin B12] 1,000 mcg PO DAILY 04/06/19 [History] Multivitamin with Minerals [Multiple Vitamin] 1 tab PO DAILY 04/06/19 [History] Vitamin B Complex 1 each PO DAILY 04/06/19 [History] Escitalopram Oxalate 1 tab PO DAILY 08/11/19 [History] Potassium Chloride In 0.9%NaCl [Potassium Cl Conc 20 Meq/20 ml] 15 ml PO DAILY 08/11/19 [History] Past Medical History HEENT History: Reports: Other (See Below) Other HEENT History: wears glasses Cardiovascular History: Reports: Blood Clots/VTE/DVT, High Cholesterol, Hypertension, Other (See Below) Other Cardiovascular History: 2009 angiogram showed "small blockage" - 2018 recheck showed no change in blockage Respiratory History: Reports: PE Gastrointestinal History: Reports: Bowel Obstruction, Colon Polyp, Irritable Bowel Syndrome Genitourinary History: Reports: None 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: , Other (See Below) Other OB/BYN History: ovarian cysts Musculoskeletal History: Reports: Arthritis, Gout Neurological History: Reports: Concussion Psychiatric History: Reports: Anxiety Endocrine/Metabolic History: Reports: Obesity/BMI 30+ Hematologic History: Reports: B12 Deficiency - Infectious Disease History Infectious Disease History: Reports: Chicken Pox - Past Surgical History HEENT Surgical History: Reports: Oral Surgery, Other (See Below) Other HEENT Surgeries/Procedures: wisdom teeth removed Cardiovascular Surgical History: Reports: Other (See Below) Other Cardiovascular Surgeries/Procedures: angiogram Respiratory Surgical History: Reports: None GI Surgical History: Reports: Appendectomy, Bariatric Procedure, Colon, Colonoscopy, EGD, Hernia Repair/Other, Small Bowel, Other (See Below) Other GI Surgeries/Procedures: Lap Band 12 years ago. 7-15 removal lap band with RNY gastric bypass Female Surgical History: Reports: Section, Hysterectomy, Salpingo- Oophorectomy Endocrine Surgical History: Reports: None Neurological Surgical History: Reports: None Musculoskeletal Surgical History: Reports: None Dermatological Surgical History: Reports: None Social & Family History - Family History Family Medical History: Noncontributory Cardiac: Reports: IN - Tobacco Use Smoking Status *Q: Never Smoker Second Hand Smoke Exposure: No - Caffeine Use Caffeine Use: Reports: None - Recreational Drug Use Recreational Drug Use: No H&P Review of Systems - Review of Systems: Review Of Systems: See Below Pulmonary: Reports: No Symptoms Cardiovascular: Reports: No Symptoms Gastrointestinal: Reports: Anorexia, Diarrhea, Decreased Appetite, Nausea, Vomiting. Denies: Abdominal Pain, Black Stool, Bloody Stool, Constipation, Difficulty Swallowing, Distension Genitourinary: Reports: No Symptoms Musculoskeletal: Reports: No Symptoms Exam - Exam Exam: See Below - Vital Signs Vital Signs: Last Vital Signs Temp 96.8 F 08/15/19 15:00 Pulse 61 08/15/19 15:00 Resp 16 08/15/19 15:00 BP 134/85 08/15/19 15:00 Pulse Ox 97 08/15/19 15:00 Weight: 153 lb 3.2 oz - Exam Lungs: Clear to Auscultation, Normal Respiratory Effort Cardiovascular: Regular Rate, Regular Rhythm, Normal S1, Normal S2. No: Systolic Murmur, Diastolic Murmur GI/Abdominal Exam: Soft, Non-Tender, No Organomegaly, No Distention Back Exam: Normal Inspection, Full Range of Motion Extremities: Non-Tender, No Pedal Edema - Patient Data Lab Results Last 24 hrs: Laboratory Results - last 24 hr 08/15/19 08/15/19 08/15/19 Range/Units 04:44 04:44 04:44 WBC 9.1 (4.5-11.0) K/uL RBC 2.88 L (3.30-5.50) M/uL Hgb 9.1 L (12.0-15.0) g/dL Hct 28.9 L (36.0-48.0) % MCV 100 H (80-98) fL MCH 32 H (27-31) pg MCHC 32 (32-36) % Plt Count 211 (150-400) K/uL Neut % (Auto) 66 (36-66) % Lymph % (Auto) 22 L (24-44) % [place] % (Auto) 11 H (2-6) % Eos % (Auto) 1 L (2-4) % Baso % (Auto) 0 (0-1) % APTT 47.4 H (27.0-36.0) sec Sodium 140 (140-148) mmol/L Potassium 4.0 (3.6-5.2) mmol/L Chloride 106 (100-108) mmol/L Carbon Dioxide 26 (21-32) mmol/L Anion Gap 8.3 (5.0-14.0) mmol/L BUN 20 H D (7-18) mg/dL Creatinine 0.7 (0.6-1.0) mg/dL Est Cr Clr Drug Dosing 75.27 mL/min Estimated GFR (MDRD) > 60 (>60) Glucose 107 H (74-106) mg/dL Calcium 8.2 L (8.5-10.1) mg/dL Phosphorus 4.4 (2.5-4.9) mg/dL Magnesium 2.2 (1.8-2.4) mg/dL Total Bilirubin 0.5 D (0.2-1.0) mg/dL AST 8 L (15-37) U/L ALT 15 (12-78) U/L Alkaline Phosphatase 72 (46-116) U/L Total Protein 5.3 L (6.4-8.2) g/dL Albumin 2.6 L (3.4-5.0) g/dL Globulin 2.7 (2.3-3.5) g/dL Albumin/Globulin Ratio 1.0 L (1.2-2.2) 08/15/19 Range/Units 11:55 WBC (4.5-11.0) K/uL RBC (3.30-5.50) M/uL Hgb (12.0-15.0) g/dL Hct (36.0-48.0) % MCV (80-98) fL MCH (27-31) pg MCHC (32-36) % Plt Count (150-400) K/uL Neut % (Auto) (36-66) % Lymph % (Auto) (24-44) % [place] % (Auto) (2-6) % Eos % (Auto) (2-4) % Baso % (Auto) (0-1) % APTT 49.6 H (27.0-36.0) sec Sodium (140-148) mmol/L Potassium (3.6-5.2) mmol/L Chloride (100-108) mmol/L Carbon Dioxide (21-32) mmol/L Anion Gap (5.0-14.0) mmol/L BUN (7-18) mg/dL Creatinine (0.6-1.0) mg/dL Est Cr Clr Drug Dosing mL/min Estimated GFR (MDRD) (>60) Glucose (74-106) mg/dL Calcium (8.5-10.1) mg/dL Phosphorus (2.5-4.9) mg/dL Magnesium (1.8-2.4) mg/dL Total Bilirubin (0.2-1.0) mg/dL AST (15-37) U/L ALT (12-78) U/L Alkaline Phosphatase (46-116) U/L Total Protein (6.4-8.2) g/dL Albumin (3.4-5.0) g/dL Globulin (2.3-3.5) g/dL Albumin/Globulin Ratio (1.2-2.2) Result Diagrams: 08/15/19 04:44 08/15/19 04:44 Sepsis Event Note - Evaluation Sepsis Screening Result: No Definite Risk - Focused Exam Vital Signs: Vital Signs Temp Pulse Resp BP Pulse Ox 08/15/19 15:00 96.8 F 61 16 134/85 97 08/15/19 11:52 98.1 F 71 18 124/88 97 08/15/19 10:39 97.9 F 77 18 113/78 96 08/15/19 09:55 66 16 140/89 97 08/15/19 09:21 96.9 F 61 16 119/82 95 08/15/19 09:06 56 L 16 116/73 94 L 08/15/19 08:50 57 L 16 117/81 94 L 08/15/19 08:35 63 16 125/82 94 L 08/15/19 08:20 98.2 F 63 16 120/84 92 L Date Exam was Performed: 08/15/19 Time Exam was Performed: 17:31 Consult PN Assessment/Plan Procedures: Procedures BLOOD TYPING SEROLOGIC ABO (12/14/18) BLOOD TYPING SEROLOGIC RH(D) (12/14/18) CULTURE OTHR SPECIMN AEROBIC (03/19/19) CULTURE SCREEN ONLY (12/15/18) EGD BIOPSY SINGLE/MULTIPLE (12/15/18) EGD DIAGNOSTIC BRUSH WASH (05/18/19) EMERGENCY DEPT VISIT (04/15/19) HYDRATE IV INFUSION ADD-ON (04/15/19) RBC ANTIBODY SCREEN (12/14/18) SMEAR GRAM STAIN (03/19/19) THER/PROPH/DIAG IV INF ADDON (05/16/19) THER/PROPH/DIAG IV INF INIT (05/16/19) TX/PRO/DX INJ NEW DRUG ADDON (05/16/19) Problem List Initiated/Reviewed/Updated: Yes My Orders Last 24 Hours: My Active Orders 08/15/19 12:13 Ready for Discharge [RC] PER UNIT ROUTINE 08/15/19 17:14 PTT,PARTIAL THROMBOPLSTIN TIME [COAG] Routine 08/16/19 08:00 Cholescintigraphy w Pharm Int [NM] Urgent Plan: ASSESSMENT AND RECOMMENDATIONS PERSISTENT NAUSEA AND VOMITING-Ms. Ortiz has had ongoing difficulty with nausea vomiting over the past few months, worse in the past month, significantly worse over the past week. She is status post gastric sleeve procedure done this past summer, complicated by bowel obstruction requiring 2 further surgeries. She was admitted because of weakness and dehydration with poor oral intake. CT scan of the abdomen pelvis obtained at the time of admission showed evidence of possible fat necrosis versus omental infarction. Upper GI x-ray with small bowel follow-through showed no evidence of obstruction. EGD performed by Dr. Lala showed no obvious cause of current symptoms. Possible that the area of potential fat necrosis could be contributing to ongoing nausea and anorexia. She does still have her gallbladder and this is a another potential source of ongoing symptoms. -CCK stimulated HIDA scan in a.m. Requesting Provider: LINDA Date Consult Requested: 08/15/19
[2019-08-15] MEDS: LORazepam 2 MG/ML SDV IVPUSH PRN (22:21)
[2019-08-16] MEDS: Heparin Sodium/D5W 25,000 UNITS/500 ML BAG IV SCH (04:26)
[2019-08-16] MEDS: 1: AA 5%/Calcium/D15W/Lytes 1,000 ML with MVI, Adult with Vitamin K 10 ML, Chromium/Copp IV SCH ×6 (06:04→14:54)
[2019-08-16] MEDS: Cyanocobalamin (Vitamin B12) 1,000 MCG Tab PO SCH (09:45)
[2019-08-16] MEDS: Vitamin B Complex Tab PO SCH (09:45)
[2019-08-16] MEDS: Pantoprazole 40 MG Tab.CR PO SCH ×2 (09:45→15:55)
[2019-08-16] MEDS: Escitalopram 10 MG Tab PO SCH (09:45)
[2019-08-16] MEDS: SCOPOLAMINE PATCH CHECK TOP SCH (09:46)
--- NOTE | 2019-08-16 11:24 | CRLNM ---
INDICATION: Chronic nausea. History of Ruperto-en-Y gastric bypass surgery. TECHNIQUE: 5.2 mCi Tc-99m labeled Mebrofenin. 1.4 mcg CCK IV. FINDINGS: There is normal uptake and excretion of tracer by the liver. Activity is identified within the gallbladder and the extrahepatic biliary tree within 10 minutes after injection. No biliary leak. After the administration of CCK, the gallbladder ejection fraction is calculated at 93% which is within normal limits. IMPRESSION: 1. Normal HIDA scan. 2. Normal gallbladder ejection fraction of 93%. Dictated by Meet Bishop MD @ Aug 16 2019 11:13AM (Electronically Signed)
--- NOTE | 2019-08-16 17:11 | PCM.CONSN ---
- General Info Date of Service: 08/16/19 Subjective Update: Ms. Ortiz has been stable over the last 24 hours, good vital signs and no significant temperature elevation. CCK stimulated HIDA scan was negative for cholecystitis, excellent ejection fraction of 93%. Oral intake seems to be stable and she is doing well with her current protein supplements. Functional Status: Reports: Pain Controlled, Tolerating Diet, Ambulating, Urinating - Review of Systems General: Reports: Weakness. Denies: Fever, Chills Pulmonary: Reports: No Symptoms Cardiovascular: Reports: No Symptoms Gastrointestinal: Reports: Decreased Appetite, Nausea. Denies: Constipation, Difficulty Swallowing, Vomiting - Patient Data Vitals - Most Recent: Last Vital Signs Temp 97.3 F 08/16/19 14:40 Pulse 69 08/16/19 14:40 Resp 16 08/16/19 14:40 BP 138/94 H 08/16/19 14:40 Pulse Ox 94 L 08/16/19 14:40 Weight - Most Recent: 153 lb 3.2 oz I&O - Last 24 Hours: Intake & Output 08/16/19 08/16/19 08/16/19 06:59 14:59 22:59 Intake Total 2352 773 1441 Output Total 1100 300 Balance 2352 -327 1141 Lab Results Last 24 Hours: Laboratory Results - last 24 hr 08/13/19 08/15/19 08/15/19 Range/Units 04:10 17:14 22:50 WBC (4.5-11.0) K/uL RBC (3.30-5.50) M/uL Hgb (12.0-15.0) g/dL Hct (36.0-48.0) % MCV (80-98) fL MCH (27-31) pg MCHC (32-36) % Plt Count (150-400) K/uL APTT 63.5 H 69.5 H (27.0-36.0) sec Sodium (140-148) mmol/L Potassium (3.6-5.2) mmol/L Chloride (100-108) mmol/L Carbon Dioxide (21-32) mmol/L Anion Gap (5.0-14.0) mmol/L BUN (7-18) mg/dL Creatinine (0.6-1.0) mg/dL Est Cr Clr Drug Dosing mL/min Estimated GFR (MDRD) (>60) Glucose (74-106) mg/dL Calcium (8.5-10.1) mg/dL Phosphorus (2.5-4.9) mg/dL Magnesium (1.8-2.4) mg/dL Total Bilirubin (0.2-1.0) mg/dL AST (15-37) U/L ALT (12-78) U/L Alkaline Phosphatase (46-116) U/L Total Protein (6.4-8.2) g/dL Albumin (3.4-5.0) g/dL Globulin (2.3-3.5) g/dL Albumin/Globulin Ratio (1.2-2.2) Blood Type A NEGATIVE Gel Antibody Screen Negative Crossmatch See Detail 08/16/19 08/16/19 08/16/19 Range/Units 04:10 04:10 04:10 WBC 9.8 (4.5-11.0) K/uL RBC 2.88 L (3.30-5.50) M/uL Hgb 9.4 L (12.0-15.0) g/dL Hct 29.1 L (36.0-48.0) % MCV 101 H (80-98) fL MCH 33 H (27-31) pg MCHC 32 (32-36) % Plt Count 212 (150-400) K/uL APTT 61.1 H (27.0-36.0) sec Sodium 140 (140-148) mmol/L Potassium 4.1 (3.6-5.2) mmol/L Chloride 106 (100-108) mmol/L Carbon Dioxide 26 (21-32) mmol/L Anion Gap 8.3 (5.0-14.0) mmol/L BUN 23 H (7-18) mg/dL Creatinine 0.7 (0.6-1.0) mg/dL Est Cr Clr Drug Dosing 75.27 mL/min Estimated GFR (MDRD) > 60 (>60) Glucose 118 H (74-106) mg/dL Calcium 8.4 L (8.5-10.1) mg/dL Phosphorus 3.5 (2.5-4.9) mg/dL Magnesium 2.3 (1.8-2.4) mg/dL Total Bilirubin 0.4 (0.2-1.0) mg/dL AST 9 L (15-37) U/L ALT 13 (12-78) U/L Alkaline Phosphatase 67 (46-116) U/L Total Protein 5.6 L (6.4-8.2) g/dL Albumin 3.0 L (3.4-5.0) g/dL Globulin 2.6 (2.3-3.5) g/dL Albumin/Globulin Ratio 1.2 (1.2-2.2) Blood Type Gel Antibody Screen Crossmatch Med Orders - Current: Current Medications Acetaminophen (Tylenol) 650 mg PO Q4H PRN PRN Reason: Pain (Mild 1-3)/fever Apixaban (Eliquis) 10 mg PO Q12H [facility] Stop: 08/23/19 07:01 Apixaban (Eliquis) 5 mg PO Q12H [facility] Cyanocobalamin (Vitamin B12) 1,000 mcg PO DAILY [facility] Last Admin: 08/16/19 09:45 Dose: 1,000 mcg Escitalopram Oxalate (Lexapro) 5 mg PO DAILY [facility] Last Admin: 08/16/19 09:45 Dose: 5 mg Hydromorphone HCl (Dilaudid) 0.5 mg IVPUSH Q2H PRN PRN Reason: Pain (severe 7-10) Potassium Cl/Dextrose/Lact Ringer's (D5 Lr With 20 Meq Kcl) 1,000 mls @ 25 mls/ hr IV ASDIRECTED [facility] Albumin Human (Albumin 25%) 25 gm in 100 mls @ 25 mls/hr IV Q24H [facility] Stop: 08/18/19 18:29 Last Admin: 08/16/19 14:53 Dose: 25 mls/hr Albumin Human (Albumin 25%) 25 gm in 100 mls @ 25 mls/hr IV Q24H [facility] Stop: 08/18/19 22:29 Last Admin: 08/15/19 18:27 Dose: 25 mls/hr Fat Emulsion Intravenous (Intralipid 20%) 100 mls @ 8.3 mls/hr IV Q24H [facility] Last Admin: 08/15/19 22:21 Dose: 8.3 mls/hr Multivitamins/Minerals 10 ml/Chromium/Copper/Manganese/Seleni/Zn 1 ml/ Amino Ac/ Electrol/Dextrose/Calcium 1,011 mls @ 100 mls/hr IV .BY DURATION [facility] Last Admin: 08/15/19 20:29 Dose: 100 mls/hr Amino Ac/Electrol/Dextrose/Calcium (Clinimix E 01/03) 1,000 mls @ 100 mls/hr IV .BY DURATION [facility] Last Admin: 08/16/19 14:54 Dose: 100 mls/hr Lorazepam (Ativan) 0.5 mg IVPUSH Q4H PRN PRN Reason: Nausea/Vomiting Last Admin: 08/15/19 22:21 Dose: 0.5 mg Magnesium Hydroxide (Milk Of Magnesia) 30 ml PO Q12H PRN PRN Reason: Constipation Last Admin: 08/12/19 12:12 Dose: 30 ml Scopolamine Patch (Check) 1 each TOP DAILY [facility] Last Admin: 08/16/19 09:46 Dose: Not Given Ondansetron HCl (Zofran Odt) 4 mg PO Q4H PRN PRN Reason: Nausea able to take PO Oxycodone HCl (Oxycodone) 5 - 10 mg PO Q4H PRN PRN Reason: Pain Pantoprazole Sodium (Protonix) 40 mg PO BIDAC [facility] Last Admin: 08/16/19 15:55 Dose: 40 mg Scopolamine (Transderm-Scop) 1.5 mg TOP Q72H [facility] Last Admin: 08/14/19 09:47 Dose: 1.5 mg Senna/Docusate Sodium (Senna Plus) 1 tab PO BID PRN PRN Reason: Constipation Vitamin B Complex (Vitamin B Complex) 1 each PO DAILY [facility] Last Admin: 08/16/19 09:45 Dose: 1 each Discontinued Medications Bupivacaine HCl (Marcaine 0.5%) Confirm Administered Dose 50 ml .ROUTE .STK-MED ONE Stop: 08/13/19 10:09 Last Admin: 08/13/19 12:08 Dose: 7.5 ml Fentanyl (Sublimaze) Confirm Administered Dose 100 mcg .ROUTE .STK-MED ONE Stop: 08/13/19 11:36 Fentanyl (Sublimaze) Confirm Administered Dose 100 mcg .ROUTE .STK-MED ONE Stop: 08/15/19 07:13 Heparin Sodium (Porcine) (Heparin Sodium) 5,000 units IVPUSH ONETIME ONE Stop: 08/11/19 16:16 Last Admin: 08/11/19 17:44 Dose: 5,000 units Heparin Sodium (Porcine) (Heparin Lock Flush 100 Units/Ml) Confirm Administered Dose 1,500 units .ROUTE .STK-MED ONE Stop: 08/13/19 10:09 Last Admin: 08/13/19 12:05 Dose: 1,500 units Sodium Chloride (Normal Saline) 1,000 mls @ 999 mls/hr IV .BOLUS STA Stop: 08/11/19 13:48 Last Admin: 08/11/19 13:49 Dose: 999 mls/hr Sodium Chloride (Normal Saline) 71 mls @ 0 mls/hr IV ASDIRECTED [facility] Stop: 08/11/19 13:01 Last Admin: 08/11/19 13:41 Dose: 3 mls/hr Heparin Sodium/Dextrose (Heparin 25,000 Units In D5w 500 Ml) 25,000 units in 500 mls @ 24.732 mls/hr IV TITRATE [facility]; Protocol Stop: 08/13/19 06:00 Last Titration: 08/13/19 05:12 Dose: 10 units/kg/hr, 13.74 mls/hr Potassium Cl/Dextrose/Lact Ringer's (D5 Lr With 20 Meq Kcl) 1,000 mls @ 75 mls/ hr IV ASDIRECTED [facility] Stop: 08/13/19 16:15 Last Admin: 08/13/19 14:37 Dose: 75 mls/hr Multivitamins/Minerals 10 ml/ (Sodium Chloride) 1,010 mls @ 500 mls/hr IV ASDIRECTED ONE Stop: 08/11/19 18:34 Last Admin: 08/11/19 19:20 Dose: 500 mls/hr Heparin Sodium/Dextrose (Heparin 25,000 Units In D5w 500 Ml) 25,000 units in 500 mls @ 13.74 mls/hr IV TITRATE [facility]; Protocol Last Admin: 08/16/19 04:26 Dose: 14 units/kg/hr, 19.236 mls/hr Multivitamins/Minerals 10 ml/Chromium/Copper/Manganese/Seleni/Zn 1 ml/ Amino Ac/ Electrol/Dextrose/Calcium 1,011 mls @ 100 mls/hr IV .BY DURATION [facility] Stop: 08/14/19 12:00 Last Admin: 08/13/19 17:16 Dose: 100 mls/hr Amino Ac/Electrol/Dextrose/Calcium (Clinimix E 5/15) 1,000 mls @ 100 mls/hr IV .BY DURATION [facility] Stop: 08/14/19 12:00 Last Admin: 08/14/19 03:41 Dose: 100 mls/hr Sodium Chloride (Normal Saline) Confirm Administered Dose 10 mls @ as directed .ROUTE .STK-MED ONE Stop: 08/15/19 07:59 Iopamidol (Isovue-300 (61%)) 100 ml IV . DIRECTED [facility] Stop: 08/11/19 13:01 Last Admin: 08/11/19 13:41 Dose: 100 ml Iopamidol (Isovue-300 (61%)) 50 ml PO ASDIRECTED [facility] Stop: 08/14/19 03:48 Last Admin: 08/14/19 04:20 Dose: 50 ml Lidocaine/Epinephrine (Xylocaine 1% With Epinephrine 1:100,000) Confirm Administered Dose 50 ml .ROUTE .STK-MED ONE Stop: 08/13/19 10:09 Last Admin: 08/13/19 12:08 Dose: 7.5 ml Midazolam HCl (Versed 1 Mg/Ml) Confirm Administered Dose 2 mg .ROUTE .STK-MED ONE Stop: 08/13/19 11:37 Midazolam HCl (Versed 1 Mg/Ml) Confirm Administered Dose 2 mg .ROUTE .STK-MED ONE Stop: 08/15/19 07:13 Ondansetron HCl (Zofran) 4 mg IVPUSH ONETIME ONE Stop: 08/11/19 12:49 Last Admin: 08/11/19 13:06 Dose: 4 mg Ondansetron HCl (Zofran Odt) 4 mg PO Q6H PRN PRN Reason: Nausea able to take PO Ondansetron HCl (Zofran) 4 mg IV Q6H PRN PRN Reason: Nausea/Vomiting Propofol (Diprivan 20 Ml) Confirm Administered Dose 200 mg .ROUTE .STK-MED ONE Stop: 08/13/19 11:36 Propofol (Diprivan 20 Ml) Confirm Administered Dose 200 mg .ROUTE .STK-MED ONE Stop: 08/15/19 07:13 Sodium Chloride (Saline Flush) 10 ml FLUSH ONETIME ONE Stop: 08/11/19 12:54 Last Admin: 08/11/19 13:41 Dose: 10 ml - Exam Quality Assessment: DVT Prophylaxis General: Alert, Oriented, Cooperative, Mild Distress Lungs: Clear to Auscultation, Normal Respiratory Effort Cardiovascular: Regular Rate, Regular Rhythm, No Murmurs GI/Abdominal Exam: Soft, Non-Tender, No Organomegaly, No Distention Extremities: Non-Tender, No Pedal Edema Sepsis Event Note - Evaluation Sepsis Screening Result: No Definite Risk - Focused Exam Vital Signs: Vital Signs Temp Temp Pulse Pulse Resp BP Pulse Ox 08/16/19 14:40 97.3 F 69 16 138/94 H 94 L 08/16/19 14:15 97.3 F 69 16 138/94 H 94 L 08/16/19 14:02 97.2 F 68 15 115/74 93 L 08/16/19 13:35 97.2 F 76 16 113/74 94 L 08/16/19 13:05 96.8 F 71 16 118/84 96 08/16/19 12:30 96.8 F 68 16 140/89 95 08/16/19 12:15 96.8 F 70 16 129/87 98 08/16/19 12:00 96.8 F 72 16 134/93 H 98 08/16/19 11:47 97.5 F 65 16 140/87 98 08/16/19 10:54 96.9 F 62 18 117/76 98 08/16/19 07:00 97.4 F 69 18 124/85 95 Date Exam was Performed: 08/16/19 Time Exam was Performed: 17:07 Consult PN Assessment/Plan Procedures: Procedures BLOOD TYPING SEROLOGIC ABO (12/14/18) BLOOD TYPING SEROLOGIC RH(D) (12/14/18) CULTURE OTHR SPECIMN AEROBIC (03/19/19) CULTURE SCREEN ONLY (12/15/18) EGD BIOPSY SINGLE/MULTIPLE (12/15/18) EGD DIAGNOSTIC BRUSH WASH (05/18/19) EMERGENCY DEPT VISIT (04/15/19) HYDRATE IV INFUSION ADD-ON (04/15/19) RBC ANTIBODY SCREEN (12/14/18) SMEAR GRAM STAIN (03/19/19) THER/PROPH/DIAG IV INF ADDON (05/16/19) THER/PROPH/DIAG IV INF INIT (05/16/19) TX/PRO/DX INJ NEW DRUG ADDON (05/16/19) Problem List Initiated/Reviewed/Updated: Yes My Orders Last 24 Hours: My Active Orders 08/23/19 19:00 Apixaban [Eliquis] 5 mg PO Q12H 08/16/19 19:00 Apixaban [Eliquis] 10 mg PO Q12H Plan: ASSESSMENT AND RECOMMENDATIONS PERSISTENT NAUSEA AND VOMITING-CK stimulated HIDA scan showed a normal ejection fraction. She has been doing relatively well with current diet and protein supplements. -Continue current management per Dr. Lala PULMONARY EMBOLISM-stable with adequate oxygenation, ambulating in the hallways. No further surgery anticipated and will plan to transition to oral anticoagulation -Discontinue IV heparin -Eliquis 10 mg twice daily for 7 days, then 5 mg twice daily thereafter for 6 months
[2019-08-16] MEDS: Apixaban 5 MG Tab PO SCH (20:06)
[2019-08-16] MEDS: LORazepam 2 MG/ML SDV IVPUSH PRN (22:18)
[2019-08-16] MEDS: Fat Emulsion 100 ML IV SCH (22:19)
[2019-08-17] MEDS: 1: AA 5%/Calcium/D15W/Lytes 1,000 ML with MVI, Adult with Vitamin K 10 ML, Chromium/Copp IV SCH ×3 (04:28)
[2019-08-17] MEDS: Apixaban 5 MG Tab PO SCH (07:51)
[2019-08-17] MEDS: Pantoprazole 40 MG Tab.CR PO SCH (07:51)
[2019-08-17] MEDS: Scopolamine 1.5 MG Transdermal Patch TOP SCH (08:11)
[2019-08-17] MEDS: Escitalopram 10 MG Tab PO SCH (08:11)
[2019-08-17] MEDS: Cyanocobalamin (Vitamin B12) 1,000 MCG Tab PO SCH (08:12)
[2019-08-17] MEDS: SCOPOLAMINE PATCH CHECK TOP SCH (08:12)
[2019-08-17] MEDS: Vitamin B Complex Tab PO SCH (08:12)
--- NOTE | 2019-08-18 04:34 | DISCH ---
ADMISSION DIAGNOSES: 1. Chronic nausea. 2. Status post Ruperto-en-Y gastric bypass surgery. 3. Mild dehydration. 4. Pulmonary embolism on the right. 5. Fat necrosis of abdomen. 6. Unspecified surgical malabsorption. 7. Vitamin B12 deficiency. 8. Hypercholesterolemia. 9. Hypertension. 10.Irritable bowel syndrome. 11.Arthritis and gout. 12.Anxiety. 13.Depression. DISCHARGE DIAGNOSES: 1. Pulmonary embolism, on Eliquis. 2. Resolution of nausea and dry heaves. 3. Status post Ruperto-en-Y gastric bypass surgery. 4. Severe malnutrition. 5. Vomiting and dry heaving. 6. Hypertension. 7. General anxiety disorder. 8. Fat necrosis, lower abdomen. HISTORY: Aiyana presented to the emergency room with acute and chronic nausea, dry heaves, and abdominal discomfort on 08/11/2019. She reports that this has been going on since she had a gastric bypass surgery approximately 6 months ago. She had her lap band removed at that time. She was admitted. A CT scan did show an 8.4 x 4.8 cm heterogenous mass in the lower portion of the abdomen in the midline. She was started on IV fluids, and a right lower lung pulmonary emboli was noted on the CT scan, and she was started on heparin, given a 5000 units heparin bolus and started on heparin drip. On 08/12/2019, Erlin Lala MD, surgeon, did see her, and with her increasing nausea and vomiting and malnutrition, a triple lumen was placed on 08/13/2019, and she was started on TPN therapy. Throughout the hospital stay, she also was given TPN with replacement of her K-Phos, potassium. She did have an upper endoscopy on 08/15/2019. Hemoglobin was 8.7, and she received 1 unit of packed red blood cells. On 08/15, she did have an upper gastrointestinal endoscopy, and diet was backed down to step 2 because she became more nauseated on step 3. She remained on the heparin drip until 08/16 and then started on Eliquis, and that is what she will be going home on. Throughout her hospital stay, she received TPN until the morning of 08/17/2019, IV albumin, 2 units of packed red blood cells as well as multivitamin bags. Aiyana had several conversations and encouragement from dietitians depending on who was working that day. Color remained to be pale. She was quite anxious, but yet quite a flat affect. Denied any pain, tolerating step three diet well, and was able to be discharged to home on 08/17/2019. PHYSICAL EXAMINATION: GENERAL: Aiyana Ortiz is a 59-year-old female. VITAL SIGNS: Height is 5 feet 4.17 inches. Weight is 153 pounds. BMI is 26. TPR 97.3, 65, 18. Blood pressure 139/81. HEENT: Negative. NECK: Supple. HEART: Regular rate and rhythm. LUNGS: Clear. ABDOMEN: Soft and nontender. EXTREMITIES: Without peripheral edema. DISPOSITION: Discharged to home with home health care. CONDITION: Stable and improving. FOLLOWUP APPOINTMENT: With Vivian Haley PA-C, on 08/29/2019 at 10 a.m. HOME MEDICATIONS: Tylenol 650 mg every 4 hours p.r.n. pain, Eliquis use as directed 5 mg b.i.d. after starting dose at 10 mg b.i.d., Senna Plus 1 tablet twice daily, multivitamin 1 tablet twice daily, Zofran 4 mg oral q.4 hours p.r.n. nausea, #30. She has a scopolamine patch done. She is to take that off on 08/21/2019. Continue with Lexapro same dose as at home. Restart vitamins 1 at a time. She has already been taking the B vitamins, but we will start multivitamin in a day or two and gradually increase. Continue potassium 20 mEq per 20 mL daily. DIET: Step 3 gastric bypass diet, 65 g of protein. ACTIVITY: As tolerated, to walk 6 times daily. SPECIAL INSTRUCTIONS: 1. Keep a food journal and bring to clinic appointment. 2. Use incentive spirometer 10 times every hour while awake. Schedule an appointment with primary care provider within a week. A urinalysis should be checked at that time. To call on Tuesday and let bariatric staff know how she is doing.
--- NOTE | 2019-08-20 10:03 | OR ---
DATE OF PROCEDURE: 08/13/2019 SURGEON: Erlin Lala MD PREOPERATIVE DIAGNOSIS: Indication for central venous access. POSTOPERATIVE DIAGNOSIS: Indication for central venous access. OPERATIVE PROCEDURE: Insertion of left subclavian vein double-lumen Soria catheter ([id number]). ANESTHESIA: Local plus IV sedation. REGISTERED DIET TECHNICIAN: Aneudy Sommer MS-3 INDICATION FOR PROCEDURE: This is a 59-year-old presenting with some ongoing nausea and poor oral intake status post a band conversion to Ruperto-en-Y gastric bypass after initial hydration having albumin level down into the 1.3 range, and given this, we felt while working on getting the oral intake improved, we would need to have some TPN initiated and this may be somewhat of a long-term proposition depending on the ability to adequately reestablish oral intake. Given this, a Soria catheter as opposed to a more short-term central line will be placed. Potential risks of the procedure including bleeding, infection, pneumohemothorax, and vascular injury were reviewed, and the patient wishes to proceed. DETAILS OF PROCEDURE: The patient was taken to the operating room and placed in a supine position with the patient being heparinized for newly-diagnosed pulmonary embolism. The heparin had been turned off for 6 hours. The upper chest and neck areas were prepped and draped and the left subclavian area was anesthetized with 1% lidocaine mixed with Marcaine and the left subclavian vein was then cannulated, guidewire passed from there into the superior vena cava. Also, some additional local was then injected from the initial puncture site roughly 4 fingerbreadths inferiorly, and a secondary incision was made at the area of 4 fingerbreadths inferior to the original site, and the Soria catheter was then tunneled between those 2 points with the fibrous cuff to be just inside the skin on the lower incision. The catheter was cut such that the tip would lie in the area of the right atrial superior vena cava junction, and this was introduced to allow the peel-away catheter without difficulty. The radiologic confirmation showed good positioning and no evident complications. The ports were flushed with heparinized saline. The original puncture site was closed with a 4-0 subdermal Vicryl stitch and then a rapidly-absorbing catgut stitch of 5-0 Steri-Strip applied. The catheter at the external site was then approximated with some 3-0 nylon stitch. Dressing was applied. The patient was taken to recovery room in satisfactory condition. Erlin Lala MD /[id number]
--- NOTE | 2019-08-20 11:39 | PN ---
DATE OF SERVICE: 08/16/2019 The patient has been afebrile with stable vital signs. Oral intake was fairly good yesterday. They did find some protein drinks that the patient likes, and she was able to get around [address] Cartagena saw the patient and thought there might be some possibility we are dealing with underlying gallbladder disease. A HIDA scan is ordered. If that is positive, we would need to think in terms of getting the gallbladder out. If it is negative, then the next step would probably be to begin some oral anticoagulation later today. I think the patient probably would do better with one of the [id number] oral anticoagulants. I will ask Dr. Cartagena to give some advice in that regard. Otherwise, continue the present TPN and albumin infusions. Erlin Lala MD /[id number]
[2019-08-23] MEDS ORDERED: Apixaban 5 MG Tab PO SCH (19:00)
== END 2019-08-17 11:15 | disposition home health service (06) | DRG 393 ==
LOC: JP.ED 11:43 → JP.MS 16:16
PROVIDERS: ADMIT Internal Medicine; ATTEND Internal Medicine
PROC: 3E0436Z Introduction of Nutritional Substance into Central Vein, Percutaneous Approach (ICD-10-PCS; 2019-08-13)
PROC: 30233N1 Transfusion of Nonautologous Red Blood Cells into Peripheral Vein, Percutaneous Approach (ICD-10-PCS; 2019-08-14)
PROC: 0DJ08ZZ Inspection of Upper Intestinal Tract, Via Natural or Artificial Opening Endoscopic (ICD-10-PCS; principal; 2019-08-15)
DX: K65.4 Sclerosing mesenteritis (principal); I26.99 Other pulmonary embolism without acute cor pulmonale; E43 Unspecified severe protein-calorie malnutrition; K91.2 Postsurgical malabsorption, not elsewhere classified; E86.0 Dehydration; K28.9 Gastrojejunal ulcer, unspecified as acute or chronic, without hemorrhage or perforation; F32.9 Major depressive disorder, single episode, unspecified; M10.9 Gout, unspecified; K58.9 Irritable bowel syndrome, unspecified; F41.1 Generalized anxiety disorder; E78.00 Pure hypercholesterolemia, unspecified; I10 Essential (primary) hypertension; M19.90 Unspecified osteoarthritis, unspecified site; E53.8 Deficiency of other specified B group vitamins; Z90.49 Acquired absence of other specified parts of digestive tract; Z98.84 Bariatric surgery status; Z88.0 Allergy status to penicillin; Z79.899 Other long term (current) drug therapy; Z90.710 Acquired absence of both cervix and uterus; Z68.26 Body mass index [BMI] 26.0-26.9, adult
CPT/HCPCS: 36415; 36430; 74018; 74177; 74245; 78227; 80048; 80053; 81001; 82607; 82728; 83605; 83690; 83735; 83880; 84100; 85025; 85027; 85730; 86140; 86850; 86900; 86901; 86920; 86922; 96361; 96374; 99285-25; A9270-GY; J1642; J1644; J2060; J2250; J2405; J2704; J3010; J3480; J3490; J7030; J7050; P9016; P9047; Q9967